=== PATIENT | female | born 1945 | race Two or more races ===

== ENCOUNTER 2020-12-20 08:22 | Emergency (ER) | payer MEDICARE, MEDICAID, SELFPAY ==
--- NOTE | ~2020-12-20 | US_ITS ---
EXAMINATION: US VENOUS ULTRASOUND WITH DOPPLER LOWER EXTREMITY, BILATERAL CLINICAL INFORMATION: Bilateral leg edema. History of cancer. COMPARISON: None TECHNIQUE: Ultrasound of the deep veins is performed from the hip to the calf with compression sonography and color and pulse Doppler assessment. Spectral analysis with color-flow imaging is performed. FINDINGS: RIGHT: There is normal venous compression and respiratory variation and augmented flow. The visualized common femoral vein, superficial femoral vein, profunda femoral vein, popliteal vein, and the trifurcation region shows no evidence of deep venous thrombosis. There is no significant popliteal fossa cyst. LEFT: There is normal venous compression and respiratory variation and augmented flow. The visualized common femoral vein, superficial femoral vein, profunda femoral vein, popliteal vein, and the trifurcation region shows no evidence of deep venous thrombosis. There is no significant popliteal fossa cyst. There is a small Quinonez's cyst measuring 3.9 x 0.9 cm. If the patient's symptoms persist, followup ultrasound in 5 days 7 days might be of value to exclude proximal propagation from a non-visualized calf vein. US/US venous duplex LE BI IMPRESSION: No DVT demonstrated in the bilateral lower extremity. There are small left Quinonez's cyst measuring 3.9 x 0.9 cm.
--- NOTE | ~2020-12-20 | XR_ITS ---
EXAMINATION: XR CHEST CLINICAL INFORMATION: Abdominal pain and swelling lower legs COMPARISON: None TECHNIQUE: 2 views of the chest were obtained. FINDINGS: The lungs are expanded and clear of acute pneumonic process. There is a 7 mm calcified nodule left upper lobe likely granuloma. Heart size and pulmonary vascularity is normal. No gross bony abnormality seen. XR/XR chest 2V IMPRESSION: No acute cardiopulmonary process seen.
--- NOTE | ~2020-12-20 | CT_ITS ---
EXAMINATION: CT ABDOMEN AND PELVIS WITH CONTRAST CLINICAL INFORMATION: Lower back pain and abdominal pain. History of breast cancer. COMPARISON: None TECHNIQUE: Multidetector volumetric images were obtained from the superior aspect of the liver through the pubic symphysis following administration 85 mL of Omnipaque 350 intravenous contrast. Sagittal and coronal reformatted images were obtained on the technologist's workstation. Oral contrast: No This CT examination was performed using dose optimization techniques as appropriate, variously including the following: *Automated exposure control *Adjustment of mA and/or kV according to patient size (this includes techniques or standardized protocols for targeted exams where dose is matched to indication/reason for exam; i.e. extremities or head) *Use of iterative reconstruction technique DLP: 1030 mGy-cm FINDINGS: LUNG BASES: The heart is mildly enlarged. No pleural or pericardial effusion. LIVER, GALLBLADDER, AND BILIARY TREE: There is an 8 mm cyst seen within segment 2 of the liver. No intrahepatic bile duct dilatation is evident. No suspicious solid masses seen. The gallbladder is unremarkable with no evidence of radiopaque gallstones, gallbladder wall thickening, or obvious pericholecystic inflammatory changes. PANCREAS: Unremarkable. SPLEEN: Unremarkable. ADRENAL GLANDS: Unremarkable. KIDNEYS AND URETERS: There is motion artifact present limiting evaluation of the mid and lower poles of the right kidney and lower pole left kidney. No renal calculi identified. No hydronephrosis. There are bilateral small regions of cortical scarring. There are subcentimeter low-density lesions seen bilaterally likely representing cysts. There is bilateral mild perinephric stranding. Ureters appear unremarkable. BLADDER: Unremarkable. GASTROINTESTINAL TRACT: No free air is identified. No free fluid. No dilated loops of large or small bowel. No evidence of pericolonic inflammatory change. The appendix is visualized and appears unremarkable. ABDOMINAL WALL: There is a midline infraumbilical anterior abdominal wall hernia containing a few loops of small bowel without bowel wall thickening or mesenteric inflammatory change or fluid. Abdominal wall Defect width is approximately 7 cm. LYMPH NODES: No lymphadenopathy appreciated. VASCULAR: Portal vein patent. No abdominal aortic aneurysm. There is prominent calcified plaque seen at the origin of the celiac artery. PELVIC VISCERA: Unremarkable. OSSEOUS STRUCTURES: Changes of enthesopathy present. No suspicious destructive bony lesions identified. Multilevel degenerative disc is present within the lower thoracic and lumbar spine with grade 1 spondylolisthesis at the L5-S1 level with facet arthropathy. CT/CT abdomen pelvis w con IMPRESSION: No suspicious lytic or sclerotic lesions. Degenerative disc disease with grade 1 spondylolisthesis L5-S1 and facet arthropathy. Limitations in evaluation of the kidneys but without hydronephrosis or calculi identified and without hydroureter. Infrarenal anterior abdominal wall hernia containing loops of small bowel within it without evidence of incarceration.
[2020-12-20 08:27] VITALS: BP 173/73; PULSE 75; RESP 18; TEMP 37.1; O2SAT 95; BMI 25.6
[2020-12-20 09:06] VITALS: BP 167/83; PULSE 72; RESP 20; TEMP 37.6; O2SAT 98
--- NOTE | 2020-12-20 09:28 | ECG_ITS ---
Test Reason : WEAKNESS Blood Pressure : / mmHG Vent. Rate : 064 BPM Atrial Rate : 064 BPM P-R Int : 136 ms QRS Dur : 072 ms QT Int : 416 ms P-R-T Axes : 048 -40 014 degrees QTc Int : 429 ms Normal sinus rhythm Left axis deviation Minimal voltage criteria for LVH, may be normal variant Abnormal ECG No previous ECGs available Referred By: Karol William Electronically Signed By:CARLOS MATT
--- NOTE | 2020-12-20 09:58 | ED.ABDPAIN ---
HPI - Abdominal Pain General Chief Complaint: Abdominal Pain Stated Complaint: back pain, abd pain Time Seen by Provider: 12/20/20 08:47 Source: patient and family (Son ) Mode of arrival: ambulatory Limitations: language barrier (Ivorian-speaking) and other (Poor historian both patient and son patient with history of Alzheimer's dementia/CVA) History of Present Illness HPI narrative: 75-year-old female who is Ivorian-speaking recently moved from [place] approximately 1 week ago with her son who is also Ivorian-speaking with a past medical history of Alzheimer's dementia, CVA with left-sided residual weakness currently walks with a walker, currently on only aspirin, hypertension, hyperlipidemia and breast cancer currently on p.o. anastrozole chronically for her breast presenting to the ED with complaints of lower abdominal pain and right-sided lower back pain since she moved here from [place] approximately 1 week ago. Son reports that she has also been constipated although she had a bowel movement in the past few days there were small little balls and hard. Although he reports normal color and bowel movement. Son reports that the mother has had an intermittent cough since she has arrived. Although he reports she tested negative for COVID in [place] and when she arrived here a week ago. Son and patient deny any fevers, dizziness, lightheadedness, changes in vision, nausea/vomiting, neck pain/stiffness, chest pain, shortness of breath, palpitations, dyspnea on exertion, orthopnea, dysuria, hematuria, abnormal vaginal discharge, diarrhea, black or bloody stools or any any new weakness or falls. Or any other symptoms complaints or concerns at this time. MD elicited complaint: abdominal pain Pertinent past history: constipation Onset (ago): week(s) (One week) Pain Consistency: constant Location: suprapubic Severity: mild Quality: aching Radiation: R flank and back Exacerbating factors: nothing Relieving factors: nothing Associated symptoms: denies other symptoms Related Data Previous Rx's Medication Instructions Recorded acetaminophen-codeine 1 tab PO Q8H PRN #10 tab 12/20/20 cyclobenzaprine 10 mg PO Q8H #10 tab 12/20/20 Allergies Allergy/AdvReac Type Severity Reaction Status Date / Time No Known Allergies Allergy Verified 12/20/20 09:28 Review of Systems Review of Systems Constitutional : No trauma, No Weight loss, No Fever, No Chills, ENT/Mouth : No Hearing loss, No Ear Pain, No Nasal Congestion, No Sinus Pain, No Hoarseness, No sore throat, No Rhinorrhea, No Swallowing Difficulty Cardiovascular : No Chest Pain, No SOB, No CALIXTO, No Orthopnea Respiratory : No Cough, No Dyspnea, No wheezing Gastrointestinal : + abdominal pain, + intermittent constipation, No Nausea, No Vomiting, No Diarrhea, No Hematochezia, No Melena Genitourinary : No Dysuria, No Urinary Frequency, No Hematuria, No Urinary or Bowel Incontinence/retention Musculoskeletal : + Back pain, No neck pain, No joint stiffness, No joint swelling Skin : No Skin Lesions, No rash or signs of infection Neuro : No Weakness, No radiation, No Numbness, No Paresthesias, No headache, no loss of bowel or bladder incontinence, no saddle anesthesia Denies history of IV drug usage. Yes all other systems are reviewed and are negative Physical Exam Vital Signs: Vital Signs: Last Vital Signs Temp 989.5 F H 12/20/20 14:00 Pulse 81 12/20/20 14:00 Resp 16 12/20/20 14:00 BP 186/85 H 12/20/20 14:00 Pulse Ox 94 12/20/20 14:00 Body Mass Index 25.6 vital signs have been reviewed as normal and appeared to be correct. Blood pressure hypertensive at 173/73. Heart rate normal. Respiration rate normal. Temperature normal. Oxygen saturation normal. Appearance: Alert. Oriented X3. No acute distress. Head: Normal external exam. Normocephalic. Atraumatic. Eyes: PERRLA. EOMI. Conjunctiva and sclera normal. Eyelids normal. ENT: EAC normal. TM's Normal. Pharynx normal. Uvula midline. Moist mucous membranes. No trismus noted. No drooling noted. No muffled voice noted. Neck: Normal inspection. Neck supple. FROM. No adenopathy. Thyroid Normal. No meningeal signs. No neck mass noted. CVS: Normal heart rate and rhythm. Heart sound normal. No murmurs noted. Pulses normal throughout. Respiratory: No respiratory distress. Painless inspiration. Breath sounds normal. No wheezes/rales/rhonchi noted. Chest nontender. No accessory muscle usage noted or decreased air movement noted. Abdomen: Soft and mild tenderness to the suprapubic/right flank area. Bowel sounds normal in all 4 quadrants. No distention noted. No organomegaly noted. No visible injury noted. Back: No CVA tenderness. Full range of motion noted. No obvious deformities, or edema. Mild para-spinal muscular tenderness from lumbar region to coccyx. Full ROM in back and lower extremities. 5/5 strength hip extension/flexion, abduction, adduction. Mild Lumbar pain with hip flexion against resistance. Straight leg raise test negative on right; Straight leg raise test negative on left; Reflexes normal ankle and knee bilaterally; patient has baseline weakness to left lower extremity no weakness noted to right lower extremity Skin: Skin warm and dry. Normal skin color. Normal skin turgor. No rashes/lesions/lacerations noted. Extremities: +1 b/l lower pitting extremity edema. No calf tenderness noted. Patient with mild residual weakness and limited range of motion to left upper arm and left lower extremity similar compared to baseline per patient and son at bedside otherwise all other Extremities exhibit normal range of motion and nontender. Neuro: Oriented X 3. No motor deficit. No sensory deficit. Reflexes normal. Course Course Course Narrative: 9:30am - 75-year-old female presenting with her son both are Ivorian-speaking recently moved from [place] with complaints of lower abdominal pain radiating to her right flank/right lower back over the past week with associated constipation. - on exam patient is alert at baseline for mentation per son. Has left-sided residual weakness at baseline per son and patient. Patient mildly hypertensive at 173/73 otherwise all other vitals are within normal limits. Patient not in any acute distress. Lungs clear to auscultation. CV RRR. Abdomen is soft and mild tenderness to suprapubic abdomen/right flank and lower back. No obvious CVA tenderness noted. Patient also noted to have bilateral lower extremity +1 pitting edema. No calf tenderness is noted. - Plan: Labs, CXR, of abdomen and pelvis with IV contrast, EKG, bilateral venous duplex ultrasound of lower extremity and UA and re-evaluate. Reevaluation(s) Reevaluation #1: - BUN 20 - total bilirubin 1.4 - BNP 234 - otherwise all other labs within normal limits. UA within normal limits no evidence of UTI. COVID/RSV/flu negative. 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 Also intra renal abdominal wall hernia containing loops of bowel within it without evidence of incarceration. - therefore will DC home with symptomatic treatment and general surgical referral instructions return if any new or worsening symptoms to follow up with a primary care provider. Patient and family at bedside with her son understand and agree with this plan. Time: 14:50 MDM - Abdominal Pain Differential Diagnosis Differential diagnosis: Likely aortic dissection, acute appendicitis, bowel perforation, calculus of kidney, constipation, mesenteric ischemia, renal colic and small bowel obstruction Medical Records Attestation: I reviewed the patient's medical records. Lab Data Attestation: I reviewed the patient's lab results. Result diagrams: 12/20/20 11:37 12/20/20 11:37 Labs: Lab Results 12/20/20 12/20/20 12/20/20 Range/Units 10:19 11:37 11:37 WBC 8.2 (4.8-10.8) X10*3/uL RBC 5.23 (4.20-5.50) X10*6/uL Hgb 13.9 (12.0-16.0) g/dl Hct 43.8 (37-47) % MCV 83.7 (80-98) fL MCH 26.6 L (27.0-33.0) pg MCHC 31.7 (31.0-35.0) g/dl RDW 15.9 (11.0-16.0) % Plt Count 661 H (160-400) X10*3/uL MPV 9.9 (9.4-12.3) fL Immature Gran % (Auto) 0.4 (0.0-0.4) % Neut % (Auto) 77.1 H (45-73) % Lymph % (Auto) 12.7 L (20-40) % [facility] % (Auto) 7.1 (2-11) % Eos % (Auto) 2.1 (0-4) % Baso % (Auto) 0.6 (0-2) % Lymph # (Auto) 1.0 L (1.2-4.9) X10*3/uL [facility] # (Auto) 0.6 (0.1-1.2) X10*3/uL Eos # (Auto) 0.2 (0.0-0.4) X10*3/uL Baso # (Auto) 0.1 (0.0-0.2) X10*3/uL Abs Immat Gran (auto) 0.03 (0.00-0.03) X10*3/uL Absolute Neuts (auto) 6.3 (2.0-8.3) X10*3/uL Absolute Nucleated RBC 0.000 (0.0-0.012) X10*3/uL Nucleated RBC % (auto) 0.0 (0.0-0.2) /100WBC Hold Purple Top PT 13.0 (10.8-13.0) SEC INR 1.1 (0.9-1.1) APTT (24.1-38.0) SEC Sodium (135-145) mmol/L Potassium (3.3-5.1) mmol/L Chloride (96-108) mmol/L Carbon Dioxide (22-29) mmol/L Anion Gap (12-20) BUN (9-16) mg/dL Creatinine (0.5-1.4) mg/dL Estim Creat Clear Calc Estimated GFR Random Glucose (60-115) mg/dL Calcium (8.4-10.2) mg/dL Magnesium (1.6-2.6) mg/dL Total Bilirubin (0.0-1.0) mg/dL AST (5-31) U/L ALT (0-31) U/L Alkaline Phosphatase (39-117) U/L B-Natriuretic Peptide (<100) pg/mL Total Protein (6.5-8.0) g/dL Albumin (3.5-5.0) g/dL Lipase (8-78) U/L Urine Color STRAW Urine Appearance CLEAR Urine pH 7.0 (5.0-8.0) Ur Specific [place] 1.010 (1.005-1.025) Urine Protein NEG (NEG-TRACE) MG/DL Urine Glucose (UA) NEG (NEG) MG/DL Urine Ketones NEG (NEG) MG/DL Urine Blood NEG (NEG) Urine Nitrite NEG (NEG) Ur Leukocyte Esterase NEG (NEG) Coronavirus (PCR) (Negative) Influenza Type A (PCR) (Negative) Influenza Type B (PCR) (Negative) RSV RNA Qual (PCR) (Negative) 12/20/20 12/20/20 12/20/20 Range/Units 11:37 11:37 11:37 WBC (4.8-10.8) X10*3/uL RBC (4.20-5.50) X10*6/uL Hgb (12.0-16.0) g/dl Hct (37-47) % MCV (80-98) fL MCH (27.0-33.0) pg MCHC (31.0-35.0) g/dl RDW (11.0-16.0) % Plt Count (160-400) X10*3/uL MPV (9.4-12.3) fL Immature Gran % (Auto) (0.0-0.4) % Neut % (Auto) (45-73) % Lymph % (Auto) (20-40) % [facility] % (Auto) (2-11) % Eos % (Auto) (0-4) % Baso % (Auto) (0-2) % Lymph # (Auto) (1.2-4.9) X10*3/uL [facility] # (Auto) (0.1-1.2) X10*3/uL Eos # (Auto) (0.0-0.4) X10*3/uL Baso # (Auto) (0.0-0.2) X10*3/uL Abs Immat Gran (auto) (0.00-0.03) X10*3/uL Absolute Neuts (auto) (2.0-8.3) X10*3/uL Absolute Nucleated RBC (0.0-0.012) X10*3/uL Nucleated RBC % (auto) (0.0-0.2) /100WBC Hold Purple Top PT (10.8-13.0) SEC INR (0.9-1.1) APTT (24.1-38.0) SEC Sodium (135-145) mmol/L Potassium (3.3-5.1) mmol/L Chloride (96-108) mmol/L Carbon Dioxide (22-29) mmol/L Anion Gap (12-20) BUN (9-16) mg/dL Creatinine (0.5-1.4) mg/dL Estim Creat Clear Calc Estimated GFR Random Glucose (60-115) mg/dL Calcium (8.4-10.2) mg/dL Magnesium 2.2 (1.6-2.6) mg/dL Total Bilirubin (0.0-1.0) mg/dL AST (5-31) U/L ALT (0-31) U/L Alkaline Phosphatase (39-117) U/L B-Natriuretic Peptide 234 H (<100) pg/mL Total Protein (6.5-8.0) g/dL Albumin (3.5-5.0) g/dL Lipase (8-78) U/L Urine Color Urine Appearance Urine pH (5.0-8.0) Ur Specific [place] (1.005-1.025) Urine Protein (NEG-TRACE) MG/DL Urine Glucose (UA) (NEG) MG/DL Urine Ketones (NEG) MG/DL Urine Blood (NEG) Urine Nitrite (NEG) Ur Leukocyte Esterase (NEG) Coronavirus (PCR) NEGATIVE (Negative) Influenza Type A (PCR) NEGATIVE (Negative) Influenza Type B (PCR) NEGATIVE (Negative) RSV RNA Qual (PCR) NEGATIVE (Negative) 12/20/20 12/20/20 12/20/20 Range/Units 11:37 11:37 11:37 WBC (4.8-10.8) X10*3/uL RBC (4.20-5.50) X10*6/uL Hgb (12.0-16.0) g/dl Hct (37-47) % MCV (80-98) fL MCH (27.0-33.0) pg MCHC (31.0-35.0) g/dl RDW (11.0-16.0) % Plt Count (160-400) X10*3/uL MPV (9.4-12.3) fL Immature Gran % (Auto) (0.0-0.4) % Neut % (Auto) (45-73) % Lymph % (Auto) (20-40) % [facility] % (Auto) (2-11) % Eos % (Auto) (0-4) % Baso % (Auto) (0-2) % Lymph # (Auto) (1.2-4.9) X10*3/uL [facility] # (Auto) (0.1-1.2) X10*3/uL Eos # (Auto) (0.0-0.4) X10*3/uL Baso # (Auto) (0.0-0.2) X10*3/uL Abs Immat Gran (auto) (0.00-0.03) X10*3/uL Absolute Neuts (auto) (2.0-8.3) X10*3/uL Absolute Nucleated RBC (0.0-0.012) X10*3/uL Nucleated RBC % (auto) (0.0-0.2) /100WBC Hold Purple Top SEE NOTE PT (10.8-13.0) SEC INR (0.9-1.1) APTT 33.9 (24.1-38.0) SEC Sodium 142 (135-145) mmol/L Potassium 4.3 (3.3-5.1) mmol/L Chloride 108 (96-108) mmol/L Carbon Dioxide 25 (22-29) mmol/L Anion Gap 13 (12-20) BUN 20 H (9-16) mg/dL Creatinine 1.11 (0.5-1.4) mg/dL Estim Creat Clear Calc 38.3 Estimated GFR 48 Random Glucose 93 (60-115) mg/dL Calcium 9.1 (8.4-10.2) mg/dL Magnesium (1.6-2.6) mg/dL Total Bilirubin 1.4 H (0.0-1.0) mg/dL AST 22 (5-31) U/L ALT 17 (0-31) U/L Alkaline Phosphatase 59 (39-117) U/L B-Natriuretic Peptide (<100) pg/mL Total Protein 6.7 (6.5-8.0) g/dL Albumin 3.8 (3.5-5.0) g/dL Lipase 47 (8-78) U/L Urine Color Urine Appearance Urine pH (5.0-8.0) Ur Specific [place] (1.005-1.025) Urine Protein (NEG-TRACE) MG/DL Urine Glucose (UA) (NEG) MG/DL Urine Ketones (NEG) MG/DL Urine Blood (NEG) Urine Nitrite (NEG) Ur Leukocyte Esterase (NEG) Coronavirus (PCR) (Negative) Influenza Type A (PCR) (Negative) Influenza Type B (PCR) (Negative) RSV RNA Qual (PCR) (Negative) Imaging Data Chest x-ray: Attestation: I personally reviewed and interpreted this imaging study as follows: Radiologist's impression: FINDINGS: The lungs are expanded and clear of acute pneumonic process. There is a 7 mm calcified nodule left upper lobe likely granuloma. Heart size and pulmonary vascularity is normal. No gross bony abnormality seen. XR/XR chest 2V IMPRESSION: No acute cardiopulmonary process seen. Bilateral lower extremity venous duplex ultrasound: Attestation: I personally reviewed and interpreted this imaging study as follows: Radiologist's impression: FINDINGS: RIGHT: There is normal venous compression and respiratory variation and augmented flow. The visualized common femoral vein, superficial femoral vein, profunda femoral vein, popliteal vein, and the trifurcation region shows no evidence of deep venous thrombosis. There is no significant popliteal fossa cyst. LEFT: There is normal venous compression and respiratory variation and augmented flow. The visualized common femoral vein, superficial femoral vein, profunda femoral vein, popliteal vein, and the trifurcation region shows no evidence of deep venous thrombosis. There is no significant popliteal fossa cyst. There is a small Quinonez's cyst measuring 3.9 x 0.9 cm. If the patient's symptoms persist, followup ultrasound in 5 days 7 days might be of value to exclude proximal propagation from a non-visualized calf vein. US/US venous duplex LE BI IMPRESSION: No DVT demonstrated in the bilateral lower extremity. There are small left Quinonez's cyst measuring 3.[address] scan of abdomen pelvis IV contrast: Attestation: I personally reviewed and interpreted this imaging study as follows: Radiologist's impression: FINDINGS: LUNG BASES: The heart is mildly enlarged. No pleural or pericardial effusion. LIVER, GALLBLADDER, AND BILIARY TREE: There is an 8 mm cyst seen within segment 2 of the liver. No intrahepatic bile duct dilatation is evident. No suspicious solid masses seen. The gallbladder is unremarkable with no evidence of radiopaque gallstones, gallbladder wall thickening, or obvious pericholecystic inflammatory changes. PANCREAS: Unremarkable. SPLEEN: Unremarkable. ADRENAL GLANDS: Unremarkable. KIDNEYS AND URETERS: There is motion artifact present limiting evaluation of the mid and lower poles of the right kidney and lower pole left kidney. No renal calculi identified. No hydronephrosis. There are bilateral small regions of cortical scarring. There are subcentimeter low-density lesions seen bilaterally likely representing cysts. There is bilateral mild perinephric stranding. Ureters appear unremarkable. BLADDER: Unremarkable. GASTROINTESTINAL TRACT: No free air is identified. No free fluid. No dilated loops of large or small bowel. No evidence of pericolonic inflammatory change. The appendix is visualized and appears unremarkable. ABDOMINAL WALL: There is a midline infraumbilical anterior abdominal wall hernia containing a few loops of small bowel without bowel wall thickening or mesenteric inflammatory change or fluid. Abdominal wall Defect width is approximately 7 cm. LYMPH NODES: No lymphadenopathy appreciated. VASCULAR: Portal vein patent. No abdominal aortic aneurysm. There is prominent calcified plaque seen at the origin of the celiac artery. PELVIC VISCERA: Unremarkable. OSSEOUS STRUCTURES: Changes of enthesopathy present. No suspicious destructive bony lesions identified. Multilevel degenerative disc is present within the lower thoracic and lumbar spine with grade 1 spondylolisthesis at the L5-S1 level with facet arthropathy. CT/CT abdomen pelvis w con IMPRESSION: No suspicious lytic or sclerotic lesions. Degenerative disc disease with grade 1 spondylolisthesis L5-S1 and facet arthropathy. Limitations in evaluation of the kidneys but without hydronephrosis or calculi identified and without hydroureter. Infrarenal anterior abdominal wall hernia containing loops of small bowel within it without evidence of incarceration. ECG Data Attestation: I personally reviewed and interpreted this ECG as follows: ECG interpretation date: 12/20/20 ECG interpretation time: 09:57 Interpretation: Normal sinus rhythm with a ventricular rate of 64 with left axis deviation with minimal voltage criteria for LVH with nonspecific ST abnormalities no acute ischemic changes noted. No prior EKGs in our system to compare to as patient just arrived from [place]. Critical Care Time Critical Care Time Critical Care Time: Yes Total Critical Care Time: 60 Attestation: I personally attest to this time spent taking care of the patient Discharge Plan Discharge Clinical Impression: Degenerative disc disease, lumbar, Abdominal wall hernia Patient Disposition: Home, Self-Care Instructions: Degenerative Disc Disease (ED), Ventral Hernia (ED) Prescriptions: New cyclobenzaprine 10 mg tablet 10 mg PO Q8H Qty: 10 RF: 0 acetaminophen-codeine 300-30 mg tablet 1 tab PO Q8H PRN (Reason: pain) Qty: 10 RF: 0 Referrals: Duke Gudino MD [Physician] - 2 days (Abdominal hernia) Print Language: Ivorian [facility] Past Medical History Attestation statement: The following information was validated with the patient. Social History Social History Alcohol intake: never Smoking Status: Never smoker Use of substances other than those prescribed or required for medical reasons: No Advance Directives: Yes Advance Directives Information Provided: Yes Advance Directives on File: No
[2020-12-20 10:42] LABS: Glucose Urine UA NEG (NEG); Leukocyte Esterase Urine NEG (NEG); Nitrite Urine NEG (NEG); Urine Blood NEG (NEG); Urine Ketones NEG (NEG); Urine Protein NEG (NEG-TRACE)
[2020-12-20 10:43] LABS: Appearance Urine CLEAR; Color Urine STRAW
[2020-12-20 11:18] VITALS: BP 153/80; PULSE 70; RESP 16; O2SAT 98
--- NOTE | 2020-12-20 11:25 | PC.NURSE ---
PT IS A/O X 2 DID NOT KNOW THE YEAR. PT'S SON IS AT BEDSIDE. PT SON STATES THAT PT FIRST C/O R FLANK PAIN THEN ABD PAIN. PT HAS URINE FREQUENCY X 1WK. PT CAME FROM [place] 1 WK AGO AND HER SON HAS BEEN HER [employer] INSPECTOR.
[2020-12-20 11:44] LABS: MANUAL DIFF FLAG NO
[2020-12-20 11:47] LABS: Basophils Absolute Auto 0.1 X10*3/uL (0.0-0.2); Basophils Percent Auto 0.6 % (0-2); Eosinophils Absolute Auto 0.2 X10*3/uL (0.0-0.4); Eosinophils Percent Auto 2.1 % (0-4); Hematocrit 43.8 % (37-47); Hemoglobin 13.9 g/dl (12.0-16.0); Imm Gran Abs Auto 0.03 X10*3/uL (0.00-0.03); Imm Gran Pct Auto 0.4 % (0.0-0.4); Lymphocytes Percent Auto 12.7 % (20-40); Mean Corpuscular HGB Conc 31.7 g/dl (31.0-35.0); Mean Corpuscular Hemoglobin 26.6 pg (27.0-33.0); Mean Corpuscular Volume 83.7 fL (80-98); Mean Platelet Volume 9.9 fL (9.4-12.3); Monocytes Absolute Auto 0.6 X10*3/uL (0.1-1.2); Monocytes Percent Auto 7.1 % (2-11); Neutrophils Absolute Auto 6.3 X10*3/uL (2.0-8.3); Neutrophils Percent Auto 77.1 % (45-73); Platelet Count 661 X10*3/uL (160-400); Red Blood Count 5.23 X10*6/uL (4.20-5.50); Red Cell Distribution Width 15.9 % (11.0-16.0); White Blood Count 8.2 X10*3/uL (4.8-10.8)
[2020-12-20 11:54] LABS: INTERNATIONAL NORM RATIO 1.1 (0.9-1.1)
[2020-12-20 11:57] LABS: Partial Thromboplastin Time 33.9 SEC (24.1-38.0)
[2020-12-20 12:12] LABS: Alanine Aminotransferase 17 U/L (0-31); Albumin Level 3.8 g/dL (3.5-5.0); Alkaline Phosphatase 59 U/L (39-117); Anion Gap 13 (12-20); Aspartate Amino Transferase 22 U/L (5-31); Bilirubin Total 1.4 mg/dL (0.0-1.0); Blood Urea Nitrogen 20 mg/dL (9-16); Calcium 9.1 mg/dL (8.4-10.2); Carbon Dioxide 25 mmol/L (22-29); Chloride 108 mmol/L (96-108); Creatinine Clr Calc Pharmacy 38.3; Estimated Glomerular Filt Rate 48; Glucose Random 93 mg/dL (60-115); Lipase 47 U/L (8-78); Potassium 4.3 mmol/L (3.3-5.1); Sodium 142 mmol/L (135-145); Total Protein 6.7 g/dL (6.5-8.0)
[2020-12-20 12:13] LABS: Magnesium 2.2 mg/dL (1.6-2.6)
[2020-12-20 12:17] LABS: B Type Natriuretic Peptide 234 pg/mL (<100)
[2020-12-20 12:27] LABS: Influenza A PCR NEGATIVE (Negative); Influenza B PCR NEGATIVE (Negative); Resp Syncy Virus RNA Qual PCR NEGATIVE (Negative); SARS COV2 PCR INHOUSE NEGATIVE (Negative)
[2020-12-20 14:00] VITALS: BP 186/85; PULSE 81; RESP 16; TEMP 36.9; O2SAT 94
[2020-12-20] MEDS: iohexoL 350 MG/ML 100 ML INFUS..BTL IV (14:00)
--- NOTE | 2020-12-20 14:09 | PC.NURSE ---
PER PT'S SON, PT DID NOT TAKE HER B/P MEDS TODAY 186/85-76, PT IS ASYMPTOMATIC. AWARE.
--- NOTE | 2020-12-20 14:14 | PC.NURSE ---
PER MLP (DAVID) PT/SON HAD PT'S MEDS ON THEIR PERSON. MLP (DAVID) GAVE PERMISSION FOR PT TO OWN MEDS WHICH WERE GIVEN TO PT BY HER SON. PT WAS GIVEN METORPROLOL TARTRATE 50MG PO X 1, LISINOPRIL 40MG PO X 1 AND AMLODIPINE 5MG PO X 1. WITH WATER.
== END 2020-12-20 15:03 | disposition home or self-care (01) ==
PROVIDERS: Physician Assistant Medical; Emergency Provider Emergency Medicine
DX: M51.36 Other intervertebral disc degeneration, lumbar region (principal); K43.9 Ventral hernia without obstruction or gangrene; R60.0 Localized edema; R10.30 Lower abdominal pain, unspecified; M54.5 Low back pain; K59.00 Constipation, unspecified; I10 Essential (primary) hypertension; Z20.822 Contact with and (suspected) exposure to COVID-19; E78.5 Hyperlipidemia, unspecified; G30.9 Alzheimer's disease, unspecified; F02.80 Dementia in other diseases classified elsewhere, unspecified severity, without behavioral disturbance, psychotic disturbance, mood disturbance, and anxiety; Z86.73 Personal history of transient ischemic attack (TIA), and cerebral infarction without residual deficits; Z85.3 Personal history of malignant neoplasm of breast; Z79.82 Long term (current) use of aspirin
CPT/HCPCS: 0241U; 36415; 71046; 74177; 80053; 81003; 83690; 83735; 83880; 85025; 85610; 85730; 93005; 93970; 99285; 99291; Q9967

== ENCOUNTER 2020-12-29 08:20 | Emergency (ER) | payer MEDICARE, MEDICAID, SELFPAY ==
[2020-12-29] VITALS (8 sets, daily range): BP systolic 114–172; BP diastolic 51–83; PULSE 63–93; RESP 17–20; TEMP 37.2–37.3; O2SAT 96–99; BMI 29.7
--- NOTE | ~2020-12-29 | XR_ITS ---
EXAMINATION: TWO-VIEW CHEST, RIGHT SHOULDER, RIGHT ELBOW, AND RIGHT HAND AND WRIST. CLINICAL INFORMATION: Pain COMPARISON: Chest x-ray of December 20, 2020 TECHNIQUE: Three-view right hand and wrist, 3 view right elbow, 2 view right shoulder, and PA and lateral chest. FINDINGS: PA and lateral views of the chest do not demonstrate any evidence of acute parenchymal disease, pneumothorax, or pleural effusion. Heart normal size. No evidence of pulmonary edema. Multilevel degenerative disc disease is seen within the thoracic spine. 2 views of the right shoulder demonstrate calcific tendinitis. No acute fracture or dislocation is evident. There appears be osteopenia of visualized bones. Views of the right elbow do not demonstrate any evidence of acute fracture or dislocation. There appears to be medial and lateral epicondylitis. A small effusion is evident. Clinical correlation with recent acute trauma is recommended. Mild spurring is present. An osteochondroma is seen about the proximal radius. Views of the right hand and wrist do not demonstrate any evidence of acute fracture or dislocation. There is some degenerative change involving the distal radius. There is some mild degenerative spurring seen about the first carpal metacarpal joint. There is a region of mildly increased density with some cortical irregularity involving the shaft of the fifth metacarpal and a metastatic lesion cannot be excluded. There is also a region of some density about the distal diaphysis of the second metacarpal which may be related to osteopenia or possible infiltrative process. There appears to be some mild cortical irregularity in this region along the radial aspect. The fingers are held in flexion making evaluation of the fingers difficult. XR/XR shoulder RT min 2V IMPRESSION: Calcific tendinitis of the right shoulder. No acute parenchymal disease within the chest. Small right elbow effusion with mediolateral epicondylitis. Occult fracture not excluded. Osteochondroma distal radius. No evidence of acute fracture or dislocation of the right hand and wrist but question possible infiltrative processes within the second and fifth metacarpals.
--- NOTE | ~2020-12-29 | CT_ITS ---
EXAMINATION: CT ABDOMEN AND PELVIS WITHOUT CONTRAST CLINICAL INFORMATION: Atraumatic right flank/back pain and hip pain. COMPARISON: CT abdomen 12/20/2020 TECHNIQUE: Multidetector volumetric imaging was performed from the superior aspect of the liver through the pubic symphysis. Sagittal and coronal reformatted images were obtained on the technologist's workstation. This CT examination was performed using dose optimization techniques as appropriate, variously including the following: *Automated exposure control *Adjustment of mA and/or kV according to patient size (this includes techniques or standardized protocols for targeted exams where dose is matched to indication/reason for exam; i.e. extremities or head) *Use of iterative reconstruction technique DLP: 1097 mGy-cm FINDINGS: LUNG BASES: The heart size is normal. There is minimal bibasilar atelectasis. LIVER, GALLBLADDER, AND BILIARY TREE: The liver is normal in size, shape, and attenuation. There is a small hypodense area in the left hepatic lobe measuring 7 mm probable cyst. No additional lesions seen. There is no intrahepatic ductal dilatation. The gallbladder is unremarkable with no evidence of radiopaque gallstones, gallbladder wall thickening, or obvious pericholecystic inflammatory changes. PANCREAS: Unremarkable. SPLEEN: The spleen is enlarged measuring 13 cm in anterior posterior length but homogeneous in density. ADRENAL GLANDS: The left adrenal gland is mildly prominent compared to right side. KIDNEYS AND URETERS: The kidneys are normal in size, shape, and attenuation. There are 2 punctate 1 mm calcifications or stones in the lower pole calyx right kidney. No additional radiopaque calculi seen. There is no caliectasis or hydronephrosis. BLADDER: The bladder is distended and appears unremarkable. GASTROINTESTINAL TRACT: There is scattered stool and gas seen throughout the colon without any significant distention. The small bowel loops are normal caliber. The appendix is normal caliber. There is no free air or inflammatory changes. ABDOMINAL WALL: There is diffuse thinning of infraumbilical midline anterior abdominal wall with mild herniation of small bowel segments similar to previous study. LYMPH NODES: Normal. VASCULAR: Unremarkable. PELVIC VISCERA: The uterus is surgically removed or atrophied. No adnexal mass seen. There is no free fluid. OSSEOUS STRUCTURES: There is anterolisthesis L5 over S1 with degenerative vacuum disc phenomena L5-S1 disc level and L1-L2 disc level. There is no fracture, lytic or sclerotic process seen. There is mild bilateral neural foraminal narrowing at L5-S1 disc level from underlying moderate diffuse pseudo disc bulge and facet joint arthropathy. CT/CT abdomen pelvis wo con IMPRESSION: Two punctate 1 mm calcifications seen in lower pole calyx without any caliectasis. These were not well visualized on the previous study. These were not visualized on the previous CT abdomen exam. Mild constipation. Infraumbilical anterior abdominal wall hernia containing loop of small bowel segments. Prominent left adrenal gland, stable. Mild splenomegaly. Probable small cyst left hepatic lobe.
--- NOTE | 2020-12-29 09:10 | ECG_ITS ---
Test Reason : ABDOMINAL PAIN Blood Pressure : / mmHG Vent. Rate : 066 BPM Atrial Rate : 066 BPM P-R Int : 136 ms QRS Dur : 076 ms QT Int : 418 ms P-R-T Axes : 050 -41 014 degrees QTc Int : 438 ms Normal sinus rhythm Left axis deviation Minimal voltage criteria for LVH, may be normal variant Abnormal ECG When compared with ECG of 20-DEC-2020 09:57, No significant change was found Referred By: Karol William Electronically Signed By:Jimmy Martínez
--- NOTE | 2020-12-29 10:50 | ED_ITS ---
HPI - Back Pain/Injury General Chief Complaint: Abdominal Pain Stated Complaint: r flank pain Time Seen by Provider: 12/29/20 08:52 Source: patient and family (Son who is [place]ayan-speaking) Mode of arrival: ambulatory Limitations: language barrier (Patient and son [place]ayan-speaking) and other (Patient is a poor historian she has a history of Alzheimer's dementia/CVA with left residual weakness) History of Present Illness HPI Narrative: 75-year-old female who is [place]-speaking recently moved from [place] approximately 2 weeks ago with her son who permanently resides here who are both [place]ayan speaking patient has a past medical history of Alzheimer's dementia, CVA with left-sided residual weakness currently walks with a walker, currently on only aspirin, hypertension, hyperlipidemia and breast cancer cur rently on p.o. anastrozole chronically for her breast presenting to the ED with complaints of atraumatic right arm/shoulder pain and right back/hip pain for the past few days worse today. Her son reports that there are multiple steps in her household in her bedroom is upstairs and so is the bathroom therefore every day multiple times throughout the day she is leaning on him while he brings her up the stairs and it is becoming very difficult for the son. He reports he is also not able to sleep due to the patient just complaining of pain in multiple aspects of her body but mainly in the right arm/right shoulder/right back/right hip even when he tries to reposition her in the bed. He reports that she has not fallen. She is not on any blood thinners other than the aspirin. Son and patient deny any fevers, dizziness, lightheadedness, changes in vision, nausea/vomiting, neck pain/stiffness, sore throat, cough, chest pain, dyspnea on exertion, orthopnea, shortness of breath, palpitations, abdominal pain, dysuria, hematuria, abnormal vaginal discharge, diarrhea, black or bloody stools, falls, new focal or general weakness or any other symptoms complaints or concerns at this time. Related Data Previous Rx's Medication Instructions Recorded acetaminophen-codeine 1 tab PO Q8H PRN #10 tab 12/20/20 cyclobenzaprine 10 mg PO Q8H #10 tab 12/20/20 acetaminophen [Tylenol Extra 1,000 mg PO QID PRN #14 tab 12/29/20 Strength] cyclobenzaprine 10 mg PO Q8H #10 tab 12/29/20 lorazepam [Ativan] 0.5 mg PO BEDTIME PRN #20 tab 12/29/20 wheelchair #1 ea 12/29/20 Allergies Allergy/AdvReac Type Severity Reaction Status Date / Time No Known Allergies Allergy Verified 12/20/20 09:28 Review of Systems Review of Systems: Constitutional : No trauma, No Weight loss, No Fever, No Chills, ENT/Mouth : No Hearing loss, No Ear Pain, No Nasal Congestion, No Sinus Pain, No Hoarseness, No sore throat, No Rhinorrhea, No Swallowing Difficulty Cardiovascular : No Chest Pain, No SOB, No CALIXTO, No orthopnea Respiratory : No Cough, No Dyspnea Gastrointestinal : No Nausea, No Vomiting, No Diarrhea, No abdominal Pain, No Hematochezia, No Melena Genitourinary : No Dysuria, No Urinary Frequency, No Hematuria, No Urinary or Bowel Incontinence/retention Musculoskeletal : + Back pain, + Right arm joint pain, No neck pain, No joint stiffness, No joint swelling Skin : No Skin Lesions, No rash or signs of infection Neuro : Patient has chronic left-sided residual weakness from CVA no new focal weakness. No radiation, No Numbness, No Paresthesias, No headache, no loss of bowel or bladder incontinence, no saddle anesthesia, No radiation Denies history of IV drug usage. Yes all other systems are reviewed and are negative [facility] Past Medical History Attestation statement: The following information was validated with the patient. Social History Social History Alcohol intake: never Smoking Status: Never smoker Advance Directives: No Advance Directives Information Provided: Yes Physical Exam Vital Signs: Vital Signs: Last Vital Signs Temp 99.2 F 12/29/20 12:00 Pulse 93 12/29/20 15:04 Resp 18 12/29/20 14:14 BP 136/79 12/29/20 15:04 Pulse Ox 96 12/29/20 12:00 Body Mass Index 29.7 vital signs have been reviewed as normal and appeared to be correct. Blood pressure normal. Heart rate normal. Respiration rate normal. Temperature normal. Oxygen saturation normal. Appearance: Alert. Oriented X3. No acute distress. Head: Normal external exam. Normocephalic. Atraumatic. No Pradhan signs noted. No raccoon eyes noted Eyes: PERRLA. EOMI. Conjunctiva and sclera normal. Eyelids normal. ENT: EAC normal. TM's Normal. Pharynx normal. Uvula midline. Moist mucous membranes. No trismus noted. No drooling noted. No muffled voice noted. Neck: Normal inspection. Neck supple. FROM. No adenopathy. Thyroid Normal. No meningeal signs. No neck mass noted. CVS: Normal heart rate and rhythm. Heart sound normal. No murmurs noted. Pulses normal throughout. Respiratory: No respiratory distress. Painless inspiration. Breath sounds normal. No wheezes/rales/rhonchi noted. Chest nontender. No accessory muscle usage noted or decreased air movement noted. Abdomen: Soft and nontender. Bowel sounds normal in all 4 quadrants. No distention noted. No organomegaly noted. No visible injury noted. Back: No CVA tenderness. Full range of motion noted. No obvious deformities, or edema. Mild para-spinal muscular tenderness from lumbar region to coccyx. Full ROM in back and lower extremities. 5/5 strength hip extension/flexion, abduction, adduction. Mild Lumbar pain with hip flexion against resistance. Straight leg raise test negative on right; Straight leg raise test negative on left; Reflexes normal ankle and knee bilaterally; EHL motor strength normal bilaterally. No rashes/lesion/induration/fluctuance or signs infection noted. Skin: Skin warm and dry. Normal skin color. Normal skin turgor. No rashes/lesions/lacerations noted. Extremities: No lower extremity edema. No calf tenderness noted. Patient with moderate tenderness to palpation to right hand/wrist/forearm/elbow/upper arm/elbow although patient has full range of motion no signs of trauma and no pitting edema noted. No laxity noted to all joints. No signs of infection noted. Patient with residual weakness and limited range of motion to left upper arm and left lower extremity similar when compared to baseline per patient and son. Otherwise all other Extremities exhibit normal range of motion and nontender. Neuro: Oriented X 3. No motor deficit. No sensory deficit. Reflexes normal. Patient has a normal steady gait. Course Course Course Narrative: 16pm - labs reviewed and patient with an elevated white blood cell count 43876. - BUN 17. - Random glucose 131. - Total bilirubin 2.1. - patient's troponin was 93.5 then went down to 79.0 therefore negative delta. - BNP 259 - otherwise all other labs are within normal limits. - UA within normal limits no evidence of UTI. - COVID/RSV/flu negative. - EKG was normal sinus rhythm no acute ischemic changes are noted. - therefore I called the son back and the and the son is now at bedside with case management for possible placement to LTC vs discharging - although the patient just recently got health insurance in [place], does not have a primary care as of yet although has an appointment with PCP Jaycee Macdonald on January 13. They also have a social security appointment on Sunday of this week. - the son and are concerned due to there are having to bring the patient up and down 1 flight of stairs multiple times a day due to her bedroom and bathroom are upstairs. - although Family is hesitant for placing the patient in long-term care due to physical therapy decided that she would not benefit from short-term rehab. - although at the end of the meeting patient's son/family decided that they will take her home I gave them a prescription for a wheelchair, Ativan, Flexeril and Tylenol and he will try to take care of her at home until the patient can be seen by her PCP Monika Macdonald and then they can have more services at that time. Therefore will be discharged at this time. MDM - Back Pain/Injury MDM Narrative Medical decision making narrative: 9:10am 75-year-old presenting with her son both for [place]ayan-speaking patient recently moved from [place] to permanently reside with her son who permanently resides here approximately 2 weeks ago at baseline per son presenting to the ED with complaints of atraumatic right shoulder/upper arm/lower arm/hand and wrist pain and right lower back pain/hip/gluteal pain for the past few days worse today. - on exam patient is alert at baseline for mentation per son. Has left-sided residual weakness at baseline per son and patient. Vital signs are stable within normal limits. No additional/New focal neuro deficits are noted. Patient is not in any acute distress. Patient has limited range of motion to right shoulder/arm although no obvious signs of trauma, no pitting edema to right upper extremity and no laxity or signs of infection. Patient with mild tenderness to palpation to right paraspinous lumbar musculature and right hip and gluteal pain. No signs of infection no rashes noted. Abdomen is soft and nontender. No CVA tenderness noted bilaterally. Patient does not have any lower extremity edema or calf tenderness noted. - Plan: Labs, CT scan of abd/pelvis, x-ray of right shoulder/right elbow/right hand and wrist. Provide 975 mg of Tylenol and 5 mg of Flexeril. If all is negative Obtain a case management possible PT consult and re-evaluate. Medical Records Attestation: I reviewed the patient's medical records. Lab Data Attestation: I reviewed the patient's lab results. Result diagrams: 12/29/20 10:55 12/29/20 10:54 Labs: Lab Results 12/29/20 12/29/20 12/29/20 Range/Units 10:52 10:52 10:54 WBC (4.8-10.8) X10*3/uL RBC (4.20-5.50) X10*6/uL Hgb (12.0-16.0) g/dl Hct (37-47) % MCV (80-98) fL MCH (27.0-33.0) pg MCHC (31.0-35.0) g/dl RDW (11.0-16.0) % Plt Count (160-400) X10*3/uL MPV (9.4-12.3) fL Immature Gran % (Auto) (0.0-0.4) % Neut % (Auto) (45-73) % Lymph % (Auto) (20-40) % Bladen % (Auto) (2-11) % Eos % (Auto) (0-4) % Baso % (Auto) (0-2) % Lymph # (Auto) (1.2-4.9) X10*3/uL Bladen # (Auto) (0.1-1.2) X10*3/uL Eos # (Auto) (0.0-0.4) X10*3/uL Baso # (Auto) (0.0-0.2) X10*3/uL Abs Immat Gran (auto) (0.00-0.03) X10*3/uL Absolute Neuts (auto) (2.0-8.3) X10*3/uL Absolute Nucleated RBC (0.0-0.012) X10*3/uL Nucleated RBC % (auto) (0.0-0.2) /100WBC PT (10.8-13.0) SEC INR (0.9-1.1) Sodium (135-145) mmol/L Potassium (3.3-5.1) mmol/L Chloride (96-108) mmol/L Carbon Dioxide (22-29) mmol/L Anion Gap (12-20) BUN (9-16) mg/dL Creatinine (0.5-1.4) mg/dL Estim Creat Clear Calc Estimated GFR Random Glucose (60-115) mg/dL Calcium (8.4-10.2) mg/dL Magnesium 2.0 (1.6-2.6) mg/dL Total Bilirubin (0.0-1.0) mg/dL AST (5-31) U/L ALT (0-31) U/L Alkaline Phosphatase (39-117) U/L Troponin I High Sens (<3.5-17.0) ng/L B-Natriuretic Peptide (<100) pg/mL Total Protein (6.5-8.0) g/dL Albumin (3.5-5.0) g/dL Lipase (8-78) U/L Urine Color YELLOW Urine Appearance CLEAR Urine pH 6.5 (5.0-8.0) Ur Specific Eugene 1.020 (1.005-1.025) Urine Protein NEG (NEG-TRACE) MG/DL Urine Glucose (UA) NEG (NEG) MG/DL Urine Ketones NEG (NEG) MG/DL Urine Blood NEG (NEG) Urine Nitrite NEG (NEG) Ur Leukocyte Esterase NEG (NEG) Coronavirus (PCR) NEGATIVE (Negative) Influenza Type A (PCR) NEGATIVE (Negative) Influenza Type B (PCR) NEGATIVE (Negative) RSV RNA Qual (PCR) NEGATIVE (Negative) 12/29/20 12/29/20 12/29/20 Range/Units 10:54 10:55 10:55 WBC 11.0 H (4.8-10.8) X10*3/uL RBC 5.50 (4.20-5.50) X10*6/uL Hgb 14.5 (12.0-16.0) g/dl Hct 45.9 (37-47) % MCV 83.5 (80-98) fL MCH 26.4 L (27.0-33.0) pg MCHC 31.6 (31.0-35.0) g/dl RDW 15.8 (11.0-16.0) % Plt Count 641 H (160-400) X10*3/uL MPV 9.8 (9.4-12.3) fL Immature Gran % (Auto) 0.4 (0.0-0.4) % Neut % (Auto) 81.8 H (45-73) % Lymph % (Auto) 9.1 L (20-40) % Bladen % (Auto) 7.8 (2-11) % Eos % (Auto) 0.5 (0-4) % Baso % (Auto) 0.4 (0-2) % Lymph # (Auto) 1.0 L (1.2-4.9) X10*3/uL Bladen # (Auto) 0.9 (0.1-1.2) X10*3/uL Eos # (Auto) 0.1 (0.0-0.4) X10*3/uL Baso # (Auto) 0.0 (0.0-0.2) X10*3/uL Abs Immat Gran (auto) 0.04 H (0.00-0.03) X10*3/uL Absolute Neuts (auto) 9.0 H (2.0-8.3) X10*3/uL Absolute Nucleated RBC 0.000 (0.0-0.012) X10*3/uL Nucleated RBC % (auto) 0.0 (0.0-0.2) /100WBC PT 13.6 H (10.8-13.0) SEC INR 1.1 (0.9-1.1) Sodium 141 (135-145) mmol/L Potassium 4.2 (3.3-5.1) mmol/L Chloride 105 (96-108) mmol/L Carbon Dioxide 26 (22-29) mmol/L Anion Gap 14 (12-20) BUN 17 H (9-16) mg/dL Creatinine 1.15 (0.5-1.4) mg/dL Estim Creat Clear Calc 36.6 Estimated GFR 46 Random Glucose 131 H D (60-115) mg/dL Calcium 9.5 (8.4-10.2) mg/dL Magnesium (1.6-2.6) mg/dL Total Bilirubin 2.1 H (0.0-1.0) mg/dL AST 17 (5-31) U/L ALT 18 (0-31) U/L Alkaline Phosphatase 67 (39-117) U/L Troponin I High Sens (<3.5-17.0) ng/L B-Natriuretic Peptide (<100) pg/mL Total Protein 7.1 (6.5-8.0) g/dL Albumin 4.0 (3.5-5.0) g/dL Lipase 36 (8-78) U/L Urine Color Urine Appearance Urine pH (5.0-8.0) Ur Specific Eugene (1.005-1.025) Urine Protein (NEG-TRACE) MG/DL Urine Glucose (UA) (NEG) MG/DL Urine Ketones (NEG) MG/DL Urine Blood (NEG) Urine Nitrite (NEG) Ur Leukocyte Esterase (NEG) Coronavirus (PCR) (Negative) Influenza Type A (PCR) (Negative) Influenza Type B (PCR) (Negative) RSV RNA Qual (PCR) (Negative) 12/29/20 12/29/20 Range/Units 10:55 13:56 WBC (4.8-10.8) X10*3/uL RBC (4.20-5.50) X10*6/uL Hgb (12.0-16.0) g/dl Hct (37-47) % MCV (80-98) fL MCH (27.0-33.0) pg MCHC (31.0-35.0) g/dl RDW (11.0-16.0) % Plt Count (160-400) X10*3/uL MPV (9.4-12.3) fL Immature Gran % (Auto) (0.0-0.4) % Neut % (Auto) (45-73) % Lymph % (Auto) (20-40) % Bladen % (Auto) (2-11) % Eos % (Auto) (0-4) % Baso % (Auto) (0-2) % Lymph # (Auto) (1.2-4.9) X10*3/uL Bladen # (Auto) (0.1-1.2) X10*3/uL Eos # (Auto) (0.0-0.4) X10*3/uL Baso # (Auto) (0.0-0.2) X10*3/uL Abs Immat Gran (auto) (0.00-0.03) X10*3/uL Absolute Neuts (auto) (2.0-8.3) X10*3/uL Absolute Nucleated RBC (0.0-0.012) X10*3/uL Nucleated RBC % (auto) (0.0-0.2) /100WBC PT (10.8-13.0) SEC INR (0.9-1.1) Sodium (135-145) mmol/L Potassium (3.3-5.1) mmol/L Chloride (96-108) mmol/L Carbon Dioxide (22-29) mmol/L Anion Gap (12-20) BUN (9-16) mg/dL Creatinine (0.5-1.4) mg/dL Estim Creat Clear Calc Estimated GFR Random Glucose (60-115) mg/dL Calcium (8.4-10.2) mg/dL Magnesium (1.6-2.6) mg/dL Total Bilirubin (0.0-1.0) mg/dL AST (5-31) U/L ALT (0-31) U/L Alkaline Phosphatase (39-117) U/L Troponin I High Sens 93.5 H 79.0 H (<3.5-17.0) ng/L B-Natriuretic Peptide 259 H (<100) pg/mL Total Protein (6.5-8.0) g/dL Albumin (3.5-5.0) g/dL Lipase (8-78) U/L Urine Color Urine Appearance Urine pH (5.0-8.0) Ur Specific Eugene (1.005-1.025) Urine Protein (NEG-TRACE) MG/DL Urine Glucose (UA) (NEG) MG/DL Urine Ketones (NEG) MG/DL Urine Blood (NEG) Urine Nitrite (NEG) Ur Leukocyte Esterase (NEG) Coronavirus (PCR) (Negative) Influenza Type A (PCR) (Negative) Influenza Type B (PCR) (Negative) RSV RNA Qual (PCR) (Negative) Imaging Data Chest x-ray/right shoulder/right elbow/right hand and wrist: Attestation: I personally reviewed and interpreted this imaging study as follows: Radiologist's impression: XR/XR chest 2V IMPRESSION: Calcific tendinitis of the right shoulder. No acute parenchymal disease within the chest. Small right elbow effusion with mediolateral epicondylitis. Occult fracture not excluded. Osteochondroma distal radius. No evidence of acute fracture or dislocation of the right hand and wrist but question possible infiltrative processes within the second and fifth metacarpals. CT scan of abd/pelvis without contrast: Attestation: I personally reviewed and interpreted this imaging study as follows: Radiologist's impression: FINDINGS: PA and lateral views of the chest do not demonstrate any evidence of acute parenchymal disease, pneumothorax, or pleural effusion. Heart normal size. No evidence of pulmonary edema. Multilevel degenerative disc disease is seen within the thoracic spine. 2 views of the right shoulder demonstrate calcific tendinitis. No acute fracture or dislocation is evident. There appears be osteopenia of visualized bones. Views of the right elbow do not demonstrate any evidence of acute fracture or dislocation. There appears to be medial and lateral epicondylitis. A small effusion is evident. Clinical correlation with recent acute trauma is recommended. Mild spurring is present. An osteochondroma is seen about the proximal radius. Views of the right hand and wrist do not demonstrate any evidence of acute fracture or dislocation. There is some degenerative change involving the distal radius. There is some mild degenerative spurring seen about the first carpal metacarpal joint. There is a region of mildly increased density with some cortical irregularity involving the shaft of the fifth metacarpal and a metastatic lesion cannot be excluded. There is also a region of some density about the distal diaphysis of the second metacarpal which may be related to osteopenia or possible infiltrative process. There appears to be some mild cortical irregularity in this region along the radial aspect. The fingers are held in flexion making evaluation of the fingers difficult. XR/XR elbow RT min 3V IMPRESSION: Calcific tendinitis of the right shoulder. No acute parenchymal disease within the chest. Small right elbow effusion with mediolateral epicondylitis. Occult fracture not excluded. Osteochondroma distal radius. No evidence of acute fracture or dislocation of the right hand and wrist but question possible infiltrative processes within the second and fifth metacarpals. ECG Data Attestation: I personally reviewed and interpreted this ECG as follows: ECG interpretation date: 12/29/20 ECG interpretation time: 09:18 Interpretation: Normal sinus rhythm with ventricular rate of 66 with left axis deviation minimal voltage criteria for LVH may be normal variant otherwise no acute ischemic changes are noted. Similar when compared to prior EKG on 12/20/2020 Critical Care Time Critical Care Time Critical Care Time: Yes Total Critical Care Time: 60 Attestation: I personally attest to this time spent taking care of the patient Discharge Plan Discharge Clinical Impression: Calcifying tendinitis of shoulder, Effusion of right elbow, Osteochondroma of right radius Patient Disposition: Home, Self-Care Instructions: Calcific Tendinitis (ED), Benign Bone Tumor (DC) Prescriptions: New (DME) wheelchair See Rx Instructions .Route .MEDSUPPLY Qty: 1 RF: 0 lorazepam [Ativan] 0.5 mg tablet 0.5 mg PO BEDTIME PRN (Reason: insomnia) Qty: 20 RF: 0 cyclobenzaprine 10 mg tablet 10 mg PO Q8H Qty: 10 RF: 0 acetaminophen [Tylenol Extra Strength] 500 mg tablet 1,000 mg PO QID PRN (Reason: fever or pain) Qty: 14 RF: 0 No Action cyclobenzaprine 10 mg tablet 10 mg PO Q8H Qty: 10 RF: 0 acetaminophen-codeine 300-30 mg tablet 1 tab PO Q8H PRN (Reason: pain) Qty: 10 RF: 0 Referrals: Jaycee Peters MD [Physician] - 1 day (Patient is to be seen as soon as possible) Print Language: Paraguayan
[2020-12-29] MEDS: 0.9 % Sodium Chloride 1,000 ML 999 ML IVCONT (10:59)
[2020-12-29 11:04] LABS: MANUAL DIFF FLAG NO
[2020-12-29 11:06] LABS: Basophils Percent Auto 0.4 % (0-2); Eosinophils Absolute Auto 0.1 X10*3/uL (0.0-0.4); Eosinophils Percent Auto 0.5 % (0-4); Hematocrit 45.9 % (37-47); Hemoglobin 14.5 g/dl (12.0-16.0); Imm Gran Abs Auto 0.04 X10*3/uL (0.00-0.03); Imm Gran Pct Auto 0.4 % (0.0-0.4); Lymphocytes Percent Auto 9.1 % (20-40); Mean Corpuscular HGB Conc 31.6 g/dl (31.0-35.0); Mean Corpuscular Hemoglobin 26.4 pg (27.0-33.0); Mean Corpuscular Volume 83.5 fL (80-98); Mean Platelet Volume 9.8 fL (9.4-12.3); Monocytes Absolute Auto 0.9 X10*3/uL (0.1-1.2); Monocytes Percent Auto 7.8 % (2-11); Neutrophils Percent Auto 81.8 % (45-73); Platelet Count 641 X10*3/uL (160-400); Red Cell Distribution Width 15.8 % (11.0-16.0)
[2020-12-29 11:09] LABS: Glucose Urine UA NEG (NEG); Leukocyte Esterase Urine NEG (NEG); Nitrite Urine NEG (NEG); PH 6.5 (5.0-8.0); Urine Blood NEG (NEG); Urine Ketones NEG (NEG); Urine Protein NEG (NEG-TRACE)
[2020-12-29 11:10] LABS: Appearance Urine CLEAR; Color Urine YELLOW
[2020-12-29 11:12] LABS: INTERNATIONAL NORM RATIO 1.1 (0.9-1.1); Prothrombin Time 13.6 SEC (10.8-13.0)
[2020-12-29 11:33] LABS: Alanine Aminotransferase 18 U/L (0-31); Alkaline Phosphatase 67 U/L (39-117); Anion Gap 14 (12-20); Aspartate Amino Transferase 17 U/L (5-31); Bilirubin Total 2.1 mg/dL (0.0-1.0); Blood Urea Nitrogen 17 mg/dL (9-16); Calcium 9.5 mg/dL (8.4-10.2); Carbon Dioxide 26 mmol/L (22-29); Chloride 105 mmol/L (96-108); Creatinine Clr Calc Pharmacy 36.6; Estimated Glomerular Filt Rate 46; Glucose Random 131 mg/dL (60-115); Lipase 36 U/L (8-78); Potassium 4.2 mmol/L (3.3-5.1); Sodium 141 mmol/L (135-145); Total Protein 7.1 g/dL (6.5-8.0)
[2020-12-29] MEDS: Acetaminophen 325 MG TABLET 975 MG PO (11:35)
[2020-12-29] MEDS: Cyclobenzaprine HCl 5 MG TABLET PO (11:35)
[2020-12-29 11:43] LABS: Troponin-I High Sensitivity 93.5 ng/L (<3.5-17.0)
[2020-12-29 11:44] LABS: Influenza A PCR NEGATIVE (Negative); Influenza B PCR NEGATIVE (Negative); Resp Syncy Virus RNA Qual PCR NEGATIVE (Negative); SARS COV2 PCR INHOUSE NEGATIVE (Negative)
[2020-12-29 11:57] LABS: B Type Natriuretic Peptide 259 pg/mL (<100)
[2020-12-29] MEDS: LORazepam 2 MG/ML VIAL 1 MG IVPUSH (13:41)
--- NOTE | 2020-12-29 17:11 | MHC.CM.ED ---
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 Pt has Alzheimer's dementia and is not participating in conversation. Son brought pt here from [place] 3 weeks ago. No HCP on file and I do not believe pt can understand to make one. Karol MELENDEZ had long conversation with son and tells CM that he is interested in home services. PT met with pt and recommend LTC, as pt was unable to participate in the evaluation. Son does not want patient to go to LTC now. That is the retirement goal, but son needs to bring pt to Social Security appointment on Sunday. Son tells CM that he, his and daughter are able to care for her at home now. CM unable to arrange home services, as pt does not have a PCP. Has first PCP appointment on January 13 with Jaycee Macdonald at [facility]. Son understands that he can always return his mother to the ED if they cannot care for her. Son understands that the PCP can make referrals for home care if they want to keep her home. Pt has no equipment at home and used none in [place]. Pt has Left sided weakness from a stroke and cannot use a walker, but a wheelchair would be helpful. Script provided by Karol MELENDEZ. S transportation referral booked. CM will continue to follow for d/c needs.
--- NOTE | 2020-12-29 19:14 | PC.NURSE ---
Report received. PT is resting in bed. No complaints at this time. Ready for discharge, waiting for her son to pick her up.
--- NOTE | 2020-12-29 20:40 | PC.NURSE ---
PT D/C W/[facility] FOR TX HOME. PT WAS BROUGHT BACK IN BY EMS AND RECHECKED INTO THE ED BY PARAMEDICS, WHOM DID NOT LEAVE THE HOSPITAL GROUNDS AND THEN STATED THEY HAD SERIOUS CONCERNS RE: PT R/T HOME. EMS STATES IT WOULD BE ELDER ABUSE TO BRING PT HOME D/T HER CC BEING WEAKNESS UPON ARRIVAL IN THE ED. CM HAD BEEN IN CONTACT MULTIPLE TIMES W/PT FAMILY WHO STATED THEY DID NOT WANT PT GOING TO LTC, AND FELT THEY COULD SAFELY CARE FOR PT AT HOME. AMIE FROM CM AGAIN CALLED FAMILY AGAIN TO CHECK IF FAMILY WAS COMFORTABLE W/THIS PATIENT RETURNING HOME VIA EMS. CM, CHARGE NURSE BOTH SPOKE W/EMS RE: PT SAFE TO RETURN HOME
--- NOTE | 2020-12-29 21:03 | MHC.CM.ED ---
Son tells CM that they will move mother to second floor, where the bathroom is, so they can better care for her. Ambulance arrived at 2044 to transport pt home. EMT concerned that pt came to ED because family could not care for her, so they do not want to transport her home. EMT stated they would just have to return her when the family cannot care for her. CM called son, Rodri, and apologized for the delay. Son tells CM they are all set for his mother at home and are waiting for her. CM explained to EMT that family is not yet ready to place pt in LTC, she does not have a PCP, so home services cannot be arranged and that there are 3 people available to care for this pt. CM also explained that pt son is home and is expecting her. EMT is agreeable to bringing pt home.
== END 2020-12-29 20:36 | disposition home or self-care (01) ==
PROVIDERS: Physician Assistant Medical; Emergency Provider Emergency Medicine
DX: M75.31 Calcific tendinitis of right shoulder (principal); M25.421 Effusion, right elbow; M77.01 Medial epicondylitis, right elbow; D16.9 Benign neoplasm of bone and articular cartilage, unspecified; M25.511 Pain in right shoulder; I10 Essential (primary) hypertension; E78.5 Hyperlipidemia, unspecified; C50.919 Malignant neoplasm of unspecified site of unspecified female breast; G30.9 Alzheimer's disease, unspecified; F02.80 Dementia in other diseases classified elsewhere, unspecified severity, without behavioral disturbance, psychotic disturbance, mood disturbance, and anxiety; I69.354 Hemiplegia and hemiparesis following cerebral infarction affecting left non-dominant side; Z79.82 Long term (current) use of aspirin; Z20.822 Contact with and (suspected) exposure to COVID-19
CPT/HCPCS: 0241U; 36415; 71046; 73030; 73080; 73110; 73130; 74176; 80053; 81003; 83690; 83735; 83880; 84484; 85025; 85610; 93005; 96361; 96374; 97162; 99284; 99291; J2060

== ENCOUNTER → 2021-01-13 08:40 | Outpatient (BNVA) | payer MEDICARE, MEDICAID, SELFPAY | PROVIDERS: PCP Internal Medicine; Referring Provider Internal Medicine; Visit Provider Surgery | DX: K43.9 Ventral hernia without obstruction or gangrene (principal) | CPT/HCPCS: 99202 ==

== ENCOUNTER 2021-01-14 18:51 | Emergency (ER) | payer MEDICARE, MEDICAID, SELFPAY ==
--- NOTE | ~2021-01-14 | CT_ITS ---
EXAMINATION: CT ABDOMEN AND PELVIS WITHOUT CONTRAST CLINICAL INFORMATION: Abdominal pain COMPARISON: Previous CT of the abdomen and pelvis December 2020 TECHNIQUE: Multidetector volumetric imaging was performed from the superior aspect of the liver through the pubic symphysis. Sagittal and coronal reformatted images were obtained on the technologist's workstation. This CT examination was performed using dose optimization techniques as appropriate, variously including the following: *Automated exposure control *Adjustment of mA and/or kV according to patient size (this includes techniques or standardized protocols for targeted exams where dose is matched to indication/reason for exam; i.e. extremities or head) *Use of iterative reconstruction technique DLP: 1049 mGy-cm FINDINGS: LUNG BASES: The lung bases are clear. The heart is slightly enlarged. LIVER, GALLBLADDER, AND BILIARY TREE: There is a small 7 mm low-attenuation lesion in the left lobe of the liver that is stable and probably represents a small cyst. The liver is otherwise unremarkable. The gallbladder is unremarkable. There is no biliary duct dilatation. The gallbladder is unremarkable with no evidence of radiopaque gallstones, gallbladder wall thickening, or obvious pericholecystic inflammatory changes. PANCREAS: Unremarkable. SPLEEN: Spleen is upper normal in size measuring 13 cm in length. ADRENAL GLANDS: Unremarkable. KIDNEYS AND URETERS: There is a small 1 to 2 mm stone in the lower pole the right kidney. Kidneys are otherwise unremarkable. BLADDER: Unremarkable. GASTROINTESTINAL TRACT: The small and large bowel are unremarkable. The appendix is unremarkable. ABDOMINAL WALL: There is a small umbilical hernia containing fat. There is a larger lower umbilical hernia containing small bowel. There is no evidence of obstruction. LYMPH NODES: Normal. VASCULAR: Unremarkable. PELVIC VISCERA: Unremarkable. OSSEOUS STRUCTURES: There are degenerative changes of the spine. There is mild anterior subluxation of L5 with respect to S1 that appears unchanged. CT/CT abdomen pelvis wo con IMPRESSION: Small right renal stone. Lower abdominal wall umbilical hernia containing fat. No evidence of obstruction.
[2021-01-14 18:59] VITALS: BP 158/83; PULSE 94; RESP 16; TEMP 37.1; O2SAT 99; BMI 24.9
--- NOTE | 2021-01-14 19:38 | ECG_ITS ---
Test Reason : WEAKNESS Blood Pressure : / mmHG Vent. Rate : 087 BPM Atrial Rate : 087 BPM P-R Int : 136 ms QRS Dur : 076 ms QT Int : 366 ms P-R-T Axes : 014 -45 017 degrees QTc Int : 440 ms Normal sinus rhythm Moderate voltage criteria for LVH, may be normal variant Abnormal ECG When compared with ECG of 29-DEC-2020 09:18, No significant change was found Referred By: Clementina West Electronically Signed By:CARLOS MATT
--- NOTE | 2021-01-14 19:41 | ED_ITS ---
HPI - General Adult General Chief complaint: Abdominal Pain Stated complaint: abd pain, ?constipation Time Seen by Provider: 01/14/21 19:14 Source: patient and family (Son) Mode of arrival: EMS Limitations: no limitations History of Present Illness HPI narrative: Patient is brought to the emergency room by her son. Prior to arrival, patient told her son that she had abdominal pain. By the time EMS arrived, the patient stated that she did not have any pain. The son states that his mother recently moved from [place]. Since her arrival, the son states that the mother has been complaining of intermittent abdominal pain, however when they get help from her, the patient states that she no longer has abdominal pain. Patient was seen yesterday in the office by Dr. Gudino from surgery, a CT scan is pending insurance approval. The son is not sure if the patient is actually having abdominal pain or if this is behavioral. The son states that they are having a hard time taking care of the patient at home. At this time, patient denies abdominal pain Related Data Home Medications Medication Instructions Recorded Confirmed anastrozole 1 mg tablet 1 mg PO DAILY 01/03/21 01/14/21 furosemide 20 mg tablet 20 mg PO DAILY 01/03/21 01/14/21 hydroxyzine pamoate 50 mg capsule 50 mg PO ONCE cap 01/03/21 01/14/21 lisinopril 40 mg tablet 40 mg PO DAILY 01/03/21 01/14/21 memantine 28 mg capsule 28 mg PO DAILY 01/03/21 01/14/21 sprinkle,extended release 24hr metoprolol tartrate 50 mg tablet 50 mg PO BID 01/03/21 01/14/21 amlodipine 5 mg PO DAILY 01/14/21 01/14/21 aspirin 81 mg PO DAILY 01/14/21 01/14/21 Previous Rx's Medication Instructions Recorded acetaminophen [Tylenol Extra 1,000 mg PO QID PRN #14 tab 12/29/20 Strength] quetiapine 50 mg tablet 50 mg PO BEDTIME 90 Days #90 tab 01/10/21 Allergies Allergy/AdvReac Type Severity Reaction Status Date / Time No Known Allergies Allergy Verified 01/14/21 19:15 Review of Systems Review of Systems: Constitutional : No Weight loss, No Fever, No Chills, No Night Sweats, No Fatigue, No Malaise ENT/Mouth : No Hearing loss, No Ear Pain, No Nasal Congestion, No Sinus Pain, No Hoarseness, No sore throat, No Rhinorrhea, No Swallowing Difficulty Eyes: No Eye Pain, No Swelling, No Redness, No Foreign Body, No Discharge, No Vision Changes Cardiovascular : No Chest Pain, No SOB, No Dyspnea on Exertion, No Orthopnea, No Edema, No Palpitations Respiratory : No Cough, No Sputum, No Wheezing, No Smoke Exposure, No Dyspnea Gastrointestinal : No Nausea, No Vomiting, No Diarrhea, unclear when patient had her last bowel movement, complaining of lower abdominal pain intermittently, none at this time, No Hematochezia, No Melena Genitourinary : no irregular bleeding, No Dysuria, No Urinary Frequency, No Hematuria, No Urinary Incontinence, No Urgency, No Flank Pain, No Urinary Flow Changes, No Hesitancy Musculoskeletal : Worsening generalized weakness, No Myalgias, No Joint Swelling Skin : No Skin Lesions, No rash Neuro : No Weakness, No Numbness, No Paresthesias, No Loss of Consciousness, No Dizziness, No Headache Psych : No Anxiety/Panic, No Depression, No SI/HI/AH/VH, No Social Issues, Heme/Lymph: No Bruising, No Bleeding,No Lymphadenopathy Endocrine : No Polyuria, No Polydipsia, No Temperature Intolerance [facility] Past Medical History Medical History Right hemiplegia Ventral hernia Family History Family History Father No problems noted. Mother No problems noted. Social History Social History Alcohol intake: never Smoking Status: Never smoker Advance Directives: No Advance Directives Information Provided: Yes Physical Exam Vital Signs: Vital Signs: Last Vital Signs Temp 98.7 F 01/14/21 20:38 Pulse 105 H 01/14/21 22:41 Resp 20 01/14/21 22:41 BP 174/85 H 01/14/21 22:41 Pulse Ox 97 01/14/21 22:41 Body Mass Index 24.9 Appearance: Alert. Oriented X2. No acute distress. Eyes: Pupils equal, round and reactive to light. ENT: Pharynx normal. Neck: Normal inspection. Neck supple. No lymph nodes noted. No crepitus CVS: Normal heart rate and rhythm. Pulses normal. Normal S1 and S2 Respiratory: No respiratory distress. Breath sounds normal. No Wheezing. No rales Abdomen: Soft and nontender. No rigidity. No distention. Skin: Skin warm and dry. Normal skin color. Normal skin turgor. Extremities: No lower extremity edema. No lower extremity edema. No Lacerations. No Rash Neuro: Cranial nerves 2-12 grossly intact No motor deficit. No sensory deficit. Moving all extermities. No slurred speech. Course Course Course Narrative: I discussed the results with the patient, no acute findings. Patient has a ventral hernia containing only fat. At this time patient has no abdominal pain. Patient will be evaluated by Case Management and Physical therapy in the morning, seems that the family is having hard time taking care of her. Sign-out given to Dr. Choudhary Medical Decision Making Lab Data Result diagrams: 01/14/21 19:59 01/14/21 19:59 Labs: Lab Results 01/14/21 01/14/21 01/14/21 Range/Units 19:59 19:59 20:34 WBC 10.3 (4.8-10.8) X10*3/uL RBC 5.35 (4.20-5.50) X10*6/uL Hgb 14.2 (12.0-16.0) g/dl Hct 44.3 (37-47) % MCV 82.8 (80-98) fL MCH 26.5 L (27.0-33.0) pg MCHC 32.1 (31.0-35.0) g/dl RDW 15.2 (11.0-16.0) % Plt Count 651 H (160-400) X10*3/uL MPV 9.9 (9.4-12.3) fL Immature Gran % (Auto) 0.3 (0.0-0.4) % Neut % (Auto) 80.6 H (45-73) % Lymph % (Auto) 9.1 L (20-40) % [place] % (Auto) 8.1 (2-11) % Eos % (Auto) 1.4 (0-4) % Baso % (Auto) 0.5 (0-2) % Lymph # (Auto) 0.9 L (1.2-4.9) X10*3/uL [place] # (Auto) 0.8 (0.1-1.2) X10*3/uL Eos # (Auto) 0.1 (0.0-0.4) X10*3/uL Baso # (Auto) 0.1 (0.0-0.2) X10*3/uL Abs Immat Gran (auto) 0.03 (0.00-0.03) X10*3/uL Absolute Neuts (auto) 8.3 (2.0-8.3) X10*3/uL Absolute Nucleated RBC 0.000 (0.0-0.012) X10*3/uL Nucleated RBC % (auto) 0.0 (0.0-0.2) /100WBC Sodium 144 (135-145) mmol/L Potassium 4.4 (3.3-5.1) mmol/L Chloride 108 (96-108) mmol/L Carbon Dioxide 27 (22-29) mmol/L Anion Gap 13 (12-20) BUN 34 H D (9-16) mg/dL Creatinine 1.45 H (0.5-1.4) mg/dL Estim Creat Clear Calc 31.4 Estimated GFR 35 Random Glucose 153 H (60-115) mg/dL Calcium 9.2 (8.4-10.2) mg/dL Total Bilirubin 0.8 (0.0-1.0) mg/dL Direct Bilirubin 0.3 (0.0-0.5) mg/dL AST 24 D (5-31) U/L ALT 21 (0-31) U/L Alkaline Phosphatase 75 (39-117) U/L Total Protein 6.9 (6.5-8.0) g/dL Albumin 3.8 (3.5-5.0) g/dL Urine Color YELLOW Urine Appearance CLEAR Urine pH 5.5 (5.0-8.0) Ur Specific [place] 1.020 (1.005-1.025) Urine Protein NEG (NEG-TRACE) MG/DL Urine Glucose (UA) NEG (NEG) MG/DL Urine Ketones NEG (NEG) MG/DL Urine Blood NEG (NEG) Urine Nitrite NEG (NEG) Ur Leukocyte Esterase NEG (NEG) Imaging Data CT scan - abdomen: Radiologist's impression: FINDINGS: LUNG BASES: The lung bases are clear. The heart is slightly enlarged. LIVER, GALLBLADDER, AND BILIARY TREE: There is a small 7 mm low-attenuation lesion in the left lobe of the liver that is stable and probably represents a small cyst. The liver is otherwise unremarkable. The gallbladder is unremarkable. There is no biliary duct dilatation. The gallbladder is unremarkable with no evidence of radiopaque gallstones, gallbladder wall thickening, or obvious pericholecystic inflammatory changes. PANCREAS: Unremarkable. SPLEEN: Spleen is upper normal in size measuring 13 cm in length. ADRENAL GLANDS: Unremarkable. KIDNEYS AND URETERS: There is a small 1 to 2 mm stone in the lower pole the right kidney. Kidneys are otherwise unremarkable. BLADDER: Unremarkable. GASTROINTESTINAL TRACT: The small and large bowel are unremarkable. The appendix is unremarkable. ABDOMINAL WALL: There is a small umbilical hernia containing fat. There is a larger lower umbilical hernia containing small bowel. There is no evidence of obstruction. LYMPH NODES: Normal. VASCULAR: Unremarkable. PELVIC VISCERA: Unremarkable. OSSEOUS STRUCTURES: There are degenerative changes of the spine. There is mild anterior subluxation of L5 with respect to S1 that appears unchanged. CT/CT abdomen pelvis wo con IMPRESSION: Small right renal stone. Lower abdominal wall umbilical hernia containing fat. No evidence of obstruction. ECG Data Attestation: I personally reviewed and interpreted this ECG as follows: (Sinus rhythm, heart rate 87, no ST segment depression or elevation, no T-wave inversion. QTC 440) Discharge Plan Discharge Clinical Impression: Abdominal pain, KELSY (acute kidney injury) Prescriptions: No [facility] quetiapine 50 mg tablet 50 mg PO BEDTIME 90 Days Qty: 90 RF: 1 acetaminophen [Tylenol Extra Strength] 500 mg tablet 1,000 mg PO QID PRN (Reason: fever or pain) Qty: 14 RF: 0 amlodipine 5 mg Tablet 5 mg PO DAILY RF: 0 aspirin 81 mg Tablet 81 mg PO DAILY RF: 0 memantine 28 mg capsule,sprinkle,ER 24hr 28 mg PO DAILY RF: 0 furosemide 20 mg tablet 20 mg PO DAILY RF: 0 anastrozole 1 mg tablet 1 mg PO DAILY RF: 0 lisinopril 40 mg tablet 40 mg PO DAILY RF: 0 metoprolol tartrate 50 mg tablet 50 mg PO BID RF: 0 hydroxyzine pamoate 50 mg capsule 50 mg PO ONCE RF: 0
--- NOTE | 2021-01-14 20:05 | PC.NURSE ---
Labs and EKG obtained. Plan for straight cath.
[2021-01-14 20:07] LABS: Basophils Absolute Auto 0.1 X10*3/uL (0.0-0.2); Basophils Percent Auto 0.5 % (0-2); Eosinophils Absolute Auto 0.1 X10*3/uL (0.0-0.4); Eosinophils Percent Auto 1.4 % (0-4); Hematocrit 44.3 % (37-47); Hemoglobin 14.2 g/dl (12.0-16.0); Imm Gran Abs Auto 0.03 X10*3/uL (0.00-0.03); Imm Gran Pct Auto 0.3 % (0.0-0.4); Lymphocytes Absolute Auto 0.9 X10*3/uL (1.2-4.9); Lymphocytes Percent Auto 9.1 % (20-40); MANUAL DIFF FLAG NO; Mean Corpuscular HGB Conc 32.1 g/dl (31.0-35.0); Mean Corpuscular Hemoglobin 26.5 pg (27.0-33.0); Mean Corpuscular Volume 82.8 fL (80-98); Mean Platelet Volume 9.9 fL (9.4-12.3); Monocytes Absolute Auto 0.8 X10*3/uL (0.1-1.2); Monocytes Percent Auto 8.1 % (2-11); Neutrophils Absolute Auto 8.3 X10*3/uL (2.0-8.3); Neutrophils Percent Auto 80.6 % (45-73); Platelet Count 651 X10*3/uL (160-400); Red Blood Count 5.35 X10*6/uL (4.20-5.50); Red Cell Distribution Width 15.2 % (11.0-16.0); White Blood Count 10.3 X10*3/uL (4.8-10.8)
--- NOTE | 2021-01-14 20:36 | PC.NURSE ---
automotive engineering technician at bedside for straight cath and UA.
[2021-01-14 20:38] VITALS: BP 151/72; PULSE 93; RESP 20; TEMP 37.1; O2SAT 100
[2021-01-14 20:38] LABS: Alanine Aminotransferase 21 U/L (0-31); Albumin Level 3.8 g/dL (3.5-5.0); Alkaline Phosphatase 75 U/L (39-117); Anion Gap 13 (12-20); Aspartate Amino Transferase 24 U/L (5-31); Bilirubin Direct 0.3 mg/dL (0.0-0.5); Bilirubin Total 0.8 mg/dL (0.0-1.0); Blood Urea Nitrogen 34 mg/dL (9-16); Calcium 9.2 mg/dL (8.4-10.2); Carbon Dioxide 27 mmol/L (22-29); Chloride 108 mmol/L (96-108); Creatinine Clr Calc Pharmacy 31.4; Estimated Glomerular Filt Rate 35; Glucose Random 153 mg/dL (60-115); Potassium 4.4 mmol/L (3.3-5.1); Sodium 144 mmol/L (135-145); Total Protein 6.9 g/dL (6.5-8.0)
[2021-01-14 20:44] LABS: Glucose Urine UA NEG (NEG); Leukocyte Esterase Urine NEG (NEG); Nitrite Urine NEG (NEG); PH 5.5 (5.0-8.0); Urine Blood NEG (NEG); Urine Ketones NEG (NEG); Urine Protein NEG (NEG-TRACE)
[2021-01-14 20:45] LABS: Appearance Urine CLEAR; Color Urine YELLOW
--- NOTE | 2021-01-14 20:47 | PC.NURSE ---
Off to CT on hospital bed.
--- NOTE | 2021-01-14 20:58 | PC.NURSE ---
Med Rec completed at bedside with son and adjunct professor of voice.
[2021-01-14] MEDS: 0.9 % Sodium Chloride 1,000 ML 999 ML IVCONT (21:28)
--- NOTE | 2021-01-14 22:19 | PC.NURSE ---
MD at bedside discussing results and plan of care.
--- NOTE | 2021-01-14 22:29 | PC.NURSE ---
Can contact information: Rodri Matson [phone].
[2021-01-14 22:41] VITALS: BP 174/85; PULSE 105; RESP 20; O2SAT 97
[2021-01-14] MEDS: Metoprolol Tartrate 50 MG TABLET PO (22:41)
[2021-01-14] MEDS: QUEtiapine Fumarate 50 MG TABLET PO (22:42)
--- NOTE | 2021-01-14 22:49 | PC.NURSE ---
Pt medicated with PO medications. Pt having difficulty swallowing medications, pt repeatedly spitting them out. Pills crushed in pudding, pt swallowing pudding without difficulty. VSS. Pt repositioned in bed. Son at bedside.
--- NOTE | 2021-01-14 23:16 | PC.NURSE ---
CM at bedside discussing rehab/SNF placement with son and shelver.
--- NOTE | 2021-01-14 23:19 | MHC.CM.ED ---
CM met with pt with certified court interpreter. Spoke with son, Rodri Matson ([phone]). Pt lives with son. Pt did not participate in interview. Son answered all questions. Pt with HX L sided weakness s/p CVA. Has walker at home, but cannot use it. Pt has limited use of her left arm and very poor left leg control. PCP is Jaycee Drake at [facility]. Will have PT evaluation in am. Son agreeable to [facility]. Would like to stay local in [place] if possible. Son considering LTC at some point. No referrals placed, as pt has long standing hemiplegia. CM to follow for d/c needs.
[2021-01-15 01:00] VITALS: RESP 20
--- NOTE | 2021-01-15 03:04 | PC.NURSE ---
Pt heard crying in bed,requesting to use the bathroom. Pt is a heavy 2 assist to the commode, having difficulty following instructions. Pt voiding easily, provided with bertha care and a complete bed change, assisted back into bed into POC. Pt resting easily with son at bedside, VSS. Continue to monitor.
[2021-01-15 06:11] VITALS: BP 173/89; PULSE 87; RESP 20
[2021-01-15 06:13] VITALS: RESP 20
--- NOTE | 2021-01-15 08:06 | PC.NURSE ---
PT IN TO SEE PT. SON AT BEDSIDE. CALL [facility] IN PLACE
[2021-01-15 09:32] VITALS: BP 135/84; PULSE 88; RESP 14; O2SAT 95
[2021-01-15] MEDS: Furosemide 20 MG TABLET PO (10:05)
[2021-01-15] MEDS: amLODIPine Besylate 5 MG TABLET PO (10:05)
[2021-01-15] MEDS: lisinopriL 40 MG TABLET PO (10:05)
[2021-01-15] MEDS: Aspirin 81 MG TAB.CHEW PO (10:05)
[2021-01-15] MEDS: Metoprolol Tartrate 50 MG TABLET PO (10:06)
[2021-01-15] MEDS: Anastrozole 1 MG TABLET PO (10:06)
--- NOTE | 2021-01-15 11:04 | PC.NURSE ---
CM AT BEDSIDE, [facility].
[2021-01-15 11:19] VITALS: BP 152/86; PULSE 76; TEMP 37.1; O2SAT 98
[2021-01-15 12:15] LABS: COVID-19 Test Negative (Negative)
--- NOTE | 2021-01-15 13:05 | MHC.CM.ED ---
Patient remains in the ER. Physical therapy eval completed. residential care is recommended. Met with patient, son Rodri, and guest relations coordinator. Rodri would prefer patient stays in [place]. Referrals sent via [facility]. [facility] is able to offer a bed with a HCP and negative Covid. HCP completed with patient and guest relations coordinator. Covd is negative. Patient received 2nd Moderna vaccine on 11/20. Continue to monitor for d/c needs.
--- NOTE | 2021-01-15 13:18 | MHC.CM.ED ---
[facility] is willing to offer a bed. Patient can leave at 2pm. [facility] booked. Med nec with chart. Patient, Marina Milligan RN and Karol MELENDEZ aware. Continue to monitor for d/c needs.
--- NOTE | 2021-01-15 13:46 | PC.NURSE ---
REPORT GIVEN TO YEN PENALOZA
== END 2021-01-15 14:12 | disposition skilled nursing facility (03) ==
PROVIDERS: Emergency Medicine; Emergency Provider Emergency Medicine
DX: R10.9 Unspecified abdominal pain (principal); Z79.899 Other long term (current) drug therapy; Z20.822 Contact with and (suspected) exposure to COVID-19
CPT/HCPCS: 36415; 74176; 80048; 80076; 81003; 85025; 87635; 93005; 97162; 99285

== ENCOUNTER 2021-01-18 23:37 | Inpatient (IN) | payer MEDICARE, MEDICAID, SELFPAY ==
--- NOTE | ~2021-01-18 | CT_ITS ---
EXAMINATION: CTA OF THE HEAD/NECK CLINICAL INFORMATION: Left mouth drooping. Altered mental status. History of old right-sided CVA. COMPARISON: Head CT from 01/18/2021. TECHNIQUE: A routine non contrast head CT was performed previously. This is followed by a 70 mL bolus of Omnipaque 350. Subsequent multidetector helical imaging was performed of the head and neck. Delayed post contrast imaging was also performed through the head. Multiplanar reformats and MIP were also obtained. Internal carotid artery stenoses are assessed in accordance with NASCET criteria unless otherwise indicated. This CT examination was performed using dose optimization techniques as appropriate, variously including the following: *Automated exposure control *Adjustment of mA and/or kV according to patient size (this includes techniques or standardized protocols for targeted exams where dose is matched to indication/reason for exam; i.e. extremities or head) *Use of iterative reconstruction technique DLP: 2332 mGy-cm. FINDINGS: CT HEAD: There is no evidence of acute intracranial hemorrhage or territorial infarction. No abnormal mass effect or midline shift is seen. There is a chronic right frontal lobe infarct. Amaya to white matter differentiation is otherwise well preserved. No extra-axial fluid collections are identified. No suspicious leptomeningeal or parenchymal enhancement on the post-contrast images. No hydrocephalus. Proportional prominence of the ventricles and sulcal spaces is consistent with mild volume loss. Patchy periventricular and deep white matter hypoattenuation is consistent with mild small vessel ischemic changes. The osseous structures and soft tissues are normal. Right maxillary sinus mucous retention cyst. The mastoid air cells and visualized portions of the paranasal sinuses are otherwise well aerated. CTA NECK: The aortic arch is of normal caliber and the origins of the great vessels are patent without evidence of significant stenosis. Common origin of the innominate artery and left common carotid artery. The cervical portion of the vertebral arteries are patent bilaterally. No luminal irregularities in the common carotid arteries and the carotid bifurcations are patent bilaterally. The cervical portion of the internal carotid arteries are of normal caliber. The laryngeal structures and pharyngeal mucosal spaces are unremarkable. The oral cavity appears normal. The parotid and submandibular glands are normal. No pathologically enlarged lymph nodes. The thyroid gland is heterogeneous with multiple nodules. The largest measures 1.2 cm. This is likely not clinically significant and no follow-up imaging recommended.. The lung apices are clear without evidence of pneumothorax. Calcified granuloma at the left apex. Spinal alignment is maintained. Mild cervical spondylosis is noted. CTA HEAD: The intradural portion of the vertebral arteries are of normal caliber. The basilar, superior cerebellar, and posterior communicating arteries are patent. There may be a small distal branch of the right middle cerebral artery which appears nonopacified, though this is in the area of previous right frontal lobe infarct and may be chronic. The posterior, middle, and anterior cerebral arteries are of normal caliber without additional evidence of significant luminal irregularity. No definite intracranial aneurysms. CT/CT angio head neck stroke IMPRESSION: 1. Chronic right frontal lobe infarct. No acute intracranial finding. 2. There is no large vessel occlusion or stenosis. There may be lack of opacification of a small distal branch of the right MCA, though this is in the area of the previous infarct and may not be acute. This critical result was discussed with Clementina West MD by telephone at 01/19/2021 12:39 AM and it was ascertained that the content and urgency of the report was understood at the time of direct communication.
--- NOTE | ~2021-01-18 | CT_ITS ---
EXAMINATION: CT HEAD WITHOUT CONTRAST (STROKE PROTOCOL) CLINICAL INFORMATION: Stroke protocol. mouth drooping. Altered mental status. History of CVA. COMPARISON: None TECHNIQUE: Contiguous axial imaging was performed from the skull base to vertex without intravenous administration of contrast. This CT examination was performed using dose optimization techniques as appropriate, variously including the following: *Automated exposure control *Adjustment of mA and/or kV according to patient size (this includes techniques or standardized protocols for targeted exams where dose is matched to indication/reason for exam; i.e. extremities or head) *Use of iterative reconstruction technique DLP: 655 mGy-cm FINDINGS: There is no intracranial hemorrhage, hematoma, or extra-axial fluid collection. Age-appropriate atrophy with prominence of the ventricles and sulci. Old lacunar infarcts in the right basal ganglia. There is no hydrocephalus, edema, or mass effect. The tristan-white matter differentiation appears symmetric. There is no acute infarct or mass lesion. No acute osseous abnormality. Small retention polyp in the right maxillary sinus. The mastoid air cells and middle ear cavities are normally aerated. CT/CT head for stroke IMPRESSION: No acute intracranial pathology. This critical result was discussed with Dr. West at 2353 hours on 01/18/2021. It was ascertained that the content and urgency of the report was understood at the time of direct communication.
[2021-01-18 23:43] VITALS: BP 128/71; PULSE 54; PULSE 84; RESP 15; TEMP 37; O2SAT 98; BMI 25.9
--- NOTE | 2021-01-18 23:57 | ECG_ITS ---
Test Reason : AMS Blood Pressure : / mmHG Vent. Rate : 086 BPM Atrial Rate : 086 BPM P-R Int : 134 ms QRS Dur : 076 ms QT Int : 386 ms P-R-T Axes : 074 -35 041 degrees QTc Int : 461 ms Normal sinus rhythm Left axis deviation Abnormal ECG When compared with ECG of 14-JAN-2021 20:04, No significant change was found Referred By: Clementina West Electronically Signed By:Jimmy Martínez
--- NOTE | 2021-01-18 23:58 | ED_ITS ---
HPI - General Adult General Chief complaint: Neuro Symptoms/Deficit Stated complaint: stroke alert Time Seen by Provider: 01/18/21 23:42 Source: EMS Mode of arrival: EMS Limitations: altered mental status History of Present Illness HPI narrative: Patient is brought to the emergency room, brought by EMS from the [facility]. She is coming in for stroke-like symptoms. This afternoon patient was seen normal at 445pm. Approximately 1/2 hour prior to arrival, patient was seen with left mouth drooping, altered mental status. Patient had a previous CVA, has chronic right upper and lower extremity weakness and motor deficit. At baseline, patient is usually able to respond some questions, does have minimal engagement with people. Today, patient is not answering any questions, does wake up to painful stimuli. Patient unable to follow any commands Related Data Home Medications Medication Instructions Recorded Confirmed anastrozole 1 mg tablet 1 mg PO DAILY 01/03/21 01/19/21 furosemide 20 mg tablet 20 mg PO DAILY 01/03/21 01/19/21 hydroxyzine pamoate 50 mg capsule 50 mg PO ONCE cap 01/03/21 01/19/21 lisinopril 40 mg tablet 40 mg PO DAILY 01/03/21 01/19/21 memantine 28 mg capsule 28 mg PO DAILY 01/03/21 01/19/21 sprinkle,extended release 24hr metoprolol tartrate 50 mg tablet 50 mg PO BID 01/03/21 01/19/21 amlodipine 5 mg PO DAILY 01/14/21 01/19/21 aspirin 81 mg PO DAILY 01/14/21 01/19/21 Previous Rx's Medication Instructions Recorded acetaminophen [Tylenol Extra 1,000 mg PO QID PRN #14 tab 12/29/20 Strength] quetiapine 50 mg tablet 50 mg PO BEDTIME 90 Days #90 tab 01/10/21 Allergies Allergy/AdvReac Type Severity Reaction Status Date / Time No Known Allergies Allergy Verified 01/14/21 19:15 Review of Systems Review of Systems: Yes Unobtainable due to mental condition PMFSH Past Medical History Medical History Right hemiplegia Ventral hernia Family History Family History Father No problems noted. Mother No problems noted. Social History Social History Alcohol intake: never Smoking Status: Never smoker Use of substances other than those prescribed or required for medical reasons: No Advance Directives: No Physical Exam Vital Signs: Vital Signs: Last Vital Signs Temp 98.6 F 01/18/21 23:43 Pulse 94 01/19/21 01:25 Resp 18 01/19/21 01:25 BP 131/62 01/19/21 01:25 Pulse Ox 98 01/19/21 01:25 Body Mass Index 25.9 Appearance: Alert. Opens her eyes to command Eyes: Pupils equal, round and reactive to light. ENT: Pharynx normal. Neck: Normal inspection. Neck supple. No lymph nodes noted. No crepitus CVS: Normal heart rate and rhythm. Pulses normal. Normal S1 and S2 Respiratory: No respiratory distress. Breath sounds normal. No Wheezing. No rales Abdomen: Soft and nontender. No rigidity. No distention. good BS x4 Skin: Skin warm and dry. Extremities: No lower extremity edema. Neuro: Chronic right-sided motor deficit in upper and lower extremity, new onset left mouth droop, patient unable to follow commands NIH Stroke Scale Level of Consciousness: Not Alert; but arousable by minor stimulation Level of Consciousness Questions: Answers neither question correctly Level of Consciousness Commands: Performs neither task correctly Best Gaze: Normal Visual: No visual loss Facial Palsy: Partial paralysis Motor Arm (Right): Some effort against gravity Motor Arm (Left): No drift Motor Leg (Right): Some effort against gravity Motor Leg (Left): No drift Limb Ataxia: Absent Sensory: Normal Best Language: Mild to moderate aphasia (Chronic) Dysarthia: Mild to moderate dysarthria (Chronic) Extinction and Inattention: No abnormality Score: 13 Course Course Course Narrative: By the time of arrival, patient is outside of the window for treatment for CVA. NIH score is difficult to assess, patient is not following any commands, also, patient is known to have chronic deficits in the right upper and lower extremities I discussed with [facility] the 1st CT, which does not show any acute pathology Patient is now more awake, engaging in basic conversation. Patient states that she is doing okay. I discussed the CT and CTA with Dr. Broussard, patient is being admitted. Patient remained stable and now is more alert Medical Decision Making Lab Data Result diagrams: 01/18/21 23:57 01/18/21 23:57 Labs: Lab Results 01/18/21 01/18/21 01/18/21 Range/Units 23:48 23:48 23:57 WBC 11.4 H (4.8-10.8) X10*3/uL RBC 5.50 (4.20-5.50) X10*6/uL Hgb 14.7 (12.0-16.0) g/dl Hct 45.6 (37-47) % MCV 82.9 (80-98) fL MCH 26.7 L (27.0-33.0) pg MCHC 32.2 (31.0-35.0) g/dl RDW 15.3 (11.0-16.0) % Plt Count 623 H (160-400) X10*3/uL MPV 10.1 (9.4-12.3) fL Immature Gran % (Auto) 0.4 (0.0-0.4) % Neut % (Auto) 79.8 H (45-73) % Lymph % (Auto) 11.3 L (20-40) % [place] % (Auto) 6.5 (2-11) % Eos % (Auto) 1.6 (0-4) % Baso % (Auto) 0.4 (0-2) % Lymph # (Auto) 1.3 (1.2-4.9) X10*3/uL [place] # (Auto) 0.7 (0.1-1.2) X10*3/uL Eos # (Auto) 0.2 (0.0-0.4) X10*3/uL Baso # (Auto) 0.0 (0.0-0.2) X10*3/uL Abs Immat Gran (auto) 0.04 H (0.00-0.03) X10*3/uL Absolute Neuts (auto) 9.1 H (2.0-8.3) X10*3/uL Absolute Nucleated RBC 0.000 (0.0-0.012) X10*3/uL Nucleated RBC % (auto) 0.0 (0.0-0.2) /100WBC Whole Blood PT 14.6 H (11.1-13.5) sec Whole Blood INR 1.2 H (0.9-1.1) Sodium (135-145) mmol/L Potassium (3.3-5.1) mmol/L Chloride (96-108) mmol/L Carbon Dioxide (22-29) mmol/L Anion Gap (12-20) BUN (9-16) mg/dL Creatinine (0.5-1.4) mg/dL Estim Creat Clear Calc Estimated GFR POC Glucose 89 (60-115) mg/dL Random Glucose (60-115) mg/dL Calcium (8.4-10.2) mg/dL Total Bilirubin (0.0-1.0) mg/dL Direct Bilirubin (0.0-0.5) mg/dL AST (5-31) U/L ALT (0-31) U/L Alkaline Phosphatase (39-117) U/L Troponin I High Sens (<3.5-17.0) ng/L Total Protein (6.5-8.0) g/dL Albumin (3.5-5.0) g/dL Urine Color Urine Appearance Urine pH (5.0-8.0) Ur Specific [place] (1.005-1.025) Urine Protein (NEG-TRACE) MG/DL Urine Glucose (UA) (NEG) MG/DL Urine Ketones (NEG) MG/DL Urine Blood (NEG) Urine Nitrite (NEG) Ur Leukocyte Esterase (NEG) 01/18/21 01/18/21 01/19/21 Range/Units 23:57 23:57 00:35 WBC (4.8-10.8) X10*3/uL RBC (4.20-5.50) X10*6/uL Hgb (12.0-16.0) g/dl Hct (37-47) % MCV (80-98) fL MCH (27.0-33.0) pg MCHC (31.0-35.0) g/dl RDW (11.0-16.0) % Plt Count (160-400) X10*3/uL MPV (9.4-12.3) fL Immature Gran % (Auto) (0.0-0.4) % Neut % (Auto) (45-73) % Lymph % (Auto) (20-40) % [place] % (Auto) (2-11) % Eos % (Auto) (0-4) % Baso % (Auto) (0-2) % Lymph # (Auto) (1.2-4.9) X10*3/uL [place] # (Auto) (0.1-1.2) X10*3/uL Eos # (Auto) (0.0-0.4) X10*3/uL Baso # (Auto) (0.0-0.2) X10*3/uL Abs Immat Gran (auto) (0.00-0.03) X10*3/uL Absolute Neuts (auto) (2.0-8.3) X10*3/uL Absolute Nucleated RBC (0.0-0.012) X10*3/uL Nucleated RBC % (auto) (0.0-0.2) /100WBC Whole Blood PT (11.1-13.5) sec Whole Blood INR (0.9-1.1) Sodium 145 (135-145) mmol/L Potassium 4.8 (3.3-5.1) mmol/L Chloride 105 (96-108) mmol/L Carbon Dioxide 28 (22-29) mmol/L Anion Gap 17 (12-20) BUN 45 H (9-16) mg/dL Creatinine 1.85 H (0.5-1.4) mg/dL Estim Creat Clear Calc 24.1 Estimated GFR 27 POC Glucose (60-115) mg/dL Random Glucose 97 D (60-115) mg/dL Calcium 9.4 (8.4-10.2) mg/dL Total Bilirubin 1.3 H (0.0-1.0) mg/dL Direct Bilirubin 0.6 H (0.0-0.5) mg/dL AST 14 D (5-31) U/L ALT 16 (0-31) U/L Alkaline Phosphatase 88 (39-117) U/L Troponin I High Sens 113.5 H (<3.5-17.0) ng/L Total Protein 6.9 (6.5-8.0) g/dL Albumin 3.7 (3.5-5.0) g/dL Urine Color DARK YELLOW Urine Appearance CLEAR Urine pH 5.5 (5.0-8.0) Ur Specific [place] 1.025 (1.005-1.025) Urine Protein NEG (NEG-TRACE) MG/DL Urine Glucose (UA) NEG (NEG) MG/DL Urine Ketones NEG (NEG) MG/DL Urine Blood NEG (NEG) Urine Nitrite NEG (NEG) Ur Leukocyte Esterase NEG (NEG) Imaging Data Dry head CT: Radiologist's impression: There is no intracranial hemorrhage, hematoma, o r extra-axial fluid collection. Age-appropriate atrophy with prominence of the ventricles and sulci. Old lacunar infarcts in the right basal ganglia. There is no hydrocephalus, edema, or mass effect. The amaya-white matter differentiation appears symmetric. There is no acute infarct or mass lesion. No acute osseous abnormality. Small retention polyp in the right maxillary sinus. The mastoid air cells and middle ear cavities are normally aerated. CT/CT head for stroke IMPRESSION: No acute intracranial pathology. This critical result was discussed with Dr. West at 2353 hours on 01/18/2021. It was ascertained that the content and urgency of the report was understood at the time of direct communication. CTA head and neck: Radiologist's impression: CT HEAD: There is no evidence of acute intracranial hemorrhage or territorial infarction. No abnormal mass effect or midline shift is seen. There is a chronic right frontal lobe infarct. Amaya to white matter differentiation is otherwise well preserved. No extra-axial fluid collections are identified. No suspicious leptomeningeal or parenchymal enhancement on the post-contrast images. No hydrocephalus. Proportional prominence of the ventricles and sulcal spaces is consistent with mild volume loss. Patchy periventricular and deep white matter hypoattenuation is consistent with mild small vessel ischemic changes. The osseous structures and soft tissues are normal. Right maxillary sinus mucous retention cyst. The mastoid air cells and visualized portions of the paranasal sinuses are otherwise well aerated. CTA NECK: The aortic arch is of normal caliber and the origins of the great vessels are patent without evidence of significant stenosis. Common origin of the innominate artery and left common carotid artery. The cervical portion of the vertebral arteries are patent bilaterally. No luminal irregularities in the common carotid arteries and the carotid bifurcations are patent bilaterally. The cervical portion of the internal carotid arteries are of normal caliber. The laryngeal structures and pharyngeal mucosal spaces are unremarkable. The oral cavity appears normal. The parotid and submandibular glands are normal. No pathologically enlarged lymph nodes. The thyroid gland is heterogeneous with multiple nodules. The largest measures 1.2 cm. This is likely not clinically significant and no follow-up imaging recommended.. The lung apices are clear without evidence of pneumothorax. Calcified granuloma at the left apex. Spinal alignment is maintained. Mild cervical spondylosis is noted. CTA HEAD: The intradural portion of the vertebral arteries are of normal caliber. The basilar, superior cerebellar, and posterior communicating arteries are patent. There may be a small distal branch of the right middle cerebral artery which appears nonopacified, though this is in the area of previous right frontal lobe infarct and may be chronic. The posterior, middle, and anterior cerebral arteries are of normal caliber without additional evidence of significant luminal irregularity. No definite intracranial aneurysms. CT/CT angio head neck stroke IMPRESSION: 1. Chronic right frontal lobe infarct. No acute intracranial finding. 2. There is no large vessel occlusion or stenosis. There may be lack of opacification of a small distal branch of the right MCA, though this is in the area of the previous infarct and may not be acute. This critical result was discussed with Clementina West MD by telephone at 01/19/2021 12:39 AM and it was ascertained that the content and urgency of the report was understood at the time of direct communication. ECG Data Attestation: I personally reviewed and interpreted this ECG as follows: (Rate 86, sinus rhythm, no ST segment depression or elevation, no T-wave inversions) Discharge Plan Discharge Clinical Impression: CVA (cerebral vascular accident) Patient Disposition: Admitted As Inpatient
[2021-01-19] VITALS (7 sets, daily range): BP systolic 118–163; BP diastolic 62–87; PULSE 94–108; RESP 12–19; TEMP 36.5; O2SAT 93–98
[2021-01-19 00:03] LABS: MANUAL DIFF FLAG NO
[2021-01-19 00:05] LABS: Prothrombin Time Whole Bld POC 14.6 sec (11.1-13.5); ~PT, ~INR - Anti Coag Clinic 1.2 (0.9-1.1)
[2021-01-19 00:05] LABS: Basophils Percent Auto 0.4 % (0-2); Eosinophils Absolute Auto 0.2 X10*3/uL (0.0-0.4); Eosinophils Percent Auto 1.6 % (0-4); Hematocrit 45.6 % (37-47); Hemoglobin 14.7 g/dl (12.0-16.0); Imm Gran Abs Auto 0.04 X10*3/uL (0.00-0.03); Imm Gran Pct Auto 0.4 % (0.0-0.4); Lymphocytes Absolute Auto 1.3 X10*3/uL (1.2-4.9); Lymphocytes Percent Auto 11.3 % (20-40); Mean Corpuscular HGB Conc 32.2 g/dl (31.0-35.0); Mean Corpuscular Hemoglobin 26.7 pg (27.0-33.0); Mean Corpuscular Volume 82.9 fL (80-98); Mean Platelet Volume 10.1 fL (9.4-12.3); Monocytes Absolute Auto 0.7 X10*3/uL (0.1-1.2); Monocytes Percent Auto 6.5 % (2-11); Neutrophils Absolute Auto 9.1 X10*3/uL (2.0-8.3); Neutrophils Percent Auto 79.8 % (45-73); Platelet Count 623 X10*3/uL (160-400); Red Cell Distribution Width 15.3 % (11.0-16.0); White Blood Count 11.4 X10*3/uL (4.8-10.8)
[2021-01-19 00:06] LABS: Glucose, Whole Blood 89 mg/dL (60-115)
[2021-01-19] MEDS: iohexoL 350 MG/ML 100 ML INFUS..BTL 70 ML IV (00:26)
[2021-01-19 00:27] LABS: Alanine Aminotransferase 16 U/L (0-31); Albumin Level 3.7 g/dL (3.5-5.0); Alkaline Phosphatase 88 U/L (39-117); Anion Gap 17 (12-20); Aspartate Amino Transferase 14 U/L (5-31); Bilirubin Direct 0.6 mg/dL (0.0-0.5); Bilirubin Total 1.3 mg/dL (0.0-1.0); Calcium 9.4 mg/dL (8.4-10.2); Carbon Dioxide 28 mmol/L (22-29); Chloride 105 mmol/L (96-108); Creatinine Clr Calc Pharmacy 24.1; Estimated Glomerular Filt Rate 27; Glucose Random 97 mg/dL (60-115); Potassium 4.8 mmol/L (3.3-5.1); Sodium 145 mmol/L (135-145); Total Protein 6.9 g/dL (6.5-8.0)
[2021-01-19 00:31] LABS: Blood Urea Nitrogen 45 mg/dL (9-16)
[2021-01-19 00:40] LABS: Appearance Urine CLEAR; Color Urine DARK YELLOW; Glucose Urine UA NEG (NEG); Leukocyte Esterase Urine NEG (NEG); Nitrite Urine NEG (NEG); PH 5.5 (5.0-8.0); Specific Gravity - Urine 1.025 (1.005-1.025); UACC Culture Trigger NO; Urine Blood NEG (NEG); Urine Ketones NEG (NEG); Urine Protein NEG (NEG-TRACE)
[2021-01-19 00:40] LABS: Troponin-I High Sensitivity 113.5 ng/L (<3.5-17.0)
--- NOTE | 2021-01-19 02:09 | P.HPHOSP_ITS ---
History of Present Illness Date of Service: 01/19/21 Chief Complaint: Left facial droop 75-year-old female with a past medical history of CVA with right-sided deficits; chronic speech difficulty; dementia, hypertension, anxiety, history of breast cancer, lives in a intermediate presented to the hospital with a chief complaint of left facial droop; most of the history obtained from the ER staff and patient's son. Reportedly patient had noted blood facial droop around 4:45pm; ; ER physician mentioned that when she saw the patient during the last admission patient did not have this left-sided facial droop. Currently patient also noted to hospice difficulty, Which is been chronic but appears more prominent. Patient denied any chest pain palpitations lightheadedness or dizziness. Spoke to the patient and patient's son along with a weatherization director. Review of all other systems is negative except mentioned above ER course: For ER team patient noted to have left-sided weakness and left facial droop; lobe infarct; no acute intracranial finding; CTA head and neck showed no large vessel occlusion or stenosis and question distal right MCA opacification likely chronic. Patient labs showed mild KELSY. Urinalysis negative. Admitted for further management. ON LICENSE OF [facility] Medical History Facial droop Left hemiparesis Ventral hernia Family History Father No problems noted. Mother No problems noted. Social History Household Members: None Housing: Halfway Do you presently have visiting nurse or other home services: No Unable to assess alcohol history related to: Unknown Alcohol intake: never Smoking Status: Never smoker service: No Current occupational status: retired [employer] Allergies Allergy/AdvReac Type Severity Reaction Status Date / Time No Known Allergies Allergy Verified 01/14/21 19:15 Active Medications: Current Medications Generic Name Dose Route Start Last Admin Trade Name Freq PRN Reason Stop Dose Admin Acetaminophen 650 mg 01/19/21 01:24 Acetaminophen Supp 650 Mg Supp.Rect CO Q6H PRN Pain, Mild (Pain Scale 1-3) Aspirin 81 mg 01/19/21 09:00 Aspirin Enteric Coated 81 Mg Tablet.Dr PO DAILY JOSH Senna 17.2 mg 01/19/21 01:24 Sennosides 8.6 Mg Tablet PO BEDTIME PRN Constipation Home Medications Medication Instructions Recorded Confirmed Last Taken Type anastrozole 1 mg tablet 1 mg PO DAILY 01/03/21 01/19/21 01/18/21 History furosemide 20 mg tablet 20 mg PO DAILY 01/03/21 01/19/21 01/18/21 History hydroxyzine pamoate 50 mg capsule 50 mg PO ONCE cap 01/03/21 01/19/21 01/18/21 History lisinopril 40 mg tablet 40 mg PO DAILY 01/03/21 01/19/21 01/18/21 History memantine 28 mg capsule 28 mg PO DAILY 01/03/21 01/19/21 01/18/21 History sprinkle,extended release 24hr metoprolol tartrate 50 mg tablet 50 mg PO BID 01/03/21 01/19/21 01/18/21 History amlodipine 5 mg PO DAILY 01/14/21 01/19/21 01/18/21 History aspirin 81 mg PO DAILY 01/14/21 01/19/21 01/18/21 History Physical Exam Vital Signs and Narrative: Vital Signs: Last Vital Signs Temp 98.6 F 01/18/21 23:43 Pulse 94 01/19/21 01:25 Resp 18 01/19/21 01:25 BP 131/62 01/19/21 01:25 Pulse Ox 98 01/19/21 01:25 Body Mass Index 25.9 Resp: Other: Gen: Appears be in no acute distress HEENT: NCAT, Moist mucosa. Pulmonary: Vesicular breath sounds, fair air entry CVS: Normal S1-S2 Abdomen: BS+, Soft, Nontender Extremities: Warm well perfused Neuro: Alert and awake. Tongue is midline; uvula midline; Patient noted to have left-sided facial droop; sensations intact; noted slightly more prominent left-sided weakness on lower extremities compared to right; Results Labs CBC and Chem 7: 01/19/21 05:51 01/19/21 05:51 Labs: Laboratory Results - last 24 hr 01/18/21 01/18/21 01/18/21 23:48 23:48 23:57 MCV 82.9 MCH 26.7 L MCHC 32.2 RDW 15.3 Plt Count 623 H MPV 10.1 Immature Gran % (Auto) 0.4 Neut % (Auto) 79.8 H Lymph % (Auto) 11.3 L Armstrong % (Auto) 6.5 Eos % (Auto) 1.6 Baso % (Auto) 0.4 Lymph # (Auto) 1.3 Armstrong # (Auto) 0.7 Eos # (Auto) 0.2 Baso # (Auto) 0.0 Abs Immat Gran (auto) 0.04 H Absolute Neuts (auto) 9.1 H Absolute Nucleated RBC 0.000 Nucleated RBC % (auto) 0.0 Whole Blood PT 14.6 H Whole Blood INR 1.2 H Anion Gap Estim Creat Clear Calc Estimated GFR POC Glucose 89 Random Glucose Calcium Total Bilirubin Direct Bilirubin AST ALT Alkaline Phosphatase Troponin I High Sens Total Protein Albumin Urine Color Urine Appearance Urine pH Ur Specific [place] Urine Protein Urine Glucose (UA) Urine Ketones Urine Blood Urine Nitrite Ur Leukocyte Esterase 01/18/21 01/18/21 01/19/21 23:57 23:57 00:35 MCV MCH MCHC RDW Plt Count MPV Immature Gran % (Auto) Neut % (Auto) Lymph % (Auto) Armstrong % (Auto) Eos % (Auto) Baso % (Auto) Lymph # (Auto) Armstrong # (Auto) Eos # (Auto) Baso # (Auto) Abs Immat Gran (auto) Absolute Neuts (auto) Absolute Nucleated RBC Nucleated RBC % (auto) Whole Blood PT Whole Blood INR Anion Gap 17 Estim Creat Clear Calc 24.1 Estimated GFR 27 POC Glucose Random Glucose 97 D Calcium 9.4 Total Bilirubin 1.3 H Direct Bilirubin 0.6 H AST 14 D ALT 16 Alkaline Phosphatase 88 Troponin I High Sens 113.5 H Total Protein 6.9 Albumin 3.7 Urine Color DARK YELLOW Urine Appearance CLEAR Urine pH 5.5 Ur Specific [place] 1.025 Urine Protein NEG Urine Glucose (UA) NEG Urine Ketones NEG Urine Blood NEG Urine Nitrite NEG Ur Leukocyte Esterase NEG Imaging Radiologist's Impressions: Impressions Head CT 01/18/21 23:42 IMPRESSION: No acute intracranial pathology. This critical result was discussed with Dr. West at 2353 hours on 01/18/2021. It was ascertained that the content and urgency of the report was understood at the time of direct communication. Head/Neck CTA 01/18/21 23:42 IMPRESSION: 1. Chronic right frontal lobe infarct. No acute intracranial finding. 2. There is no large vessel occlusion or stenosis. There may be lack of opacification of a small distal branch of the right MCA, though this is in the area of the previous infarct and may not be acute. This critical result was discussed with Clementina West MD by telephone at 01/19/2021 12:39 AM and it was ascertained that the content and urgency of the report was understood at the time of direct communication. Assessment and Plan (1) CVA (cerebral vascular accident): Status: Acute 75-year-old female with a past medical history of hypertension, hyperlipidemia, Alzheimer's dementia, history of CVA with right hemiplegia; intermediate resident, history of breast cancer presented to the hospital with a chief complaint of left facial droop. Left facial droop: CT head and neck showed no acute findings.-noted chronic infarct. (inconclusive information; son reports that at facial droop is present before part per ER staff and intermediate which new finding) NPO Speech and swallow eval PT/OT Neurology consult Neuro checks Echocardiogram Telemetry Cycle cardiac enzymes Patient was not on statin at home Mild KELSY: gentle Fluids; avoid nephrtoxins Dementia: Continue home medications once cleared by speech and Swallow DVT prophylaxis: SCD boots Code status: Full code-discussed with the patient's son
[2021-01-19 03:23] LABS: COVID-19 Test Negative (Negative)
[2021-01-19 03:53] LABS: Troponin-I High Sensitivity 102.6 ng/L (<3.5-17.0)
[2021-01-19 06:41] LABS: MANUAL DIFF FLAG NO
[2021-01-19 06:59] LABS: Basophils Percent Auto 0.4 % (0-2); Eosinophils Absolute Auto 0.2 X10*3/uL (0.0-0.4); Hematocrit 42.7 % (37-47); Hemoglobin 13.6 g/dl (12.0-16.0); Imm Gran Abs Auto 0.04 X10*3/uL (0.00-0.03); Imm Gran Pct Auto 0.4 % (0.0-0.4); Lymphocytes Percent Auto 8.9 % (20-40); Mean Corpuscular HGB Conc 31.9 g/dl (31.0-35.0); Mean Corpuscular Hemoglobin 26.5 pg (27.0-33.0); Mean Corpuscular Volume 83.2 fL (80-98); Mean Platelet Volume 10.5 fL (9.4-12.3); Monocytes Absolute Auto 0.8 X10*3/uL (0.1-1.2); Monocytes Percent Auto 7.5 % (2-11); Neutrophils Absolute Auto 8.9 X10*3/uL (2.0-8.3); Neutrophils Percent Auto 80.8 % (45-73); Platelet Count 597 X10*3/uL (160-400); Red Blood Count 5.13 X10*6/uL (4.20-5.50); Red Cell Distribution Width 15.3 % (11.0-16.0)
[2021-01-19 07:14] LABS: Glucose, Whole Blood 101 mg/dL (60-115)
[2021-01-19 07:21] LABS: Anion Gap 14 (12-20); Blood Urea Nitrogen 41 mg/dL (9-16); Calcium 8.9 mg/dL (8.4-10.2); Carbon Dioxide 28 mmol/L (22-29); Chloride 106 mmol/L (96-108); Cholesterol 129 mg/dL; Creatinine Clr Calc Pharmacy 29.2; Estimated Glomerular Filt Rate 33; Glucose Random 88 mg/dL (60-115); HDL Cholesterol 49 mg/dL; LDL Cholesterol Calculated 66 mg/dl; Potassium 4.5 mmol/L (3.3-5.1); Sodium 143 mmol/L (135-145); Triglycerides 74 mg/dL
--- NOTE | 2021-01-19 07:30 | CA_ITS ---
Transthoracic Echocardiogram Patient (Last, First, Middle): Mallika Moran, Gender: Female Date of : 1945 Age: 75 Procedure Date: 01/19/2021 Procedure Type: Transthoracic [place] [facility] [place]: 160.02 cm Weight: 66.23 kg BSA: 1.69 m2 Heart Rate: bpm BP: 118 / 63 mmHg Mixer Diamond Powder: GABRIEL Danielson MD: Mustapha Broussard MD Symptoms: cva Study Quality: Fair Conclusions: - Normal left ventricular cavity size. There is moderately increased left ventricular wall thickness. The left ventricular systolic function is hyperdynamic. - Normal right ventricular cavity size and systolic function. - The left atrium is mildly dilated. - The inferior vena cava is collapsed, consistent with reduced intravascular volume. Findings Left Ventricle Normal left ventricular cavity size. There is moderately increased left ventricular wall thickness. The left ventricular systolic function is hyperdynamic. The visually estimated ejection fraction is >70%. Abnormal diastolic function is noted. Spectral Doppler is indicative of an impaired relaxation filling pattern. Elevated filling pressures. Right Ventricle Normal right ventricular cavity size and systolic function. Atria The left atrium is mildly dilated. Aortic Valve There is a normal trileaflet aortic valve. There is mild calcification of the aortic valve. There is no aortic valve stenosis. Mitral Valve The mitral valve appears normal. There is trace mitral valve regurgitation. There is no mitral valve stenosis. Pulmonic Valve Normal pulmonic valve structure and function. Tricuspid Valve Normal tricuspid valve structure and function. There is trace tricuspid valve regurgitation. Normal right atrial pressure. There is no evidence of pulmonary hypertension. Great Vessels All visible segments of the aorta are normal in size. The visualized portions of the pulmonary artery and branches are normal. Venous The inferior vena cava is collapsed, consistent with reduced intravascular volume. Pericardium/Pleural There is no evidence of pericardial effusion. Prior Study Comparison No prior study available for comparison. Measurements 2D Linear Measurements IVSd: 1.24 0.6-0.9/0.6-1.0 cm LVIDd: 4.05 3.9-5.3/4.2-5.9 cm LVIDd Index: 2.40 2.4-3.2/2.2-3.1 cm/m2 LVIDs: 3.05 2.0-3.6 cm LVPWd: 1.22 0.7-1.1 cm Ao Root: 3.10 2.1-3.5 cm LA Diam: 2.70 2.7-3.8/3.0-4.0 cm LAIDs Index: 1.60 1.5-2.3 cm/m2 LV Mass: 217.84 67-162/88-224 g LV Mass Index: 128.90 43-95/49-115 g/m2 LVOT Diam: 1.90 3.0+(-)1.3 cm 2D Systolic Function EF 4C: 63.90 >55% EF 2C: 45.70 >55% Mitral Valve MV Pk E: 0.80 MV PK A: 1.21 MV Decel Time: 151.00 E/A: 0.70 E'Lateral: 5.90 E'Medial: 4.93 E/E' Med: 16.20 E/E' Lat: 13.50 PHT: 44.00 MVA PHT: 5.00 Decel Otoe: 5.26 Aortic Valve AoV Pk Yvan: 1.82 AoV Mn Yvan: 1.25 AoV VTI: 0.29 AoV Pk Grad: 13.00 Aov Mn Grad: 7.00 SONIA Cont.VTI: 1.68 LVOT LVOT Pk Yvan: 1.11 LVOT Mn Yvan: 0.67 LVOT VTI: 0.17 LVOT Pk Grad: 5.00 LVOT Mn Grad: 2.00 LVOT Diam: 1.90 LVOT Area: 2.84 Diastolic Function MV Pk E: 0.80 MV Pk A: 1.21 E/A: 0.70 E'Medial: 4.93 E/E' Med: 16.20 E' Laterial: 5.90 E/E' Lat: 13.50 Tricuspid Valve TR Pk Yvan: 1.60 TR Pk Grad: 10.00 RA Press: 3.00 RVSP: 13.00 Great Vessels Aorta Ao Root-2D: 3.10 2.0-3.7 cm Ao Asc: 3.00 2.1-3.4 cm Ao Arch: 2.00 Updated in Other Vendor System with Status of Final Jimmy Martínez MD electronically signed on 01/19/2021 11:59:45 AM with status of Final
[2021-01-19] MEDS: 0.9 % Sodium Chloride Flush 3 ML SYRINGE IVFLUSH (07:32)
--- NOTE | 2021-01-19 09:47 | MHC.CM.PN ---
Addendum entered by Katie Hsu 01/19/21 11:48: IMM addressed with patient's son Rodri. Copy left at bedside. Original Note: CM spoke with son/HCP Rodri [phone] with palletizer operator who reports patient is dependent for all care and resides at [facility]. Patient does have a copy of HCP on file. Discussed discharge plan, patient will return to [facility] when medically ready. Patient will need BLS transport. CM will continue to follow patient for discharge needs.
[2021-01-19] MEDS: Metoprolol Tartrate 50 MG TABLET PO (10:49)
[2021-01-19] MEDS: Anastrozole 1 MG TABLET PO (10:50)
[2021-01-19] MEDS: Furosemide 20 MG TABLET PO (10:50)
[2021-01-19] MEDS: lisinopriL 40 MG TABLET PO (10:50)
[2021-01-19] MEDS: amLODIPine Besylate 5 MG TABLET PO (10:50)
--- NOTE | 2021-01-19 11:03 | MHC.SL.SWA ---
Speech Pathologist Impression: Within Functional Limits Risk of Aspiration Due to: Reduced Cognition Dysphasia Diet Status: Upgrade Liquid Consistency and Strategies for Safe Swallow: Liquid Intake Recommendation: Thin Liquid Intake Strategies: Unrestricted Solid Food Consistency: Dietary Recommendations: Chopped/Advanced (NDD3) Additional Modifications to Solid Foods: Oral Medication Intake: Whole with Puree Compensatory Strategies and Precautions to be Taken for Safe Swallow: Sitting Upright (90 deg) Supraglottic Swallow Liquids from Cup Liquids from Straw Alternate Liquids/Solids Oral Check Supervision While Eating and Drinking for Safe Swallow: Total Assistance Foods to Avoid: Swallowing Recommended Treatments: Recommendation for Speech: Inpatient Speech Therapy Comment: [facility] will follow up 1x to ensure tolerance. Frequency/Duration: Date Range for Service Req: Timeline to reassess: Patient Services Assistant Clinican/Clinical Fellow: Yes: Tess Calderon M.A., CF-[facility] Supervisory Statement: I have reviewed and agree with the student/clinical fellow's documentation: Speech Language Pathologist:
[2021-01-19 11:20] LABS: Glucose, Whole Blood 113 mg/dL (60-115)
[2021-01-19] MEDS: Aspirin Enteric Coated 81 MG TABLET.DR PO (11:28)
--- NOTE | 2021-01-19 12:59 | P.CNNE_ITS ---
History of Present Illness Data of Consult Service Date: 01/19/21 Primary Care Provider: Unknown Physician 75 years old woman with previous history of stroke causing left hemiparesis and facial weakness resident of a custodial brought yesterday with worsening of her facial droop. I saw her with the help of an bilingual interpreter while her family was around. Her family stated that there was no difference from her previous state compared to what I saw. There was no evidence of any recent seizure-like activity cold or flu-like illness or trauma. [facility] Past Medical History Medical History (Updated 01/19/21 @ 13:05 by Dangelo Coon MD) Left hemiparesis Ventral hernia Family History Family History Father No problems noted. Mother No problems noted. Social History Social History Household Members: None Housing: Group Home Do you presently have visiting nurse or other home services: No Unable to assess alcohol history related to: Unknown Alcohol intake: never Smoking Status: Never smoker Use of substances other than those prescribed or required for medical reasons: Unknown Currently Displaying Signs/Symptoms of Drug Intoxication Withdrawal: No Advance Directives: No Do you have thoughts of harming others: None Do you have a plan to hurt others: No Plan Recently lost weight without trying: Unsure Nutrition Risks: Difficulty swallowing and On aspiration precautions Patient : No : No Poor oral hygiene: No service: No Current occupational status: retired [employer] Allergies Allergy/AdvReac Type Severity Reaction Status Date / Time No Known Allergies Allergy Verified 01/14/21 19:15 Active Medications: Current Medications Generic Name Dose Route Start Last Admin Trade Name Freq PRN Reason Stop Dose Admin Acetaminophen 650 mg 01/19/21 01:24 Acetaminophen Supp 650 Mg Supp.Rect AZ Q6H PRN Pain, Mild (Pain Scale 1-3) Amlodipine Besylate 5 mg 01/19/21 09:00 01/19/21 10:50 Amlodipine Besylate 5 Mg Tablet PO 5 mg DAILY JOSH Administration Protocol Anastrozole 1 mg 01/19/21 09:00 01/19/21 10:50 Anastrozole 1 Mg Tablet PO 1 mg DAILY JOSH Administration Aspirin 81 mg 01/19/21 11:25 01/19/21 11:28 Aspirin Enteric Coated 81 Mg Tablet. PO 81 mg DAILY [facility] Administration Atorvastatin Calcium 40 mg 01/19/21 21:00 Atorvastatin Calcium 40 Mg Tablet PO BEDTIME [facility] Furosemide 20 mg 01/19/21 08:00 01/19/21 10:50 Furosemide 20 Mg Tablet PO 20 mg DAILY@0800 [facility] Administration Protocol Lisinopril 40 mg 01/19/21 09:00 01/19/21 10:50 Lisinopril 40 Mg Tablet PO 40 mg DAILY [facility] Administration Protocol Metoprolol Tartrate 50 mg 01/19/21 09:00 01/19/21 10:49 Metoprolol Tartrate 50 Mg Tablet PO 50 mg BID [facility] Administration Protocol Non-Formulary Medication 28 mg 01/19/21 09:00 Memantine PO DAILY [facility] Quetiapine Fumarate 50 mg 01/19/21 21:00 Quetiapine Fumarate 50 Mg Tablet PO BEDTIME [facility] Senna 17.2 mg 01/19/21 01:24 Sennosides 8.6 Mg Tablet PO BEDTIME PRN Constipation Sodium Chloride 3 ml 01/19/21 08:00 01/19/21 07:32 0.9 % Sodium Chloride Flush 3 Ml Syringe IVFLUSH 3 ml QSHIFT [facility] Administration Home Medications Medication Instructions Recorded Confirmed Last Taken Type anastrozole 1 mg tablet 1 mg PO DAILY 01/03/21 01/19/21 01/18/21 History furosemide 20 mg tablet 20 mg PO DAILY 01/03/21 01/19/21 01/18/21 History hydroxyzine pamoate 50 mg capsule 50 mg PO ONCE cap 01/03/21 01/19/21 01/18/21 History lisinopril 40 mg tablet 40 mg PO DAILY 01/03/21 01/19/21 01/18/21 History memantine 28 mg capsule 28 mg PO DAILY 01/03/21 01/19/21 01/18/21 History sprinkle,extended release 24hr metoprolol tartrate 50 mg tablet 50 mg PO BID 01/03/21 01/19/21 01/18/21 History amlodipine 5 mg PO DAILY 01/14/21 01/19/21 01/18/21 History aspirin 81 mg PO DAILY 01/14/21 01/19/21 01/18/21 History Physical Exam Vital Signs: Vital Signs: Last Vital Signs Temp 97.7 F 01/19/21 12:00 Pulse 98 01/19/21 12:00 Resp 19 01/19/21 12:00 BP 163/87 H 01/19/21 12:00 Pulse Ox 95 01/19/21 12:00 Body Mass Index 25.9 She was alert and awake talking in Romansh able to follow commands. There was moderate severity left-sided facial weakness involving forehead. There was moderately severe left hemiparesis with flexed wrist and elbow. There was no obvious neglect. There was no obvious right-sided weakness. Exam was somewhat limited. Results Labs CBC & Chem 7: 01/19/21 05:51 01/19/21 05:51 Labs: Short CBC 01/18/21 01/19/21 Range/Units 23:57 05:51 WBC 11.4 H 11.0 H (4.8-10.8) X10*3/uL Hgb 14.7 13.6 (12.0-16.0) g/dl Hct 45.6 42.7 (37-47) % Plt Count 623 H 597 H (160-400) X10*3/uL BMP 01/18/21 01/19/21 23:57 05:51 Sodium 145 143 Potassium 4.8 4.5 Chloride 105 106 Carbon Dioxide 28 28 BUN 45 H 41 H Creatinine 1.85 H 1.52 H Calcium 9.4 8.9 Liver Function 01/18/21 Range/Units 23:57 Total Bilirubin 1.3 H (0.0-1.0) mg/dL Direct Bilirubin 0.6 H (0.0-0.5) mg/dL AST 14 D (5-31) U/L ALT 16 (0-31) U/L Alkaline Phosphatase 88 (39-117) U/L Albumin 3.7 (3.5-5.0) g/dL Urine 01/19/21 Range/Units 00:35 Urine Color DARK YELLOW Urine Appearance CLEAR Urine pH 5.5 (5.0-8.0) Ur Specific [place] 1.025 (1.005-1.025) Urine Protein NEG (NEG-TRACE) MG/DL Urine Glucose (UA) NEG (NEG) MG/DL Her CT without contrast of brain and CTA of brain and neck were were reviewed. No obvious acute pathology was noted. Right basal ganglia chronic ischemic infarction cerebral atrophy chronic microvascular ischemic changes otherwise were noted. CTA did not reveal any significant vascular stenosis. Assessment and Plan (1) Left hemiparesis: Problem details: 75 years old woman with chronic left hemiparesis from cerebral infarction. I am not sure if there is any new or acute pathology. Family suggested that she was not different from previous state. At this time I recommend conservative approach with continuation of anti-platelet agent, blood pressure control and control of other vascular risk factors per Status: Acute
--- NOTE | 2021-01-19 13:04 | PM.DS ---
DS: Providers Provider Date of Service: 01/19/21 Date of admission: 01/19/21 02:37 Primary care physician: Unknown Physician Consults: 01/19/21 01:25 Consult to Neurology Routine Consulting Provider: Dangelo Coon Reason for consultation: Left facial droop DS: Diagnosis Discharge Diagnosis (1) Facial droop: Status: Acute DS: Medications Discharge Medications Home Medications: Home Medications Medication Instructions Recorded Confirmed anastrozole 1 mg tablet 1 mg PO DAILY 01/03/21 01/19/21 furosemide 20 mg tablet 20 mg PO DAILY 01/03/21 01/19/21 hydroxyzine pamoate 50 mg capsule 50 mg PO ONCE cap 01/03/21 01/19/21 lisinopril 40 mg tablet 40 mg PO DAILY 01/03/21 01/19/21 memantine 28 mg capsule 28 mg PO DAILY 01/03/21 01/19/21 sprinkle,extended release 24hr metoprolol tartrate 50 mg tablet 50 mg PO BID 01/03/21 01/19/21 amlodipine 5 mg PO DAILY 01/14/21 01/19/21 aspirin 81 mg PO DAILY 01/14/21 01/19/21 Previous Rx's Medication Instructions Recorded acetaminophen [Tylenol Extra 1,000 mg PO QID PRN #14 tab 12/29/20 Strength] quetiapine 50 mg tablet 50 mg PO BEDTIME 90 Days #90 tab 01/10/21 atorvastatin 40 mg PO BEDTIME #30 tab 01/19/21 DS: Summary Hospital Course Hospital Course: patient was admitted for concern over left facial droop. this droop was reported by family to be unchanged. it also appears to involve the forehead as well, making it more likely peripheral. patients asa was continued and lipitor was added due to old cva. she will be discharged back to rehab. Time Spent with Patient Time attestation: Total time spent providing and/or coordinating discharge services: Discharge coordination time: Greater than 30 minutes Physical Exam Vital Signs: Vital Signs: Last Vital Signs Temp 97.7 F 01/19/21 12:00 Pulse 98 01/19/21 12:00 Resp 19 01/19/21 12:00 BP 163/87 H 01/19/21 12:00 Pulse Ox 95 01/19/21 12:00 Body Mass Index 25.9 General: AO X 2, no acute distress Resp: CTA bilateral CVS: S1,S2,RRR GI: soft, non tender, non distended Neuro: left facial droop involving forehead, left hemiparesis Psych: appropriate affect DS: Data Data Completed and Pending Labs on day of discharge: Laboratory Results - last 24 hr 01/18/21 01/18/21 01/18/21 23:48 23:48 23:57 WBC 11.4 H RBC 5.50 Hgb 14.7 Hct 45.6 MCV 82.9 MCH 26.7 L MCHC 32.2 RDW 15.3 Plt Count 623 H MPV 10.1 Immature Gran % (Auto) 0.4 Neut % (Auto) 79.8 H Lymph % (Auto) 11.3 L [place] % (Auto) 6.5 Eos % (Auto) 1.6 Baso % (Auto) 0.4 Lymph # (Auto) 1.3 [place] # (Auto) 0.7 Eos # (Auto) 0.2 Baso # (Auto) 0.0 Abs Immat Gran (auto) 0.04 H Absolute Neuts (auto) 9.1 H Absolute Nucleated RBC 0.000 Nucleated RBC % (auto) 0.0 Whole Blood PT 14.6 H Whole Blood INR 1.2 H Sodium Potassium Chloride Carbon Dioxide Anion Gap BUN Creatinine Estim Creat Clear Calc Estimated GFR POC Glucose 89 Random Glucose Calcium Total Bilirubin Direct Bilirubin AST ALT Alkaline Phosphatase Troponin I High Sens Total Protein Albumin Triglycerides Cholesterol LDL Cholesterol, Calc HDL Cholesterol Urine Color Urine Appearance Urine pH Ur Specific [place] Urine Protein Urine Glucose (UA) Urine Ketones Urine Blood Urine Nitrite Ur Leukocyte Esterase COVID-19 (PERLA) COVID-19 Clin Com 01/18/21 01/18/21 01/19/21 23:57 23:57 00:35 WBC RBC Hgb Hct MCV MCH MCHC RDW Plt Count MPV Immature Gran % (Auto) Neut % (Auto) Lymph % (Auto) [place] % (Auto) Eos % (Auto) Baso % (Auto) Lymph # (Auto) [place] # (Auto) Eos # (Auto) Baso # (Auto) Abs Immat Gran (auto) Absolute Neuts (auto) Absolute Nucleated RBC Nucleated RBC % (auto) Whole Blood PT Whole Blood INR Sodium 145 Potassium 4.8 Chloride 105 Carbon Dioxide 28 Anion Gap 17 BUN 45 H Creatinine 1.85 H Estim Creat Clear Calc 24.1 Estimated GFR 27 POC Glucose Random Glucose 97 D Calcium 9.4 Total Bilirubin 1.3 H Direct Bilirubin 0.6 H AST 14 D ALT 16 Alkaline Phosphatase 88 Troponin I High Sens 113.5 H Total Protein 6.9 Albumin 3.7 Triglycerides Cholesterol LDL Cholesterol, Calc HDL Cholesterol Urine Color DARK YELLOW Urine Appearance CLEAR Urine pH 5.5 Ur Specific [place] 1.025 Urine Protein NEG Urine Glucose (UA) NEG Urine Ketones NEG Urine Blood NEG Urine Nitrite NEG Ur Leukocyte Esterase NEG COVID-19 (PERLA) COVID-19 Clin Com 01/19/21 01/19/21 01/19/21 02:57 03:00 05:51 WBC 11.0 H RBC 5.13 Hgb 13.6 Hct 42.7 MCV 83.2 MCH 26.5 L MCHC 31.9 RDW 15.3 Plt Count 597 H MPV 10.5 Immature Gran % (Auto) 0.4 Neut % (Auto) 80.8 H Lymph % (Auto) 8.9 L [place] % (Auto) 7.5 Eos % (Auto) 2.0 Baso % (Auto) 0.4 Lymph # (Auto) 1.0 L [place] # (Auto) 0.8 Eos # (Auto) 0.2 Baso # (Auto) 0.0 Abs Immat Gran (auto) 0.04 H Absolute Neuts (auto) 8.9 H Absolute Nucleated RBC 0.000 Nucleated RBC % (auto) 0.0 Whole Blood PT Whole Blood INR Sodium Potassium Chloride Carbon Dioxide Anion Gap BUN Creatinine Estim Creat Clear Calc Estimated GFR POC Glucose Random Glucose Calcium Total Bilirubin Direct Bilirubin AST ALT Alkaline Phosphatase Troponin I High Sens 102.6 H Total Protein Albumin Triglycerides Cholesterol LDL Cholesterol, Calc HDL Cholesterol Urine Color Urine Appearance Urine pH Ur Specific [place] Urine Protein Urine Glucose (UA) Urine Ketones Urine Blood Urine Nitrite Ur Leukocyte Esterase COVID-19 (PERLA) Negative COVID-19 Clin Com See Note 01/19/21 01/19/21 01/19/21 05:51 07:01 11:00 WBC RBC Hgb Hct MCV MCH MCHC RDW Plt Count MPV Immature Gran % (Auto) Neut % (Auto) Lymph % (Auto) [place] % (Auto) Eos % (Auto) Baso % (Auto) Lymph # (Auto) [place] # (Auto) Eos # (Auto) Baso # (Auto) Abs Immat Gran (auto) Absolute Neuts (auto) Absolute Nucleated RBC Nucleated RBC % (auto) Whole Blood PT Whole Blood INR Sodium 143 Potassium 4.5 Chloride 106 Carbon Dioxide 28 Anion Gap 14 BUN 41 H Creatinine 1.52 H Estim Creat Clear Calc 29.2 Estimated GFR 33 POC Glucose 101 113 Random Glucose 88 Calcium 8.9 Total Bilirubin Direct Bilirubin AST ALT Alkaline Phosphatase Troponin I High Sens Total Protein Albumin Triglycerides 74 Cholesterol 129 LDL Cholesterol, Calc 66 HDL Cholesterol 49 Urine Color Urine Appearance Urine pH Ur Specific [place] Urine Protein Urine Glucose (UA) Urine Ketones Urine Blood Urine Nitrite Ur Leukocyte Esterase COVID-19 (PERLA) COVID-19 Clin Com Discharge Plan Discharge Patient Disposition: [facility] Discharge Diagnosis: facial droop Referrals: Day [facility] [Outside] - 1 Week Physician,Unknown [Primary Care Provider] - 1 Week Discharge Medications: New atorvastatin 40 mg Tablet 40 mg PO BEDTIME Qty: 30 RF: 0 Continued quetiapine 50 mg tablet 50 mg PO BEDTIME 90 Days Qty: 90 RF: 1 acetaminophen [Tylenol Extra Strength] 500 mg tablet 1,000 mg PO QID PRN (Reason: fever or pain) Qty: 14 RF: 0 amlodipine 5 mg Tablet 5 mg PO DAILY RF: 0 aspirin 81 mg Tablet 81 mg PO DAILY RF: 0 memantine 28 mg capsule,sprinkle,ER 24hr 28 mg PO DAILY RF: 0 furosemide 20 mg tablet 20 mg PO DAILY RF: 0 anastrozole 1 mg tablet 1 mg PO DAILY RF: 0 lisinopril 40 mg tablet 40 mg PO DAILY RF: 0 metoprolol tartrate 50 mg tablet 50 mg PO BID RF: 0 hydroxyzine pamoate 50 mg capsule 50 mg PO ONCE RF: 0 Discharge Orders: Discharge Order (Routine); Ordered 01/19/21 Ordered By: Efe Hernandez Diet: advance to usual diet Activity on Discharge: As tolerated Stand Alone Forms: Patient Portal Discharge page Care Plan Goals: prevent cva Health Concerns: history of cva Plan of Treatment: continue asa, added lipitor Assessment: see above
--- NOTE | 2021-01-19 13:27 | MHC.CM.PN ---
Patient will be discharged back to [facility] at 3pm via BLS transport. Nurse and son Rodri are aware.
== END 2021-01-19 15:25 | disposition skilled nursing facility (03) | DRG 683 ==
LOC: HO.ED 01-19 01:01 → HO.EDOVER 01-19 02:45 → HO.IMC 01-19 04:31
PROVIDERS: Admitting Provider Hospitalist; Emergency Provider Emergency Medicine; PCP Internal Medicine; Visit Provider Internal Medicine
DX: N17.9 Acute kidney failure, unspecified (principal); I69.954 Hemiplegia and hemiparesis following unspecified cerebrovascular disease affecting left non-dominant side; I69.992 Facial weakness following unspecified cerebrovascular disease; F03.90 Unspecified dementia, unspecified severity, without behavioral disturbance, psychotic disturbance, mood disturbance, and anxiety; Z20.822 Contact with and (suspected) exposure to COVID-19; Z79.82 Long term (current) use of aspirin; Z79.899 Other long term (current) drug therapy
CPT/HCPCS: 36415; 70450; 70496; 70498; 80048; 80061; 80076; 81003; 82947; 84484; 85025; 85610; 87635; 92610; 93005; 93306; 97162; 97166; 99285; Q9967

== ENCOUNTER 2021-01-22 15:01 | Emergency (ER) | payer MEDICARE, MEDICAID, SELFPAY ==
--- NOTE | ~2021-01-22 | CT_ITS ---
EXAMINATION: CT HEAD WITHOUT CONTRAST CT CERVICAL SPINE WITHOUT CONTRAST CLINICAL INFORMATION: Fall, head injury. COMPARISON: 01/19/2021 CT head. TECHNIQUE: Contiguous axial imaging of the head was performed without the administration of IV contrast. Axial multidetector volumetric images were also performed through the cervical spine without contrast. Multiplanar reconstructed images in coronal and sagittal orientations were submitted. This CT examination was performed using dose optimization techniques as appropriate, variously including the following: *Automated exposure control. *Adjustment of mA and/or kV according to patient size (this includes techniques or standardized protocols for targeted exams where dose is matched to indication/reason for exam; i.e. extremities or head). *Use of iterative reconstruction technique. DLP: 1331 mGy-cm FINDINGS: HEAD: Rotated and tilted positioning of the head. Atypical positioning with associated asymmetry, limiting evaluation. There is also motion artifact limiting evaluation. There is no evidence of acute intracranial hemorrhage or edematous territorial infarction. No gross abnormal mass-effect or midline shift. No extra-axial fluid collections. [id number] matter differentiation is well preserved. Old lacunar infarct in the right basal ganglia, stable. Cerebral volume loss. Mild deep white matter small vessel ischemic changes. No acute calvarial fracture. The sinuses and mastoid air cells are clear. CERVICAL SPINE: Motion artifact degrading images, markedly limiting evaluation. Straightening of the cervical curvature. Craniocervical, atlantoaxial articulation is maintained. Posterior alignment is grossly maintained. Vertebral body heights are grossly maintained. Significant motion artifact limits evaluation for fractures. Cervical spondylosis, with more prominent changes at C6-C7. There is a 8 mm calcified focus in the left upper lobe. Motion artifact limits evaluation of the thyroid gland. CT/CT cervical spine wo con IMPRESSION: CT HEAD: 1. Rotated angulated positioning and motion artifact markedly limits evaluation. 2. No acute intracranial hemorrhage or edematous territorial infarction is seen. 3. Chronic changes as detailed above. 4. Consider repeat CT scan for further evaluation. CT SPINE: 1. Marked motion artifact degrading images, limiting evaluation. Evaluation fracture is very limited. Recommend repeat CT scan. 2. Left upper lobe 8 mm calcified nodular focus. 3. Cervical spondylosis.
[2021-01-22 15:18] VITALS: BP 139/61; PULSE 95; RESP 18; TEMP 36.6; O2SAT 96; BMI 29.2
[2021-01-22 15:54] VITALS: BP 161/77; PULSE 98; RESP 16; O2SAT 98
--- NOTE | 2021-01-22 16:46 | ED_ITS ---
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 Patient was witnessed falling striking the back of her head, no LOC, patient is poor historian, but patient was GCS of 15, able to regard examiner, and follow simple commands, no sign of head injuries, mild cervical spine tenderness. Related Data Home Medications Medication Instructions Recorded Confirmed anastrozole 1 mg tablet 1 mg PO DAILY 01/03/21 01/19/21 furosemide 20 mg tablet 20 mg PO DAILY 01/03/21 01/19/21 hydroxyzine pamoate 50 mg capsule 50 mg PO ONCE cap 01/03/21 01/19/21 lisinopril 40 mg tablet 40 mg PO DAILY 01/03/21 01/19/21 memantine 28 mg capsule 28 mg PO DAILY 01/03/21 01/19/21 sprinkle,extended release 24hr metoprolol tartrate 50 mg tablet 50 mg PO BID 01/03/21 01/19/21 amlodipine 5 mg PO DAILY 01/14/21 01/19/21 aspirin 81 mg PO DAILY 01/14/21 01/19/21 Previous Rx's Medication Instructions Recorded acetaminophen [Tylenol Extra 1,000 mg PO QID PRN #14 tab 12/29/20 Strength] quetiapine 50 mg tablet 50 mg PO BEDTIME 90 Days #90 tab 01/10/21 atorvastatin 40 mg PO BEDTIME #30 tab 01/19/21 Allergies Allergy/AdvReac Type Severity Reaction Status Date / Time No Known Allergies Allergy Verified 01/14/21 19:15 Review of Systems Review of Systems: All other systems are reviewed and are negative Constitutional: Reports as per HPI and Reports no additional constitutional complaints Eyes: Reports as per HPI and Reports no additional eye complaints Reports system reviewed and no additional complaints, except as documented Cardiovascular: Reports as per HPI and Reports no additional cardiovascular complaints Respiratory: Reports as per HPI and Reports no additional respiratory complaints Gastrointestinal: Reports as per HPI and Reports no additional gastrointestinal complaints Genitourinary: Reports no additional female genitourinary complaints Musculoskeletal: Reports no additional musculoskeletal complaints Skin/Breast: Reports system reviewed and no additional complaints, except as docu Psychiatric: Reports no additional psychiatric complaints Endocrine: Reports no additional endocrine complaints Hematologic/Lymphatic: Reports no additional hematologic/lymphatic complaints Allergic/Immunologic: Reports no additional allergic/immunologic complaints Reports system reviewed and no additional complaints, except as documented and Reports Abnormal speech present [facility] Past Medical History Medical History Facial droop Left hemiparesis Ventral hernia Family History Family History Father No problems noted. Mother No problems noted. Social History Social History Household Members: None Housing: Senior Living Do you presently have visiting nurse or other home services: No Unable to assess alcohol history related to: Unknown Alcohol intake: never Smoking Status: Never smoker Use of substances other than those prescribed or required for medical reasons: No Advance Directives: No Advance Directives Information Provided: No service: No Current occupational status: retired Physical Exam Vital Signs: Vital Signs: Last Vital Signs Temp 98.1 F 01/22/21 20:12 Pulse 97 01/22/21 20:12 Resp 18 01/22/21 20:12 BP 154/79 H 01/22/21 20:12 Pulse Ox 98 01/22/21 20:12 Body Mass Index 29.2 Vital signs have been reviewed as appeared to be correct. Blood pressure normal. Heart rate normal. Respiration rate normal. Temperature normal. Oxygen saturation normal. Appearance: Alert, No acute distress. Head: Normal external exam. Normocephalic. Atraumatic. No Pradhan signs noted. No raccoon eyes noted Eyes: PERRLA. EOMI. Conjunctiva and sclera normal. Eyelids normal. ENT: TM's Normal. Pharynx normal. Uvula midline. Moist mucous membranes. No trismus noted. No drooling noted. No muffled voice noted. Neck: Normal inspection. Mild diffuse tenderness in the back of the neck, no step-off, no deformity. CVS: Normal heart rate and rhythm. Heart sound normal. No murmurs noted. Pulses normal throughout. Respiratory: No respiratory distress. Painless inspiration. Breath sounds normal. No wheezes/rales/rhonchi noted. Chest nontender. No accessory muscle usage noted or decreased air movement noted. Abdomen: Soft and nontender. Bowel sounds normal in all 4 quadrants. No distention noted. No organomegaly noted. No visible injury noted. Back: No CVA tenderness. Full range of motion noted. Skin: Skin warm and dry. Normal skin color. Normal skin turgor. No rashes/lesions/lacerations noted. Extremities: No lower extremity edema. Extremities exhibit normal range of motion. Extremities nontender. Neuro: No motor deficit. No sensory deficit. Reflexes normal. Course Course Course Narrative: Assessment and plan. 75-year-old female with history of dementia and poor historian came in after witnessed a mechanical fall. Patient GCS of 15 neuro exam is not indicating for intracranial pathology, patient had a CT of the head unremarkable. Cervical spine CT is in adequate however clinically patient can be cleared. MDM - Fall Imaging Data Head CT: Radiologist's impression: No acute bleed. Cervical spine CT: Radiologist's impression: In adequate study. Discharge Plan Discharge Clinical Impression: Fall, Head injury Patient Disposition: Home, Self-Care Instructions: Fall Prevention (ED) Prescriptions: No Action quetiapine 50 mg tablet 50 mg PO BEDTIME 90 Days Qty: 90 RF: 1 atorvastatin 40 mg Tablet 40 mg PO BEDTIME Qty: 30 RF: 0 acetaminophen [Tylenol Extra Strength] 500 mg tablet 1,000 mg PO QID PRN (Reason: fever or pain) Qty: 14 RF: 0 amlodipine 5 mg Tablet 5 mg PO DAILY RF: 0 aspirin 81 mg Tablet 81 mg PO DAILY RF: 0 memantine 28 mg capsule,sprinkle,ER 24hr 28 mg PO DAILY RF: 0 furosemide 20 mg tablet 20 mg PO DAILY RF: 0 anastrozole 1 mg tablet 1 mg PO DAILY RF: 0 lisinopril 40 mg tablet 40 mg PO DAILY RF: 0 metoprolol tartrate 50 mg tablet 50 mg PO BID RF: 0 hydroxyzine pamoate 50 mg capsule 50 mg PO ONCE RF: 0 Referrals: Jaycee Peters MD [Primary Care Provider] - 2 days Interventions: ED Discharge Assessment Last Done: 01/22/21 22:56 Discharge Date/Time: 01/22/21 22:57
[2021-01-22 20:12] VITALS: BP 154/79; PULSE 97; RESP 18; TEMP 36.7; O2SAT 98
== END 2021-01-22 22:57 | disposition home or self-care (01) ==
PROVIDERS: Emergency Provider Emergency Medicine; PCP Internal Medicine
DX: S09.90XA Unspecified injury of head, initial encounter (principal); W01.198A Fall on same level from slipping, tripping and stumbling with subsequent striking against other object, initial encounter; M54.5 Low back pain; I10 Essential (primary) hypertension; F03.90 Unspecified dementia, unspecified severity, without behavioral disturbance, psychotic disturbance, mood disturbance, and anxiety; F41.9 Anxiety disorder, unspecified; E78.5 Hyperlipidemia, unspecified; Z85.3 Personal history of malignant neoplasm of breast; Y93.89 Activity, other specified; Y92.129 Unspecified place in nursing home as the place of occurrence of the external cause; Y99.9 Unspecified external cause status; Z79.02 Long term (current) use of antithrombotics/antiplatelets; Z79.82 Long term (current) use of aspirin
CPT/HCPCS: 70450; 72125; 99284

== ENCOUNTER 2021-01-27 11:35 | Outpatient (REF) | payer MEDICARE, MEDICAID, SELFPAY ==
--- NOTE | ~2021-01-27 | CT_ITS ---
EXAMINATION: CT ABDOMEN AND PELVIS WITHOUT CONTRAST CLINICAL INFORMATION: Ventral hernia COMPARISON: Previous CT of the abdomen and pelvis 01/14/2021 TECHNIQUE: Multidetector volumetric imaging was performed from the superior aspect of the liver through the pubic symphysis. Sagittal and coronal reformatted images were obtained on the technologist's workstation. This CT examination was performed using dose optimization techniques as appropriate, variously including the following: *Automated exposure control *Adjustment of mA and/or kV according to patient size (this includes techniques or standardized protocols for targeted exams where dose is matched to indication/reason for exam; i.e. extremities or head) *Use of iterative reconstruction technique DLP: 542 mGy-cm FINDINGS: LUNG BASES: The visualized lung bases are unremarkable. LIVER, GALLBLADDER, AND BILIARY TREE: The liver is normal in size, shape, and attenuation. No focal hepatic lesion or biliary ductal dilatation is present. The gallbladder is unremarkable with no evidence of radiopaque gallstones, gallbladder wall thickening, or obvious pericholecystic inflammatory changes. PANCREAS: Unremarkable. SPLEEN: Unremarkable. ADRENAL GLANDS: Unremarkable. KIDNEYS AND URETERS: There is question of a tiny 1 mm right lower pole renal stone. The kidneys are otherwise unremarkable. There is no hydronephrosis. BLADDER: Unremarkable. GASTROINTESTINAL TRACT: The small and large bowel are unremarkable. The appendix is unremarkable. ABDOMINAL WALL: There is a small umbilical hernia containing fat. There is an infraumbilical hernia with wide neck containing small bowel. This measures 8 x 8 x 3 cm in sagittal transverse and AP dimension and has a wide 8 cm neck. LYMPH NODES: Normal. VASCULAR: Unremarkable. PELVIC VISCERA: Uterus appears to have been removed. No pelvic mass is seen. OSSEOUS STRUCTURES: There are degenerative changes of the spine. There is mild 5 mm anterior subluxation of L4 with respect L5 probably secondary to facet arthritis. CT/CT abdomen pelvis wo con IMPRESSION: Small umbilical hernia containing fat and large infraumbilical hernia containing small bowel with a wide neck. No evidence of obstruction.
== END 2021-01-27 11:36 | disposition home or self-care (01) ==
LOC: HO.CT 11:35
PROVIDERS: PCP Internal Medicine; Visit Provider Surgery
DX: K43.9 Ventral hernia without obstruction or gangrene (principal)
CPT/HCPCS: 74176

== ENCOUNTER → 2021-02-16 12:32 | Outpatient (BNVA) | payer MEDICARE, MEDICAID, SELFPAY | PROVIDERS: PCP Internal Medicine; Visit Provider Surgery | DX: K43.9 Ventral hernia without obstruction or gangrene (principal) | CPT/HCPCS: 99212 ==

== ENCOUNTER 2021-03-09 10:30 | Inpatient (IN) | payer MEDICARE, MEDICAID, SELFPAY ==
[2021-03-09] VITALS (22 sets, daily range): BP systolic 72–123; BP diastolic 24–110; PULSE 90–127; RESP 17–28; TEMP 36.6–37.6; O2SAT 95–100; BMI 27.1; BMI 25.1
--- NOTE | 2021-03-09 | ECG_ITS ---
Test Reason : svt resolved Blood Pressure : / mmHG Vent. Rate : 089 BPM Atrial Rate : 089 BPM P-R Int : 128 ms QRS Dur : 078 ms QT Int : 384 ms P-R-T Axes : 055 -32 -09 degrees QTc Int : 467 ms Normal sinus rhythm Left axis deviation Abnormal ECG When compared with ECG of 09-MAR-2021 11:25, Nonspecific T wave abnormality now evident in Anterior leads Referred By: Manolo Burch Electronically Signed By:FAHAD CALHOUN MD
--- NOTE | ~2021-03-09 | CT_ITS ---
EXAMINATION: CT CHEST, ABDOMEN AND PELVIS WITHOUT CONTRAST CLINICAL INFORMATION: Rule out metastatic cancer. Chest pain. COMPARISON: Chest x-ray 03/09/2021. CT abdomen and pelvis without contrast 01/27/2021 TECHNIQUE: 5 mm thin axial and reformatted 3 mm thin sagittal and coronal images of chest, abdomen and pelvis were obtained without contrast. DLP: 711 mGy-cm FINDINGS: CHEST: The lungs are somewhat expanded without acute pneumonic process. There is a 6 mm calcified nodule left lung apex image 111/5, several small 2 mm nodules in left upper lobe, axial image 85 through 90/5. More 2 mm nodules are seen in the right upper lobe on axial image 110/5, 119/5. There is a 2 mm nodule visualized in right middle lobe, axial image 261/5. Mild atelectatic changes are seen in both basal segments likely secondary to pleural effusion or thickening. There are mild atelectatic changes in the lingula. The heart size is normal. There is a right jugular central catheter with tip in the SVC. No abnormal mediastinal lymph nodes seen. The great vessels are normal caliber. Central trachea and the bronchi was widely patent. The thyroid lobes appears symmetrical and normal. There is minimal left posterior pleural thickening along the superior segment left lower lobe. Also visualized is dependent pleural effusion/thickening in both lung bases. No abnormal lymph nodes seen in the axilla. There is a spiculated-appearing lesion in the right breast measuring 1.2 x 6 1.8 cm. There is mild right breast skin thickening. Imaging through the upper abdomen reveals visualized liver, spleen, pancreas and bilateral adrenal glands are unremarkable. Bone windows reveal no lytic or sclerotic process. There is mild spondylosis. There are mild degenerative disc changes in mid and lower dorsal spine. ABDOMEN AND PELVIS: The liver is normal size, shape and density. No intrahepatic ductal subluxation seen. There is a 5 mm hypodensity in the left hepatic lobe, stable. There is dependent hyperdense sludge seen within the gallbladder. Radiopaque gallstones cannot be excluded. No wall thickening seen. Visualized spleen, pancreas and bilateral adrenal glands are unremarkable. Both kidneys are normal size, shape and position. There is a 1 mm punctate radiopaque calculi lower pole right kidney. No additional radiopaque calculi seen. There is no hydronephrosis. There is bilateral perinephric stranding. The abdominal aorta is normal caliber without dilation. No abnormal retroperitoneal pelvic lymph nodes seen. There is scattered stool and gas seen throughout the colon without distention. The small bowel loops are normal caliber. Appendix appears normal. There is mild haziness in the right paracolic gutter. Appendix is not visualized with certainty. No free air or free fluid seen. There is anterior abdominal wall midline hernia with anterior wall thickening. Imaging through the pelvis reveals undistended bladder with a So catheter in place. No inguinal hernia. No free fluid. Bone windows reveal no lytic process. There is bilateral L4-L5 and L5-S1 facet joint arthropathy. There is grade 1 anterolisthesis L5 over S1 with vacuum disc phenomena L5-S1 and L1-L2 disc levels. CT/CT abdomen pelvis wo con IMPRESSION: Multiple bilateral pulmonary nodules measuring noncalcified 2 mm nodules and 6 mm calcified nodules. No abnormal mediastinal lymph nodes. Right breast spiculated lesion with mild anterior skin thickening. Correlate with clinical exam. Bibasilar minimal pleural effusion/thickening. Nonobstructive radiopaque calculi lower pole right kidney. There is bilateral hydronephrosis. Hyperdense gallbladder sludge. Cannot exclude small stones.
--- NOTE | ~2021-03-09 | XR_ITS ---
EXAMINATION: XR CHEST CLINICAL INFORMATION: Chest pain COMPARISON: Previous chest x-ray most recent December 2020 TECHNIQUE: Frontal view of the chest was obtained. FINDINGS: The cardiac silhouette is upper normal in size but stable. The thoracic aorta is tortuous but stable. Hilar and mediastinal contours are otherwise unremarkable. The lung volumes are low. There is an 8 mm dense left upper lobe nodule that is stable that probably represents a calcified granuloma. The lungs are otherwise clear. There is no pleural effusion or pneumothorax. There are degenerative changes of the spine. XR/XR chest 1V IMPRESSION: No evidence for acute disease in the chest.
--- NOTE | ~2021-03-09 | NM_ITS ---
EXAMINATION: NM LUNG IMAGE PERFUSION CLINICAL INFORMATION: Chest pain. Rule out PE. COMPARISON: None TECHNIQUE: Following intravenous administration of 4 mCi of 99m technetium MAA, imaging of both lungs were obtained in multiple projections. FINDINGS: There is normal perfusion seen to the entire right lung. Only minimal perfusion seen in left upper lung no perfusion seen in the left midlung or lower lobe suggestive of high probability for PE. NM/NM pul perfusion IMPRESSION: High probability for PE with absent perfusion in the entire left lower lobe, lingula and part of the left upper lobe.
--- NOTE | ~2021-03-09 | XR_ITS ---
EXAMINATION: PORTABLE CHEST 1 VIEW CLINICAL INFORMATION: R IJ place . COMPARISON: 03/09/2021 earlier today. TECHNIQUE: Portable frontal view of the chest was obtained. FINDINGS: Lungs are mildly hypoexpanded. There has been interval placement of a right IJ central venous catheter whose tip overlies the expected cavoatrial junction. No superimposed focal infiltrate, effusion, edema, or pneumothorax. Calcified granuloma again noted in the left lung apex. Cardiac silhouette within normal limits for size with a calcified aorta. Degenerative changes in the spine XR/XR chest 1V IMPRESSION: New right IJ central venous catheter tip overlying the expected cavoatrial junction. No pneumothorax.
--- NOTE | ~2021-03-09 | US_ITS ---
EXAMINATION: US VENOUS ULTRASOUND WITH DOPPLER LOWER EXTREMITY, BILATERAL CLINICAL INFORMATION: Acute PE. Rule out DVT. COMPARISON: Previous bilateral lower extremity venous ultrasound 12/20/2020 TECHNIQUE: Ultrasound of the deep veins is performed from the hip to the calf with compression sonography and color and pulse Doppler assessment. Spectral analysis with color-flow imaging is performed. FINDINGS: RIGHT: There is thrombus seen in the right common femoral, superficial femoral and popliteal and posterior tibial veins. The right peroneal vein is not well visualized. LEFT: There is thrombus seen in the left popliteal, posterior tibial and peroneal veins. The left common femoral and superficial femoral veins are patent. US/US venous duplex LE BI IMPRESSION: Bilateral DVT.
--- NOTE | 2021-03-09 10:40 | ECG_ITS ---
Test Reason : WEAKNESS Blood Pressure : / mmHG Vent. Rate : 090 BPM Atrial Rate : 090 BPM P-R Int : 120 ms QRS Dur : 076 ms QT Int : 396 ms P-R-T Axes : 035 -33 -02 degrees QTc Int : 484 ms Normal sinus rhythm Left axis deviation Abnormal ECG When compared with ECG of 19-JAN-2021 00:23, T wave inversion now evident in Inferior leads Referred By: Jasbir Adams Electronically Signed By:FAHAD CALHOUN MD
--- NOTE | 2021-03-09 10:47 | ED_ITS ---
HPI - Altered Mental Status General Chief Complaint: Failure to Thrive Stated Complaint: LETHARGY,WEAKNESS,BP 99/66 Time Seen by Provider: 03/09/21 10:36 Source: family and EMS History of Present Illness HPI narrative: this is a 75 years old of female presented to the emergency room because of lethargy since yesterday. Upon EMS arrival she was found hypotensive she was started with IV fluid the in the field. Patient as history of dementia she is unable to give any history. I spoke with the son with son thattell me that she has not been eating and drinking. There is no fever, no vomiting no diarrhea complaint: altered mental status and decreased responsiveness Onset (ago): day(s) (1) Timing confirmed by: family member Severity: moderate Consistency of symptoms: constant Context: unknown Related Data Home Medications Medication Instructions Recorded Confirmed anastrozole 1 mg tablet 1 mg PO DAILY 01/03/21 02/28/21 lisinopril 40 mg tablet 40 mg PO DAILY 01/03/21 02/28/21 memantine 28 mg capsule 28 mg PO DAILY 01/03/21 02/28/21 sprinkle,extended release 24hr metoprolol tartrate 50 mg tablet 50 mg PO BID 01/03/21 02/28/21 amlodipine 5 mg PO DAILY 01/14/21 02/28/21 aspirin 81 mg PO DAILY 01/14/21 02/28/21 Previous Rx's Medication Instructions Recorded acetaminophen [Tylenol Extra 1,000 mg PO QID PRN #14 tab 12/29/20 Strength] atorvastatin 40 mg PO BEDTIME #30 tab 01/19/21 Allergies Allergy/AdvReac Type Severity Reaction Status Date / Time No Known Allergies Allergy Verified 02/28/21 13:08 Review of Systems Review of Systems: Yes all other systems are reviewed and are negative Cardiovascular: Cardiovascular: Reports no additional cardiovascular complaints, Denies chest pain and Denies chest pain with activity Respiratory: Respiratory: Reports no additional respiratory complaints Neurologic: Reports as per [facility] Past Medical History Attestation statement: The following information was validated with the patient. Medical History Facial droop Left hemiparesis Thyroid nodule Ventral hernia Family History Family History Father No problems noted. Mother No problems noted. Social History Social History Household Members: None Housing: Apartment Housing Other:: living with others Do you presently have visiting nurse or other home services: No Unable to assess alcohol history related to: Unknown Alcohol intake: never Patient Tobacco Use Status: Former Tobacco user Tobacco use type: Cigarette e-Cigarette/Vaping Use: Never Used Second Hand Smoke Exposure: No Use of substances other than those prescribed or required for medical reasons: No Advance Directives: Yes Advance Directives Information Provided: Yes Advance Directives on File: No service: No Current occupational status: retired Physical Exam Vital Signs: Vital Signs: Last Vital Signs Temp 97.9 F 03/09/21 13:59 Pulse 106 H 03/09/21 16:02 Resp 22 H 03/09/21 13:59 BP 100/71 03/09/21 16:02 Pulse Ox 97 03/09/21 13:59 Body Mass Index 25.1 Const: Other: patient is awake and alert in not acute distress General: comfortable HENMT: Head: Yes normal to inspection Eyes: General: appearance normal, both eyes and all related structures Neck: Neck: Yes normal visual inspection, Yes full ROM and Yes no lymphadenopathy Chest: Chest palpation & inspection: normal inspection of the chest Resp: Auscultation: clear to auscultation bilaterally Cardio: Jugular venous distension: no JVD Rate: regular rate GI: Inspection: Yes normal to inspection Palpation (GI): Soft to palpation, nontender and no guarding Skin: General skin exam: no rashes or lesions noted, elasticity normal and turgor normal Neuro: General: other ( she is lethargic she follows simple command she is no verbal as baseline) Cranial nerves: Yes CN's II-XII intact bilaterally Course Reevaluation(s) Reevaluation #1: patient continued to be hypotensive despite 3 L of normal saline at this time we will page of the ICU attending. I do think that the etiology of the hypotension is is due to volume depletion Time: 16:41 Reevaluation #2: patient was seen by the medical reception specialist she was accepted to the intensive care unit. Again I do not think a she has sepsis syndrome a because that she is afebrile he has a normal white count she has a normal lactic acid and family report poor p.o. intake for few days unable to take any fluids. MDM - Altered Mental Status Lab Data Result diagrams: 03/09/21 12:47 03/09/21 12:47 Labs: Lab Results 03/09/21 03/09/21 03/09/21 Range/Units 12:06 12:47 12:47 WBC 13.7 H (4.8-10.8) X10*3/uL RBC 4.66 (4.20-5.50) X10*6/uL Hgb 12.4 (12.0-16.0) g/dl Hct 39.7 (37-47) % MCV 85.2 (80-98) fL MCH 26.6 L (27.0-33.0) pg MCHC 31.2 (31.0-35.0) g/dl RDW 16.1 H (11.0-16.0) % Plt Count TNP MPV 11.4 (9.4-12.3) fL Immature Gran % (Auto) 0.6 H (0.0-0.4) % Neut % (Auto) 83.0 H (45-73) % Lymph % (Auto) 9.5 L (20-40) % [place] % (Auto) 6.6 (2-11) % Eos % (Auto) 0.2 (0-4) % Baso % (Auto) 0.1 (0-2) % Lymph # (Auto) 1.3 (1.2-4.9) X10*3/uL [place] # (Auto) 0.9 (0.1-1.2) X10*3/uL Eos # (Auto) 0.0 (0.0-0.4) X10*3/uL Baso # (Auto) 0.0 (0.0-0.2) X10*3/uL Abs Immat Gran (auto) 0.08 H (0.00-0.03) X10*3/uL Absolute Neuts (auto) 11.4 H (2.0-8.3) X10*3/uL Absolute Nucleated RBC 0.000 (0.0-0.012) X10*3/uL Nucleated RBC % (auto) 0.0 (0.0-0.2) /100WBC Smear Tech's Comments VERIFIED PT 14.3 H (10.8-13.0) SEC INR 1.2 H (0.9-1.1) D-Dimer NG/ML Sodium (135-145) mmol/L Potassium (3.3-5.1) mmol/L Chloride (96-108) mmol/L Carbon Dioxide (22-29) mmol/L Anion Gap (12-20) BUN (9-16) mg/dL Creatinine (0.5-1.4) mg/dL Estim Creat Clear Calc Estimated GFR Random Glucose (60-115) mg/dL Lactic Acid (0.5-2.0) mmol/L Calcium (8.4-10.2) mg/dL Total Bilirubin (0.0-1.0) mg/dL AST (5-31) U/L ALT (0-31) U/L Alkaline Phosphatase (39-117) U/L Troponin I High Sens (<3.5-17.0) ng/L B-Natriuretic Peptide (<100) pg/mL Total Protein (6.5-8.0) g/dL Albumin (3.5-5.0) g/dL Urine Color YELLOW Urine Appearance CLOUDY Urine pH 6.0 (5.0-8.0) Ur Specific [place] >= 1.030 H (1.005-1.025) Urine Protein 1+ H (NEG-TRACE) MG/DL Urine Glucose (UA) NEG (NEG) MG/DL Urine Ketones 5 (NEG) MG/DL Urine Blood TRACE (NEG) Urine Nitrite NEG (NEG) Ur Leukocyte Esterase 3+ H (NEG) Urine RBC 1-4 (0) /HPF Urine WBC TNTC H (0-4) /HPF Urine WBC Clumps NOTED Ur Squamous Epith Cells NONE /LPF Urine Bacteria 4+ /LPF 03/09/21 03/09/21 03/09/21 Range/Units 12:47 12:47 12:47 WBC (4.8-10.8) X10*3/uL RBC (4.20-5.50) X10*6/uL Hgb (12.0-16.0) g/dl Hct (37-47) % MCV (80-98) fL MCH (27.0-33.0) pg MCHC (31.0-35.0) g/dl RDW (11.0-16.0) % Plt Count MPV (9.4-12.3) fL Immature Gran % (Auto) (0.0-0.4) % Neut % (Auto) (45-73) % Lymph % (Auto) (20-40) % [place] % (Auto) (2-11) % Eos % (Auto) (0-4) % Baso % (Auto) (0-2) % Lymph # (Auto) (1.2-4.9) X10*3/uL [place] # (Auto) (0.1-1.2) X10*3/uL Eos # (Auto) (0.0-0.4) X10*3/uL Baso # (Auto) (0.0-0.2) X10*3/uL Abs Immat Gran (auto) (0.00-0.03) X10*3/uL Absolute Neuts (auto) (2.0-8.3) X10*3/uL Absolute Nucleated RBC (0.0-0.012) X10*3/uL Nucleated RBC % (auto) (0.0-0.2) /100WBC Smear Tech's Comments PT (10.8-13.0) SEC INR (0.9-1.1) D-Dimer NG/ML Sodium 141 (135-145) mmol/L Potassium 5.4 H (3.3-5.1) mmol/L Chloride 110 H (96-108) mmol/L Carbon Dioxide 19 L (22-29) mmol/L Anion Gap 17 (12-20) BUN 87 H* D (9-16) mg/dL Creatinine 5.22 H* (0.5-1.4) mg/dL Estim Creat Clear Calc 7.7 Estimated GFR 8 Random Glucose 107 (60-115) mg/dL Lactic Acid 1.9 (0.5-2.0) mmol/L Calcium 8.1 L D (8.4-10.2) mg/dL Total Bilirubin 0.9 (0.0-1.0) mg/dL AST 37 H D (5-31) U/L ALT 25 (0-31) U/L Alkaline Phosphatase 78 (39-117) U/L Troponin I High Sens 1526.0 H* (<3.5-17.0) ng/L B-Natriuretic Peptide (<100) pg/mL Total Protein 6.3 L (6.5-8.0) g/dL Albumin 3.2 L (3.5-5.0) g/dL Urine Color Urine Appearance Urine pH (5.0-8.0) Ur Specific [place] (1.005-1.025) Urine Protein (NEG-TRACE) MG/DL Urine Glucose (UA) (NEG) MG/DL Urine Ketones (NEG) MG/DL Urine Blood (NEG) Urine Nitrite (NEG) Ur Leukocyte Esterase (NEG) Urine RBC (0) /HPF Urine WBC (0-4) /HPF Urine WBC Clumps Ur Squamous Epith Cells /LPF Urine Bacteria /LPF 03/09/21 03/09/21 Range/Units 15:25 15:25 WBC (4.8-10.8) X10*3/uL RBC (4.20-5.50) X10*6/uL Hgb (12.0-16.0) g/dl Hct (37-47) % MCV (80-98) fL MCH (27.0-33.0) pg MCHC (31.0-35.0) g/dl RDW (11.0-16.0) % Plt Count MPV (9.4-12.3) fL Immature Gran % (Auto) (0.0-0.4) % Neut % (Auto) (45-73) % Lymph % (Auto) (20-40) % [place] % (Auto) (2-11) % Eos % (Auto) (0-4) % Baso % (Auto) (0-2) % Lymph # (Auto) (1.2-4.9) X10*3/uL [place] # (Auto) (0.1-1.2) X10*3/uL Eos # (Auto) (0.0-0.4) X10*3/uL Baso # (Auto) (0.0-0.2) X10*3/uL Abs Immat Gran (auto) (0.00-0.03) X10*3/uL Absolute Neuts (auto) (2.0-8.3) X10*3/uL Absolute Nucleated RBC (0.0-0.012) X10*3/uL Nucleated RBC % (auto) (0.0-0.2) /100WBC Smear Tech's Comments PT (10.8-13.0) SEC INR (0.9-1.1) D-Dimer 7890 NG/ML Sodium (135-145) mmol/L Potassium (3.3-5.1) mmol/L Chloride (96-108) mmol/L Carbon Dioxide (22-29) mmol/L Anion Gap (12-20) BUN (9-16) mg/dL Creatinine (0.5-1.4) mg/dL Estim Creat Clear Calc Estimated GFR Random Glucose (60-115) mg/dL Lactic Acid (0.5-2.0) mmol/L Calcium (8.4-10.2) mg/dL Total Bilirubin (0.0-1.0) mg/dL AST (5-31) U/L ALT (0-31) U/L Alkaline Phosphatase (39-117) U/L Troponin I High Sens 1094.8 H* (<3.5-17.0) ng/L B-Natriuretic Peptide 1219 H (<100) pg/mL Total Protein (6.5-8.0) g/dL Albumin (3.5-5.0) g/dL Urine Color Urine Appearance Urine pH (5.0-8.0) Ur Specific [place] (1.005-1.025) Urine Protein (NEG-TRACE) MG/DL Urine Glucose (UA) (NEG) MG/DL Urine Ketones (NEG) MG/DL Urine Blood (NEG) Urine Nitrite (NEG) Ur Leukocyte Esterase (NEG) Urine RBC (0) /HPF Urine WBC (0-4) /HPF Urine WBC Clumps Ur Squamous Epith Cells /LPF Urine Bacteria /LPF ECG Data ECG #1: Attestation: I personally reviewed and interpreted this ECG as follows: Pacemaker model: normal sinus rhythm rate 90 no ischemic changes Critical Care Time Critical Care Time Critical Care Time: Yes Total Critical Care Time: 60 Attestation: 45 minutes was spent caring for the patient was speaking with the family speaking with the medical reception specialist Discharge Plan Discharge Clinical Impression: Hypotension, Acute renal failure Patient Disposition: Admitted As Inpatient Interventions: Admission Worksheet (ED) Last Done: 03/09/21 16:11
[2021-03-09] MEDS: 0.9 % Sodium Chloride 1,000 ML 999 ML IVCONT ×5 (10:53→14:02)
[2021-03-09 12:16] LABS: Glucose Urine UA NEG (NEG); Leukocyte Esterase Urine 3+ (NEG); Nitrite Urine NEG (NEG); Specific Gravity - Urine >= 1.030 (1.005-1.025); UACC Culture Trigger YES; Urine Blood TRACE (NEG); Urine Ketones 5 MG/DL (NEG); Urine Protein 1+ MG/DL (NEG-TRACE)
[2021-03-09 12:17] LABS: Appearance Urine CLOUDY; Color Urine YELLOW
[2021-03-09 12:24] LABS: WBC Clumps Urine NOTED
[2021-03-09 12:25] LABS: Bacteria Urine 4+ /LPF; UACC CULT YES; WBC Urine TNTC /HPF (0-4)
--- NOTE | 2021-03-09 12:53 | PC.NURSE ---
pt placed in [facility], vs 76/39-104, md aware. asymptomatic..md aware.
[2021-03-09 13:08] LABS: Basophils Percent Auto 0.1 % (0-2); Eosinophils Percent Auto 0.2 % (0-4); Hematocrit 39.7 % (37-47); Hemoglobin 12.4 g/dl (12.0-16.0); Imm Gran Abs Auto 0.08 X10*3/uL (0.00-0.03); Imm Gran Pct Auto 0.6 % (0.0-0.4); Lymphocytes Absolute Auto 1.3 X10*3/uL (1.2-4.9); Lymphocytes Percent Auto 9.5 % (20-40); MANUAL DIFF FLAG SCAN; Mean Corpuscular HGB Conc 31.2 g/dl (31.0-35.0); Mean Corpuscular Hemoglobin 26.6 pg (27.0-33.0); Mean Corpuscular Volume 85.2 fL (80-98); Mean Platelet Volume 11.4 fL (9.4-12.3); Monocytes Absolute Auto 0.9 X10*3/uL (0.1-1.2); Monocytes Percent Auto 6.6 % (2-11); Neutrophils Absolute Auto 11.4 X10*3/uL (2.0-8.3); PLT CLUMP 1; Red Blood Count 4.66 X10*6/uL (4.20-5.50); Red Cell Distribution Width 16.1 % (11.0-16.0); SCAN SMEAR FLAG 1
[2021-03-09 13:12] LABS: INTERNATIONAL NORM RATIO 1.2 (0.9-1.1); Prothrombin Time 14.3 SEC (10.8-13.0)
[2021-03-09 13:13] LABS: White Blood Count 13.7 X10*3/uL (4.8-10.8)
--- NOTE | 2021-03-09 13:14 | PC.NURSE ---
2nd iv inserted #18 to r ac via ultrasound by drd. breaux. pt has #20 to l lower forearm placed by ems prior to arrival to ed.
--- NOTE | 2021-03-09 13:15 | PC.NURSE ---
3rd liter of ns initated.
--- NOTE | 2021-03-09 13:17 | PC.NURSE ---
ns 3rd liter placed on pressure bag, pt's vs 80/50 98, pt appears to be asymptomatic at this time, no change in mentation, md aware. pt remains in (bed) [place] position.
[2021-03-09 13:34] LABS: Lactic Acid 1.9 mmol/L (0.5-2.0)
[2021-03-09 13:36] LABS: SLIDE REVIEW VERIFIED
[2021-03-09 13:45] LABS: Alanine Aminotransferase 25 U/L (0-31); Albumin Level 3.2 g/dL (3.5-5.0); Alkaline Phosphatase 78 U/L (39-117); Anion Gap 17 (12-20); Aspartate Amino Transferase 37 U/L (5-31); Bilirubin Total 0.9 mg/dL (0.0-1.0); Blood Urea Nitrogen 87 mg/dL (9-16); Calcium 8.1 mg/dL (8.4-10.2); Carbon Dioxide 19 mmol/L (22-29); Chloride 110 mmol/L (96-108); Creatinine Clr Calc Pharmacy 7.7; Estimated Glomerular Filt Rate 8; Glucose Random 107 mg/dL (60-115); Potassium 5.4 mmol/L (3.3-5.1); Sodium 141 mmol/L (135-145); Total Protein 6.3 g/dL (6.5-8.0)
--- NOTE | 2021-03-09 14:35 | PC.NURSE ---
[facility] (ICU) AT BEDSIDE, PT/SON AWARE OF PLAN OF CARE FOR ADMISSION TO HOSP.
[2021-03-09] MEDS: Hydrocortisone Sod Succ/PF 100 MG VIAL IVPUSH (14:42)
--- NOTE | 2021-03-09 15:21 | P.HPCC_ITS ---
History of Present Illness Date of Service: 03/09/21 Mrs. Aashish Freeman is being admitted to the ICU this afternoon bec of hypotension w right heart failure. History is from the patient's son who is at the bedside in the ED with the sina pyle. My understanding is that the patient lives with him and he is her primary caregiver. The patient is a 75 yo F with PMHx of stroke about ten years ago that left her with left hemiparesis and difficult speech (unclear whether this is aphasia, dysarthria, or both). He also tells me that she has an abdominal wall hernia. They have seen Dr. Gudino for this and he has counseled them that at this time the risk is too high, unless the hernia becomes symptomatic. The patient's labs indicate that she also has CKD. The patient was brought in by ambulance to the ED this morning because of le thargy since yesterday, and she has not been eating or drinking. Upon EMS arrival at the scene, she was found hypotensive. The patient's son denied fever, vomiting, or diarrhea. On admission to the ED, the patient was awake and alert and in no acute distress. She appeared comfortable. She seem to follow simple commands. Temperature was 99.7 degrees. Heart rate was 97, blood pressure was 82/47, respiratory rate was 18-24, and the sat was 98-100% on room air. The general physical exam was reportedly unremarkable. Labs in the ED were notable for a white count of 13.7 (baseline 11), hemoglobin 12.4, normal coags, BUN and creatinine of 87/5.2 (baseline 41/1.5). Bicarb is 19, and potassium is 5.4. LFTs were unremarkable, and the albumin was 3.2. Lactate was 1.9. Troponin was 1526. EKG was unremarkable. Chest x-ray was unremarkable. The patient was given 4 L of normal saline without significant change in her blood pressure. I was called, and want to see the patient in the ED. I interviewed the son, and examined the patient. The patient was fully awake and aware. She does not talk much. Current mental status appears to be her baseline, from what the son tells me. She looks thoroughly non-toxic, and other than her neurologic deficits, looks basically well. Blood pressure was 86/53. She has prominent JVD lying flat. Abdomen is benign. She has some contracture of her left UE, and possibly LE. No edema or obvious extremity swelling. ECHOCARDIOGRAM for hemodynamic monitoring. Done at the bedside by me: Image quality: Good. Findings: 1. Moderate LVH. 2. LV cavity size is small and almost pancaked shaped. EF at least 60%. No RWMA. 3. RV is dilated, with RV:LV cavity ratio at least 2.0. Septum is flattened and maybe even bowed into the LV in some views. 4. RA is very large. 5. AV not well visualized. 6. Mitral valve normal morphology, with trace MR by color chary. 7. 1-2+ TR by color chary, with CWD jet measuring at least 3.0m/sec. Gradient of 39mm. 8. IVC dilated with minimal inspiratory collapse. Measured 2.7cm. Estimated CVP 15mm. RVSP estimate at least 51mm. IMPRESSION: 1. S/P previous right CVA with significant residual deficit. Not clear if she has aphasia, severe dysarthria, or possibly dementia. 2. Gross right heart failure. Can?t say for sure whether this is acute or chronic, but the fact is that she has no edema or pleural effusions. So it would seem more likely acute. The question is why. PE would be the most obvious cause, but there is no history, or new risk factor (AFAIK), and most particularly, it would seem to be almost impossible if not very improbable to have massive PE (i.e. PE with circulatory compromise) without at least some degree of hypoxemia +/- respiratory distress. She has neither. 3. Hypotension. Most likely 2? acute right heart failure. Given the pancaked shape of her LV and gross underfilling, I?m surprised that her lactate is not elevated. Her echo indicates that she is more than full. Further fluids are contraindicated. 4. Elevated troponin. Would be c/w PE. Could theoretically be 2? right sided ACS, but with absolutely no changes on EKG, that?s unlikely. 4. ID: Her WBC is mildly elevated and she is hypotensive, but other than that, no strong evidence of sepsis, in that her mental status and resp pattern are normal (Quick-SOFA score 1), and she looks thoroughly nontoxic. I see no indication for any abx or further fluids. Given the most likely dx of PE, we will send her for perfusion scan. I?ve also ordered BNP and repeat trop, (if BNP was normal, that would suggest chronic RHF; if trop is higher, that would suggest ACS or worsening circulatory compromise from PE), and DDimer and duplex scan of her legs. ADDENDUM at 8PM: Perfusion scan showed ?normal perfusion seen to the entire right lung. Only minimal perfusion seen in left upper lung no perfusion seen in the left midlung or lower lobe, suggestive of high probability for PE.? DDimer came back at 7890. BNP was 1219. Repeat troponin was down to 1094, and repeat BUN/creatinine was down to 75/4.2. Duplex scan of her legs showed bilateral DVT. IMPRESSION: Hypotension and acute right heart failure are secondary to massive PE. She has bilateral DVT in her legs. She is stable in the ICU with blood pressure about 100/70 on Levophed 0.05 mcg. In my opinion, the patient would have been best served by catheter directed thrombolysis with EKOS, bec give her age and frailty, I think she?s at high risk for a bleed from systemic thrombolysis. However EKOS is available locally only at [facility]. I called invasive Radiology and the ICU there, and they had no beds available in their ICU. I then called over to [facility]. They do offer catheter directed thrombolysis but only during the day. The invasive radiologist there suggested systemic thrombolysis tonight, and if her condition deteriorates, they would take her tomorrow morning for catheter directed thrombolysis. Given that she has massive PE with hypotension req pressors, she is at high mortality risk. That ?trumps? her other risk factors at this time. Discussed this with pharmacy and with the patient?s son. We will give her half dose tPA followed by heparin. (No indication for a filter.) Critical care time: 2.5+ hrs. [facility] Past Medical History Medical History Facial droop Left hemiparesis Thyroid nodule Ventral hernia Family History Family History Father No problems noted. Mother No problems noted. Social History Social History Household Members: Family Household Members Other:: son Housing: House Housing Other:: living with others Do you presently have visiting nurse or other home services: No Unable to assess alcohol history related to: Unknown Alcohol intake: never Patient Tobacco Use Status: Former Tobacco user Tobacco use type: Cigarette Smoked in Last 30 Days: No e-Cigarette/Vaping Use: Former Use Patient Interested in Nicotine Replacement: No Patient Given Instructions on How to Stop Smoking: No Second Hand Smoke Exposure: No Use of substances other than those prescribed or required for medical reasons: No Currently Displaying Signs/Symptoms of Drug Intoxication Withdrawal: No Any prior treatment program specific to substance use: No Have you been hit, kicked, punched, or otherwise hurt by someone within the past year? If so, by whom?: No Do you feel safe in your current relationship?: No Current Relationship Is there a partner from a previous relationship who is making you feel unsafe now?: No Are you made to feel afraid or neglected: No Worship Healthcare Practices: [employer] Advance Directives: Yes Advance Directives Information Provided: Yes Advance Directives on File: No Advance Directives Date on File: 03/09/21 Do you have thoughts of harming others: None Do you have a plan to hurt others: No Plan Recently lost weight without trying: Unsure How much weight loss: Unsure Eating poorly because of decreased appetite: Yes Nutrition screen score: 5 Nutrition Risks: Poor intake 0-25% >4 days Patient : No : No Poor oral hygiene: No service: No Current occupational status: retired [employer] Allergies Allergy/AdvReac Type Severity Reaction Status Date / Time No Known Allergies Allergy Verified 02/28/21 13:08 Home Medications Medication Instructions Recorded Confirmed Last Taken Type anastrozole 1 mg tablet 1 mg PO DAILY 01/03/21 03/09/21 01/18/21 History lisinopril 40 mg tablet 40 mg PO DAILY 01/03/21 03/09/21 01/18/21 History memantine 28 mg capsule 28 mg PO DAILY 01/03/21 03/09/21 01/18/21 History sprinkle,extended release 24hr metoprolol tartrate 50 mg tablet 50 mg PO BID 01/03/21 03/09/21 01/18/21 History amlodipine 5 mg PO DAILY 01/14/21 03/09/21 01/18/21 History Physical Exam Vital Signs: Vital Signs: Last Vital Signs Temp 97.9 F 03/09/21 13:59 Pulse 109 H 03/09/21 13:59 Resp 22 H 03/09/21 13:59 BP 85/56 L 03/09/21 13:59 Pulse Ox 97 03/09/21 13:59 Body Mass Index 25.1 Results Labs CBC and Chem 7: 03/09/21 19:58 03/09/21 15:25 Labs: Laboratory Results - last 24 hr 03/09/21 03/09/21 03/09/21 12:06 12:47 12:47 MCV 85.2 MCH 26.6 L MCHC 31.2 RDW 16.1 H Plt Count TNP MPV 11.4 Immature Gran % (Auto) 0.6 H Neut % (Auto) 83.0 H Lymph % (Auto) 9.5 L [place] % (Auto) 6.6 Eos % (Auto) 0.2 Baso % (Auto) 0.1 Lymph # (Auto) 1.3 [place] # (Auto) 0.9 Eos # (Auto) 0.0 Baso # (Auto) 0.0 Abs Immat Gran (auto) 0.08 H Absolute Neuts (auto) 11.4 H Absolute Nucleated RBC 0.000 Nucleated RBC % (auto) 0.0 Smear Tech's Comments VERIFIED PT 14.3 H INR 1.2 H Anion Gap Estim Creat Clear Calc Estimated GFR Random Glucose Lactic Acid Calcium Total Bilirubin AST ALT Alkaline Phosphatase Troponin I High Sens Total Protein Albumin Urine Color YELLOW Urine Appearance CLOUDY Urine pH 6.0 Ur Specific [place] >= 1.030 H Urine Protein 1+ H Urine Glucose (UA) NEG Urine Ketones 5 Urine Blood TRACE Urine Nitrite NEG Ur Leukocyte Esterase 3+ H Urine RBC 1-4 Urine WBC TNTC H Urine WBC Clumps NOTED Ur Squamous Epith Cells NONE Urine Bacteria 4+ 03/09/21 03/09/21 03/09/21 12:47 12:47 12:47 MCV MCH MCHC RDW Plt Count MPV Immature Gran % (Auto) Neut % (Auto) Lymph % (Auto) [place] % (Auto) Eos % (Auto) Baso % (Auto) Lymph # (Auto) [place] # (Auto) Eos # (Auto) Baso # (Auto) Abs Immat Gran (auto) Absolute Neuts (auto) Absolute Nucleated RBC Nucleated RBC % (auto) Smear Tech's Comments PT INR Anion Gap 17 Estim Creat Clear Calc 7.7 Estimated GFR 8 Random Glucose 107 Lactic Acid 1.9 Calcium 8.1 L D Total Bilirubin 0.9 AST 37 H D ALT 25 Alkaline Phosphatase 78 Troponin I High Sens 1526.0 H* Total Protein 6.3 L Albumin 3.2 L Urine Color Urine Appearance Urine pH Ur Specific [place] Urine Protein Urine Glucose (UA) Urine Ketones Urine Blood Urine Nitrite Ur Leukocyte Esterase Urine RBC Urine WBC Urine WBC Clumps Ur Squamous Epith Cells Urine Bacteria Imaging Radiologist's Impressions: Impressions Chest X-Ray 03/09/21 10:40 IMPRESSION: No evidence for acute disease in the chest. Critical Care Time Critical Care Time (minutes): 150
[2021-03-09] MEDS: Lidocaine HCl 1 % MPF 5 ML VIAL INFILTRATI (15:39)
--- NOTE | 2021-03-09 15:54 | PC.NURSE ---
per beauty culturist, increase to 0.1mcg/kg/hr, then transport to [facility] med
--- NOTE | 2021-03-09 16:22 | PC.NURSE ---
Son took home all belongins.
[2021-03-09 16:29] LABS: B Type Natriuretic Peptide 1219 pg/mL (<100); Troponin-I High Sensitivity 1094.8 ng/L (<3.5-17.0)
[2021-03-09 16:34] LABS: D Dimer 7890 NG/ML
[2021-03-09 16:46] LABS: Alanine Aminotransferase 21 U/L (0-31); Albumin Level 2.6 g/dL (3.5-5.0); Alkaline Phosphatase 70 U/L (39-117); Anion Gap 15 (12-20); Aspartate Amino Transferase 34 U/L (5-31); Blood Urea Nitrogen 75 mg/dL (9-16); Calcium 7.2 mg/dL (8.4-10.2); Carbon Dioxide 16 mmol/L (22-29); Chloride 118 mmol/L (96-108); Creatinine Clr Calc Pharmacy 9.4; Estimated Glomerular Filt Rate 10; Glucose Random 119 mg/dL (60-115); Magnesium 1.8 mg/dL (1.6-2.6); Phosphorus 3.3 mg/dL (2.7-4.5); Potassium 5.3 mmol/L (3.3-5.1); Sodium 144 mmol/L (135-145)
--- NOTE | 2021-03-09 17:13 | PHA.MEDREC ---
med rec complete, spoke with pts son. no recent claim history on most meds but family explained they brought a supply from [place] [facility] Consult ? Medication Reconciliation Pharmacy has completed the medication reconciliation.
[2021-03-09] MEDS: Heparin Sodium,Porcine 5,000 UNIT/ML VIAL 4800 UNIT IVPUSH (18:20)
[2021-03-09 18:50] LABS: COVID-19 Test Negative (Negative)
--- NOTE | 2021-03-09 20:05 | W.PM.CCHP ---
Procedures Date of Service Date of Service: 03/09/21
[2021-03-09 20:10] LABS: Hematocrit 36.7 % (37-47); Hemoglobin 11.6 g/dl (12.0-16.0); Mean Corpuscular HGB Conc 31.6 g/dl (31.0-35.0); Mean Corpuscular Hemoglobin 26.7 pg (27.0-33.0); Mean Corpuscular Volume 84.6 fL (80-98); Platelet Count 290 X10*3/uL (160-400); Red Blood Count 4.34 X10*6/uL (4.20-5.50); Red Cell Distribution Width 16.1 % (11.0-16.0); White Blood Count 15.9 X10*3/uL (4.8-10.8)
[2021-03-09 20:15] LABS: INTERNATIONAL NORM RATIO 1.3 (0.9-1.1); Prothrombin Time 15.3 SEC (10.8-13.0)
[2021-03-09 20:29] LABS: PTT Heparin Drip 126.7 SEC (53-77.9)
[2021-03-09] MEDS: Adenosine 6 MG/2 ML VIAL IVPUSH (20:39)
[2021-03-09] MEDS: Adenosine 6 MG/2 ML VIAL 12 MG IVPUSH (21:09)
--- NOTE | 2021-03-09 22:06 | P.PNCC_ITS ---
Subjective Subjective Date of Service: 03/09/21 Critical Care Time (minutes): 30 Comment: Clinical Precedent to this date: Patient admitted due to pulmonary embolism, bilateral DVT and right heart strain; Negro, RHF due to PE Subjective: Today just prior to placing the patient is central line for tPA administration subsequent heparin, the patient was noted to be in SVT with a heart rate as high as 130-140 beats per minute. I wonder if the patient has underlying atrial fibrillation or flutter versus a tachycardia related directly to her PE. Patient is not able to give history given her underlying history of dementia. Focused Review of systems: Unable to perform. Objective VS: 98/58, 130, 24, 99% on room air. General: Alert To person only. Following basic commands. Skin: Intact, no lesions or rash HEENT: Normocephalic, atraumatic, extraocular movements intact, neck is supple, no lymphadenopathy. Buccal mucosa Dry. Throat midline. Cardiac: Tachycardic 130 beats per minute, no murmurs, rubs or gallops. Pulmonary: Poor inspiratory effort, otherwise clear. Abdomen: Protuberant, positive bowel sounds in all 4 quadrants. Soft, nontender, no rebound or guarding. Musculoskeletal: Left upper extremity is contracted and weak apparently from a residual prior stroke. Neurologic: As above, no new focal deficits. Vascular: 2+ pulses upper and lower extremities distally. SIGNIFICANT LABORATORY DATA: reviewed REVIEW OF IMAGES: reviewed EKG REVIEW: Rhythm strip consistent with SVT in the 130s to 140s. Will obtain formal EKG. ASSESSMENT AND PLAN: 1. SVT with HR 130-140 ;ikely underlying flutter as this was breifly noted on monitor ======== Resolved now SR 2. PE and Bilateral DVT ( has underlying hx of L BRCA post partial mastectomy 3. NEGRO due to hypoperfussion 4. Borderline Hyperkalemia 5. Hypoalbuminemia The patient received 2 doses of adenosine 6 mg and 12 mg respectively. After the 2nd dose, the patient's heart rate did stabilize and the SVT broke quickly in 2 atrial flutter with controlled rate in the 90s and subsequently to sinus rhythm as documented by formal EKG which shows normal sinus rhythm ventricular rate 89 beats per minute. No ST elevations, no depressions. There is flattening of T-waves in lead V3. Patient appears to have right heart strain as indicated by elevated troponin and BNP, the possibility of PE is high and the SVTs likely related to the right hip strain. Patient will receive tPA followed by heparin drip 6 hours after administration of tPA. Currently remains hemodynamically stable. Central line placed in the right IJ was performed successfully and without any complications.Labs show improvement of the patient's renal function despite of the fact that we did not rehydrate her, this is likely due to improve perfusion. I will repeat labs tonight. Critical care time used for critical evaluation of this patient, diagnosis, treatment and coordination of care, review her records and documentation TOTAL CRITICAL CARE TIME 60 MIN Patient's care was discussed in detail with Dr. Ramirez. He is aware of all the above as well as the plan of care for this patient. Physical Exam Vital Signs: Vital Signs: Last Vital Signs Temp 99.3 F 03/09/21 20:44 Pulse 121 H 03/09/21 20:44 Resp 24 H 03/09/21 20:44 BP 119/26 L 03/09/21 20:44 Pulse Ox 98 03/09/21 20:30 Body Mass Index 25.1 Objective Data Labs CBC & Chem 7: 03/09/21 19:58 03/09/21 15:25 Labs: Laboratory Results - last 24 hr 03/09/21 03/09/21 03/09/21 12:06 12:47 12:47 WBC 13.7 H RBC 4.66 Hgb 12.4 Hct 39.7 MCV 85.2 MCH 26.6 L MCHC 31.2 RDW 16.1 H Plt Count TNP MPV 11.4 Immature Gran % (Auto) 0.6 H Neut % (Auto) 83.0 H Lymph % (Auto) 9.5 L [place] % (Auto) 6.6 Eos % (Auto) 0.2 Baso % (Auto) 0.1 Lymph # (Auto) 1.3 [place] # (Auto) 0.9 Eos # (Auto) 0.0 Baso # (Auto) 0.0 Abs Immat Gran (auto) 0.08 H Absolute Neuts (auto) 11.4 H Absolute Nucleated RBC 0.000 Nucleated RBC % (auto) 0.0 Smear Tech's Comments VERIFIED PT 14.3 H INR 1.2 H PTT (Heparin Protocol) D-Dimer Sodium Potassium Chloride Carbon Dioxide Anion Gap BUN Creatinine Estim Creat Clear Calc Estimated GFR Random Glucose Lactic Acid Calcium Phosphorus Magnesium Total Bilirubin AST ALT Alkaline Phosphatase Troponin I High Sens B-Natriuretic Peptide Total Protein Albumin Urine Color YELLOW Urine Appearance CLOUDY Urine pH 6.0 Ur Specific [place] >= 1.030 H Urine Protein 1+ H Urine Glucose (UA) NEG Urine Ketones 5 Urine Blood TRACE Urine Nitrite NEG Ur Leukocyte Esterase 3+ H Urine RBC 1-4 Urine WBC TNTC H Urine WBC Clumps NOTED Ur Squamous Epith Cells NONE Urine Bacteria 4+ COVID-19 (PERLA) COVID-19 Clin Com 03/09/21 03/09/21 03/09/21 12:47 12:47 12:47 WBC RBC Hgb Hct MCV MCH MCHC RDW Plt Count MPV Immature Gran % (Auto) Neut % (Auto) Lymph % (Auto) [place] % (Auto) Eos % (Auto) Baso % (Auto) Lymph # (Auto) [place] # (Auto) Eos # (Auto) Baso # (Auto) Abs Immat Gran (auto) Absolute Neuts (auto) Absolute Nucleated RBC Nucleated RBC % (auto) Smear Tech's Comments PT INR PTT (Heparin Protocol) D-Dimer Sodium 141 Potassium 5.4 H Chloride 110 H Carbon Dioxide 19 L Anion Gap 17 BUN 87 H* D Creatinine 5.22 H* Estim Creat Clear Calc 7.7 Estimated GFR 8 Random Glucose 107 Lactic Acid 1.9 Calcium 8.1 L D Phosphorus Magnesium Total Bilirubin 0.9 AST 37 H D ALT 25 Alkaline Phosphatase 78 Troponin I High Sens 1526.0 H* B-Natriuretic Peptide Total Protein 6.3 L Albumin 3.2 L Urine Color Urine Appearance Urine pH Ur Specific [place] Urine Protein Urine Glucose (UA) Urine Ketones Urine Blood Urine Nitrite Ur Leukocyte Esterase Urine RBC Urine WBC Urine WBC Clumps Ur Squamous Epith Cells Urine Bacteria COVID-19 (PER[facility]) COVID-19 Clin Com 03/09/21 03/09/21 03/09/21 15:25 15:25 15:25 WBC RBC Hgb Hct MCV MCH MCHC RDW Plt Count MPV Immature Gran % (Auto) Neut % (Auto) Lymph % (Auto) [place] % (Auto) Eos % (Auto) Baso % (Auto) Lymph # (Auto) [place] # (Auto) Eos # (Auto) Baso # (Auto) Abs Immat Gran (auto) Absolute Neuts (auto) Absolute Nucleated RBC Nucleated RBC % (auto) Smear Tech's Comments PT INR PTT (Heparin Protocol) D-Dimer 7890 Sodium 144 Potassium 5.3 H Chloride 118 H Carbon Dioxide 16 L Anion Gap 15 BUN 75 H Creatinine 4.28 H* Estim Creat Clear Calc 9.4 Estimated GFR 10 Random Glucose 119 H Lactic Acid Calcium 7.2 L D Phosphorus 3.3 Magnesium 1.8 Total Bilirubin 1.0 AST 34 H ALT 21 Alkaline Phosphatase 70 Troponin I High Sens 1094.8 H* B-Natriuretic Peptide 1219 H Total Protein 5.0 L D Albumin 2.6 L Urine Color Urine Appearance Urine pH Ur Specific [place] Urine Protein Urine Glucose (UA) Urine Ketones Urine Blood Urine Nitrite Ur Leukocyte Esterase Urine RBC Urine WBC Urine WBC Clumps Ur Squamous Epith Cells Urine Bacteria COVID-19 (PERLA) COVID-[employer] 03/09/21 03/09/21 03/09/21 18:17 19:58 19:58 WBC 15.9 H RBC 4.34 Hgb 11.6 L Hct 36.7 L MCV 84.6 MCH 26.7 L MCHC 31.6 RDW 16.1 H Plt Count 290 D MPV 11.0 Immature Gran % (Auto) Neut % (Auto) Lymph % (Auto) [place] % (Auto) Eos % (Auto) Baso % (Auto) Lymph # (Auto) [place] # (Auto) Eos # (Auto) Baso # (Auto) Abs Immat Gran (auto) Absolute Neuts (auto) Absolute Nucleated RBC 0.000 Nucleated RBC % (auto) 0.0 Smear Tech's Comments PT 15.3 H INR 1.3 H PTT (Heparin Protocol) 126.7 H* D-Dimer Sodium Potassium Chloride Carbon Dioxide Anion Gap BUN Creatinine Estim Creat Clear Calc Estimated GFR Random Glucose Lactic Acid Calcium Phosphorus Magnesium Total Bilirubin AST ALT Alkaline Phosphatase Troponin I High Sens B-Natriuretic Peptide Total Protein Albumin Urine Color Urine Appearance Urine pH Ur Specific [place] Urine Protein Urine Glucose (UA) Urine Ketones Urine Blood Urine Nitrite Ur Leukocyte Esterase Urine RBC Urine WBC Urine WBC Clumps Ur Squamous Epith Cells Urine Bacteria COVID-19 (PERLA) Negative COVID-19 [employer] Com See Note Quality Stroke Does the patient have a stroke diagnosis?: No VTE Prior VTE?: No VTE Risk Level:: Medical - moderate - high VTE Device Contraindication: N/A - Device Ordered VTE Drug Contraindication: N/A - Med Ordered
[2021-03-09] MEDS: Albumin Human 25 % 100 ML IV ×2 (22:33→23:55)
[2021-03-10] VITALS (21 sets, daily range): BP systolic 101–148; BP diastolic 51–82; PULSE 80–91; RESP 11–25; TEMP 36–37.2; O2SAT 95–100; BMI 25.4
[2021-03-10 03:20] LABS: PTT Heparin Drip 32.2 SEC (53-77.9)
[2021-03-10] MEDS: Heparin Sodium,Porcine/1/2NS 25,000 UNIT/250 ML IV.SOLN 8.44 UNIT IVCONT (04:01)
[2021-03-10] MEDS: Heparin Sodium,Porcine 5,000 UNIT/ML VIAL 4800 UNIT IVPUSH (04:05)
--- NOTE | 2021-03-10 04:13 | PC.NURSE ---
mostly somnolent. awakens to tactile stimulation and becomes agitated slapping at stimulus. speech is muffled and in trinid[place] dialect. she has quite confused when interviewed with the assistance of [employer] consultant earlier in the night. she will sip on water and eat custard with assistance. she has a residual left sided hemiplegia. at 2200 her tpa dose finished. 6 hours later pt is loaded with 4800 units of heparin iv and heparin infusion strated at 14ux/kg/hr. next ptt hd at 1000. resp effort is regular unlabored. lungs cta/diminished. a central line rij tlc has been placed. low dose levophed has been necessary to maintain b/p guidelines. ecg displays sr. earlier in the night pt experiencing sustained runs of svt which were response to adenosine 6 mg x1 and adenosine 12 mg iv x 1. at this moment, her heart rate is in the 80-90 bpm. abdomen round/soft/nontender. harper catheter patent and draining hazy yellow urine. u/o 40-60 ml/hr.
[2021-03-10 05:45] LABS: MANUAL DIFF FLAG NO
[2021-03-10 05:51] LABS: Basophils Percent Auto 0.2 % (0-2); Hematocrit 30.6 % (37-47); Hemoglobin 9.7 g/dl (12.0-16.0); Imm Gran Abs Auto 0.08 X10*3/uL (0.00-0.03); Imm Gran Pct Auto 0.8 % (0.0-0.4); Lymphocytes Absolute Auto 0.7 X10*3/uL (1.2-4.9); Lymphocytes Percent Auto 6.6 % (20-40); Mean Corpuscular HGB Conc 31.7 g/dl (31.0-35.0); Mean Corpuscular Hemoglobin 26.4 pg (27.0-33.0); Mean Corpuscular Volume 83.4 fL (80-98); Mean Platelet Volume 10.7 fL (9.4-12.3); Monocytes Absolute Auto 0.7 X10*3/uL (0.1-1.2); Monocytes Percent Auto 6.5 % (2-11); Neutrophils Absolute Auto 8.8 X10*3/uL (2.0-8.3); Neutrophils Percent Auto 85.9 % (45-73); Platelet Count 195 X10*3/uL (160-400); Red Blood Count 3.67 X10*6/uL (4.20-5.50); Red Cell Distribution Width 15.9 % (11.0-16.0); White Blood Count 10.3 X10*3/uL (4.8-10.8)
[2021-03-10 06:11] LABS: Lactic Acid 0.6 mmol/L (0.5-2.0)
[2021-03-10 06:18] LABS: Alanine Aminotransferase 17 U/L (0-31); Albumin Level 3.5 g/dL (3.5-5.0); Alkaline Phosphatase 59 U/L (39-117); Anion Gap 14 (12-20); Aspartate Amino Transferase 26 U/L (5-31); B Type Natriuretic Peptide 2253 pg/mL (<100); Bilirubin Total 1.2 mg/dL (0.0-1.0); Blood Urea Nitrogen 70 mg/dL (9-16); Calcium 8.3 mg/dL (8.4-10.2); Carbon Dioxide 17 mmol/L (22-29); Chloride 116 mmol/L (96-108); Estimated Glomerular Filt Rate 13; Glucose Random 171 mg/dL (60-115); Phosphorus 4.3 mg/dL (2.7-4.5); Potassium 5.1 mmol/L (3.3-5.1); Sodium 142 mmol/L (135-145); Total Protein 5.8 g/dL (6.5-8.0)
[2021-03-10 06:19] LABS: Troponin-I High Sensitivity 1739.4 ng/L (<3.5-17.0)
[2021-03-10 06:21] LABS: INTERNATIONAL NORM RATIO 1.5 (0.9-1.1); Prothrombin Time 17.7 SEC (10.8-13.0)
[2021-03-10] MEDS: cefTRIAXone sodium 1 GM in 0.9 % Sodium Chloride 50 ML IV (07:19)
--- NOTE | 2021-03-10 07:30 | CA_ITS ---
Transthoracic Echocardiogram Patient (Last, First, Middle): Mallika Moran, Gender: Female Date of : 1945 Age: 75 Procedure Date: 03/10/2021 Procedure Type: Transthoracic Echocardiogram Location: ICU Height: 154.94 cm Weight: 60.78 kg BSA: 1.59 m2 Heart Rate: bpm BP: 124 / 74 mmHg Charge Accounts Audit Clerk: Jagjit MD: Terry Ramirez MD Counter Clerk [employer]: Carson Salinas MD Symptoms: right heart failure Study Quality: Fair ECG Rhythm: Sinus Conclusions: - 1. Normal LV systolic function with impaired relaxation filling pressure next 2. Mild biatrial enlargement 3. Early calcific aortic stenosis 4. Mildly dilated right ventricle with low normal RV systolic function 5. Normal RV systolic pressure 6. No gross pericardial effusion Findings Left Ventricle Normal left ventricular size, thickness, and systolic function. The visually estimated ejection fraction is between 55-60%. Spectral Doppler is indicative of an impaired relaxation filling pattern. E/E prime ratio is between 8 and 15 consistent with indeterminate filling pressures. Wall Motion Rest Echo Findings The basal inferior segment is akinetic. All other scored wall segments showed normal motion. Right Ventricle Mildly increased right ventricular cavity size. There is low normal right ventricular systolic function. Atria The left atrium is mildly dilated. There is no evidence of interatrial shunt. The right atrium is mildly dilated. Aortic Valve There is mild calcification of the aortic valve. There is mild aortic valve stenosis. The mean gradient is 6 mmHg. The aortic valve area is 1.97 cm2. There is no aortic valve regurgitation. Mitral Valve There is mild anterior and posterior mitral leaflet thickening. There is mild mitral annular calcification. There is trace mitral valve regurgitation. There is no mitral valve stenosis. Pulmonic Valve The pulmonic valve was not well visualized. Tricuspid Valve Likely normal tricuspid valve structure and function. There is mild tricuspid valve regurgitation. The right ventricular systolic pressure is normal. Mildly elevated right atrial pressure. There is no evidence of pulmonary hypertension. Great Vessels All visible segments of the aorta are normal in size. The pulmonary artery was not well visualized. Venous The inferior vena cava is mildly dilated and collapses less than 50% with inspiration. Pericardium/Pleural There is no evidence of pericardial effusion. Prior Study Comparison Changes noted compared to prior study dated: 01/28/2021. right-sided chambers are mildly enlarged compared to reported before. IVC also his enlarged with mildly elevated right atrial pressures Measurements 2D Linear Measurements RVIDd: 3.10 RVIDd Index: 1.95 IVSd: 0.90 0.6-0.9/0.6-1.0 cm LVIDd: 4.42 3.9-5.3/4.2-5.9 cm LVIDd Index: 2.78 2.4-3.2/2.2-3.1 cm/m2 LVIDs: 2.85 2.0-3.6 cm LVPWd: 1.33 0.7-1.1 cm Ao Root: 3.10 2.1-3.5 cm LA Diam: 4.20 2.7-3.8/3.0-4.0 cm LAIDs Index: 2.64 1.5-2.3 cm/m2 LV Mass: 215.76 67-162/88-224 g LV Mass Index: 135.70 43-95/49-115 g/m2 LVOT Diam: 2.00 3.0+(-)1.3 cm 2D Systolic Function EF 4C: 43.90 >55% EF 2C: 64.70 >55% EF BiP: 55.20 >55% Mitral Valve MV Pk E: 0.67 MV PK A: 0.93 MV Decel Time: 196.00 E/A: 0.70 E'Lateral: 5.77 E'Medial: 4.57 E/E' Med: 14.60 E/E' Lat: 11.60 Aortic Valve AoV Pk Yvan: 1.62 AoV Mn Yvan: 1.15 AoV VTI: 0.28 AoV Pk Grad: 10.00 Aov Mn Grad: 6.00 SONIA Cont.VTI: 1.97 LVOT LVOT Pk Yvan: 0.90 LVOT Mn Yvan: 0.64 LVOT VTI: 0.18 LVOT Pk Grad: 3.00 LVOT Mn Grad: 2.00 LVOT Diam: 2.00 LVOT Area: 3.14 Diastolic Function MV Pk E: 0.67 MV Pk A: 0.93 E/A: 0.70 E'Medial: 4.57 E/E' Med: 14.60 E' Laterial: 5.77 E/E' Lat: 11.60 Tricuspid Valve TR Pk Yvan: 2.63 TR Pk Grad: 28.00 RA Press: 8.00 RVSP: 36.00 Great Vessels Aorta Ao Root-2D: 3.10 2.0-3.7 cm Ao Asc: 2.80 2.1-3.4 cm Updated in Other Vendor System with Status of Final Carson Salinas MD electronically signed on 03/10/2021 1:34:25 PM with status of Final
--- NOTE | 2021-03-10 09:36 | PM.CNCAR ---
History of Present Illness History of Present Illness Date of Service: 03/10/21 Consult reason: other ( acute cor pulmonale, shock, acute massive pulmonary embolism) Chief complaint: Right heart failure and hypotension Narrative: I was requested to see Mallika in cardiology consultation due to significant RV failure noted on echocardiogram which appear to be acute. Patient presented yesterday brought by her son who is the main historian. Patient is not a good historian due to a prior stroke and speech abnormality as well as possible dementia. Patient has taken care of at home by her son. There is no recent history of travel. However patient is sedentary. There is no clear history of significant leg pain or leg swelling. There is no history of chest pain, shortness of breath or syncope. No clear history of lightheadedness. No history of palpitations. Patient son who is a student also a limited historian. Patient has had lethargy and that is what brought her to the emergency room and was noted to be hypotensive. She has had poor oral intake for the last few days. No fever, chills, cough. Yesterday of by evaluation she was hypertensive was started on vasopressor with Levophed. she was noted to have acute renal failure. Bedside echo was performed by which showed significantly enlarged RV with hypocontractility with flattened LV septum and dilated IVC suggesting that her fluid status and right-sided filling pressures were elevated. However she did not have any symptoms on presentation with heart failure no finding suggestive of heart failure. Her admission troponin was elevated as well as BNP was elevated. She subsequently underwent V/Q scan which showed high probability of large burden of PE in the left lung and subsequently was given half dose tPA by Dr. Ramirez. she was also given gentle hydration. Overnight there is significant improvement in overall hemodynamic status with complete withdrawal of vasopressors with normalized blood pressure and normal heart rate. During the entire hospitalization she had no hypoxia, Which is surprising. This morning her BNP is further increased and her troponins also increased. Her renal function however are on improvement trend. At current time she denies any chest pain or shortness of breath. Complains of some lower abdominal discomfort. There is no overt bleeding reported. Review of Systems Review of Systems: Yes Unobtainable due to mental status PMFSH Past Medical History Medical History Facial droop Left hemiparesis Thyroid nodule Ventral hernia Family History Family History Father No problems noted. Mother No problems noted. Social History Social History Household Members: Family Household Members Other:: son Housing: House Housing Other:: living with others Do you presently have visiting nurse or other home services: No Unable to assess alcohol history related to: Unknown Alcohol intake: never Patient Tobacco Use Status: Former Tobacco user Tobacco use type: Cigarette Smoked in Last 30 Days: No e-Cigarette/Vaping Use: Former Use Patient Interested in Nicotine Replacement: No Patient Given Instructions on How to Stop Smoking: No Second Hand Smoke Exposure: No Use of substances other than those prescribed or required for medical reasons: No Currently Displaying Signs/Symptoms of Drug Intoxication Withdrawal: No Any prior treatment program specific to substance use: No Have you been hit, kicked, punched, or otherwise hurt by someone within the past year? If so, by whom?: No Do you feel safe in your current relationship?: No Current Relationship Is there a partner from a previous relationship who is making you feel unsafe now?: No Are you made to feel afraid or neglected: No [facility] Practices: [employer] Advance Directives: Yes Advance Directives Information Provided: Yes Advance Directives on File: No Advance Directives Date on File: 03/09/21 Do you have thoughts of harming others: None Do you have a plan to hurt others: No Plan Recently lost weight without trying: Unsure How much weight loss: Unsure Eating poorly because of decreased appetite: Yes Nutrition screen score: 5 Nutrition Risks: Poor intake 0-25% >4 days Patient : No : No Poor oral hygiene: No service: No Current occupational status: retired Meds Allergies Allergy/AdvReac Type Severity Reaction Status Date / Time No Known Allergies Allergy Verified 02/28/21 13:08 Active Medications: Current Medications Generic Name Dose Route Start Last Admin Trade Name Freq PRN Reason Stop Dose Admin Atorvastatin Calcium 40 mg 03/10/21 21:00 Atorvastatin Calcium 40 Mg Tablet PO BEDTIME JOSH Heparin Sodium (Porcine) 2,400 unit 03/10/21 05:00 Heparin Sodium,Porcine 5,000 Unit/Ml Vial 40 unit/kg (2400 unit) IVPUSH BOLUS PRN 40 unit/kg - Heparin Protocol Heparin Sodium (Porcine) 4,800 unit 03/10/21 05:00 Heparin Sodium,Porcine 5,000 Unit/Ml Vial 80 unit/kg (4800 unit) IVPUSH BOLUS PRN 80 unit/kg - Heparin Protocol Hydromorphone HCl 0.5 mg 03/10/21 09:31 Hydromorphone Hcl 0.5 Mg/0.5 Ml Syringe IVPUSH Q2H PRN Pain, Mild (Pain Scale 1-3) Norepinephrine Bitartrate 8 mg in 250 mls @ 0 mls/hr 03/09/21 15:30 03/10/21 08:33 Levophed IVCONT 0 mcg/kg/min .Q0M JOSH 0 mls/hr Titration Protocol Per Protocol Heparin Sodium/Sodium Chloride 25,000 unit in 250 mls @ 0 mls/hr 03/10/21 04:00 03/10/21 04:01 IVCONT 14 units/kg/hr .Q0M JOSH 8.44 mls/hr Administration Protocol Per Protocol Home Medications Medication Instructions Recorded Confirmed Last Taken Type anastrozole 1 mg tablet 1 mg PO DAILY 01/03/21 03/09/21 01/18/21 History lisinopril 40 mg tablet 40 mg PO DAILY 01/03/21 03/09/21 01/18/21 History memantine 28 mg capsule 28 mg PO DAILY 01/03/21 03/09/21 01/18/21 History sprinkle,extended release 24hr metoprolol tartrate 50 mg tablet 50 mg PO BID 01/03/21 03/09/21 01/18/21 History amlodipine 5 mg PO DAILY 01/14/21 03/09/21 01/18/21 History Physical Exam Vital Signs: Vital Signs: Last Vital Signs Temp 98.6 F 03/10/21 09:00 Pulse 85 03/10/21 09:00 Resp 19 03/10/21 09:00 BP 119/68 03/10/21 09:00 Pulse Ox 100 03/10/21 09:00 Body Mass Index 25.4 Const: General: cooperative, comfortable, no acute distress, alert and awake Nutritional Appearance: average body habitus HENMT: Head: Yes normocephalic and Yes atraumatic Neck: Neck: Yes trachea midline, Yes supple and Yes no JVD Resp: Effort & Inspection: normal respiratory effort Auscultation: clear to auscultation bilaterally Cardio: Jugular venous distension: no JVD Palpation: normal PMI Rate: regular rate Rhythm: regular rhythm Heart sounds: S1 normal heart sound present and S2 normal heart sound present GI: Auscultation: normal bowel sounds Skin: General skin exam: no rashes or lesions noted Neuro: General: other ( Left hemiparesis and speech difficulty) Extrem: General: No clubbing, No cyanosis and Yes edema Results Labs and Meds Result diagrams: 03/10/21 05:35 03/10/21 05:35 Lab results: Laboratory Results - last 24 hr 03/09/21 03/09/21 03/09/21 12:06 12:47 12:47 WBC 13.7 H RBC 4.66 Hgb 12.4 Hct 39.7 MCV 85.2 MCH 26.6 L MCHC 31.2 RDW 16.1 H Plt Count TNP MPV 11.4 Immature Gran % (Auto) 0.6 H Neut % (Auto) 83.0 H Lymph % (Auto) 9.5 L [place] % (Auto) 6.6 Eos % (Auto) 0.2 Baso % (Auto) 0.1 Lymph # (Auto) 1.3 [place] # (Auto) 0.9 Eos # (Auto) 0.0 Baso # (Auto) 0.0 Abs Immat Gran (auto) 0.08 H Absolute Neuts (auto) 11.4 H Absolute Nucleated RBC 0.000 Nucleated RBC % (auto) 0.0 Smear Tech's Comments VERIFIED PT 14.3 H INR 1.2 H PTT (Heparin Protocol) D-Dimer Sodium Potassium Chloride Carbon Dioxide Anion Gap BUN Creatinine Estim Creat Clear Calc Estimated GFR Random Glucose Lactic Acid Calcium Phosphorus Magnesium Total Bilirubin AST ALT Alkaline Phosphatase Troponin I High Sens B-Natriuretic Peptide Total Protein Albumin Urine Color YELLOW Urine Appearance CLOUDY Urine pH 6.0 Ur Specific [place] >= 1.030 H Urine Protein 1+ H Urine Glucose (UA) NEG Urine Ketones 5 Urine Blood TRACE Urine Nitrite NEG Ur Leukocyte Esterase 3+ H Urine RBC 1-4 Urine WBC TNTC H Urine WBC Clumps NOTED Ur Squamous Epith Cells NONE Urine Bacteria 4+ COVID-19 (PERLA) COVID-19 Clin Com 03/09/21 03/09/21 03/09/21 12:47 12:47 12:47 WBC RBC Hgb Hct MCV MCH MCHC RDW Plt Count MPV Immature Gran % (Auto) Neut % (Auto) Lymph % (Auto) [place] % (Auto) Eos % (Auto) Baso % (Auto) Lymph # (Auto) [place] # (Auto) Eos # (Auto) Baso # (Auto) Abs Immat Gran (auto) Absolute Neuts (auto) Absolute Nucleated RBC Nucleated RBC % (auto) Smear Tech's Comments PT INR PTT (Heparin Protocol) D-Dimer Sodium 141 Potassium 5.4 H Chloride 110 H Carbon Dioxide 19 L Anion Gap 17 BUN 87 H* D Creatinine 5.22 H* Estim Creat Clear Calc 7.7 Estimated GFR 8 Random Glucose 107 Lactic Acid 1.9 Calcium 8.1 L D Phosphorus Magnesium Total Bilirubin 0.9 AST 37 H D ALT 25 Alkaline Phosphatase 78 Troponin I High Sens 1526.0 H* B-Natriuretic Peptide Total Protein 6.3 L Albumin 3.2 L Urine Color Urine Appearance Urine pH Ur Specific [place] Urine Protein Urine Glucose (UA) Urine Ketones Urine Blood Urine Nitrite Ur Leukocyte Esterase Urine RBC Urine WBC Urine WBC Clumps Ur Squamous Epith Cells Urine Bacteria COVID-19 (PERLA) COVID-19 Clin Com 03/09/21 03/09/21 03/09/21 15:25 15:25 15:25 WBC RBC Hgb Hct MCV MCH MCHC RDW Plt Count MPV Immature Gran % (Auto) Neut % (Auto) Lymph % (Auto) [place] % (Auto) Eos % (Auto) Baso % (Auto) Lymph # (Auto) [place] # (Auto) Eos # (Auto) Baso # (Auto) Abs Immat Gran (auto) Absolute Neuts (auto) Absolute Nucleated RBC Nucleated RBC % (auto) Smear Tech's Comments PT INR PTT (Heparin Protocol) D-Dimer 7890 Sodium 144 Potassium 5.3 H Chloride 118 H Carbon Dioxide 16 L Anion Gap 15 BUN 75 H Creatinine 4.28 H* Estim Creat Clear Calc 9.4 Estimated GFR 10 Random Glucose 119 H Lactic Acid Calcium 7.2 L D Phosphorus 3.3 Magnesium 1.8 Total Bilirubin 1.0 AST 34 H ALT 21 Alkaline Phosphatase 70 Troponin I High Sens 1094.8 H* B-Natriuretic Peptide 1219 H Total Protein 5.0 L D Albumin 2.6 L Urine Color Urine Appearance Urine pH Ur Specific [place] Urine Protein Urine Glucose (UA) Urine Ketones Urine Blood Urine Nitrite Ur Leukocyte Esterase Urine RBC Urine WBC Urine WBC Clumps Ur Squamous Epith Cells Urine Bacteria COVID-19 (PERLA) COVID-19 Clin Com 03/09/21 03/09/21 03/09/21 18:17 19:58 19:58 WBC 15.9 H RBC 4.34 Hgb 11.6 L Hct 36.7 L MCV 84.6 MCH 26.7 L MCHC 31.6 RDW 16.1 H Plt Count 290 D MPV 11.0 Immature Gran % (Auto) Neut % (Auto) Lymph % (Auto) [place] % (Auto) Eos % (Auto) Baso % (Auto) Lymph # (Auto) [place] # (Auto) Eos # (Auto) Baso # (Auto) Abs Immat Gran (auto) Absolute Neuts (auto) Absolute Nucleated RBC 0.000 Nucleated RBC % (auto) 0.0 Smear Tech's Comments PT 15.3 H INR 1.3 H PTT (Heparin Protocol) 126.7 H* D-Dimer Sodium Potassium Chloride Carbon Dioxide Anion Gap BUN Creatinine Estim Creat Clear Calc Estimated GFR Random Glucose Lactic Acid Calcium Phosphorus Magnesium Total Bilirubin AST ALT Alkaline Phosphatase Troponin I High Sens B-Natriuretic Peptide Total Protein Albumin Urine Color Urine Appearance Urine pH Ur Specific [place] Urine Protein Urine Glucose (UA) Urine Ketones Urine Blood Urine Nitrite Ur Leukocyte Esterase Urine RBC Urine WBC Urine WBC Clumps Ur Squamous Epith Cells Urine Bacteria COVID-19 (PERLA) Negative COVID-19 Clin Com See Note 03/10/21 03/10/21 03/10/21 03:00 05:35 05:35 WBC 10.3 RBC 3.67 L Hgb 9.7 L Hct 30.6 L MCV 83.4 MCH 26.4 L MCHC 31.7 RDW 15.9 Plt Count 195 D MPV 10.7 Immature Gran % (Auto) 0.8 H Neut % (Auto) 85.9 H Lymph % (Auto) 6.6 L [place] % (Auto) 6.5 Eos % (Auto) 0.0 Baso % (Auto) 0.2 Lymph # (Auto) 0.7 L [place] # (Auto) 0.7 Eos # (Auto) 0.0 Baso # (Auto) 0.0 Abs Immat Gran (auto) 0.08 H Absolute Neuts (auto) 8.8 H Absolute Nucleated RBC 0.000 Nucleated RBC % (auto) 0.0 Smear Tech's Comments PT INR PTT (Heparin Protocol) 32.2 L D D-Dimer Sodium 142 Potassium 5.1 Chloride 116 H Carbon Dioxide 17 L Anion Gap 14 BUN 70 H Creatinine 3.37 H Estim Creat Clear Calc 12.0 Estimated GFR 13 Random Glucose 171 H D Lactic Acid Calcium 8.3 L D Phosphorus 4.3 Magnesium Total Bilirubin 1.2 H AST 26 ALT 17 Alkaline Phosphatase 59 Troponin I High Sens B-Natriuretic Peptide Total Protein 5.8 L Albumin 3.5 D Urine Color Urine Appearance Urine pH Ur Specific [place] Urine Protein Urine Glucose (UA) Urine Ketones Urine Blood Urine Nitrite Ur Leukocyte Esterase Urine RBC Urine WBC Urine WBC Clumps Ur Squamous Epith Cells Urine Bacteria COVID-19 (PERLA) COVID-19 nContact Surgical Com 03/10/21 03/10/21 03/10/21 05:35 05:35 05:35 WBC RBC Hgb Hct MCV MCH MCHC RDW Plt Count MPV Immature Gran % (Auto) Neut % (Auto) Lymph % (Auto) [place] % (Auto) Eos % (Auto) Baso % (Auto) Lymph # (Auto) [place] # (Auto) Eos # (Auto) Baso # (Auto) Abs Immat Gran (auto) Absolute Neuts (auto) Absolute Nucleated RBC Nucleated RBC % (auto) Smear Tech's Comments PT 17.7 H INR 1.5 H PTT (Heparin Protocol) D-Dimer Sodium Potassium Chloride Carbon Dioxide Anion Gap BUN Creatinine Estim Creat Clear Calc Estimated GFR Random Glucose Lactic Acid 0.6 Calcium Phosphorus Magnesium Total Bilirubin AST ALT Alkaline Phosphatase Troponin I High Sens 1739.4 H* D B-Natriuretic Peptide 2253 H Total Protein Albumin Urine Color Urine Appearance Urine pH Ur Specific [place] Urine Protein Urine Glucose (UA) Urine Ketones Urine Blood Urine Nitrite Ur Leukocyte Esterase Urine RBC Urine WBC Urine WBC Clumps Ur Squamous Epith Cells Urine Bacteria COVID-19 (PERLA) COVID-19 Clin Com ECHO preliminary showed Normal LV systolic function RV is slightly enlarged with mild systolic dysfunction with normal mobility of the free wall. IVC size is improved compared to reported yesterday at 2.4 cm with go labs suggestive RA pressures which are mildly elevated. Imaging Radiologist's impression: Impressions Chest X-Ray 03/09/21 10:40 IMPRESSION: No evidence for acute disease in the chest. Pulmonary Perfusion Imaging 03/09/21 14:49 IMPRESSION: High probability for PE with absent perfusion in the entire left lower lobe, lingula and part of the left upper lobe. Venous Duplex 03/09/21 18:19 IMPRESSION: Bilateral DVT. Chest X-Ray 03/09/21 20:24 IMPRESSION: New right IJ central venous catheter tip overlying the expected cavoatrial junction. No pneumothorax. Assessment and Plan (1) Shock circulatory: Status: Acute Acute shock related to massive pulmonary embolism with RV failure which appears to be acute. Status post thrombolytic therapy. Her hemodynamic status has significantly improved since that. On today's echo officially, the RV function seems to have improved compared to reported yesterday with improved right heart filling pressures as well. Her creatinine is improved. She is currently off vasopressors. Blood pressure is maintaining. All good signs. Discussed with the son about significant improvement in overall clinical status. He was very happy about the same. Her troponins as well as BNP of further increase, most likely lagging clinical improvement due to decreased renal clearance. Continue to trend them. I would not necessarily treat them as she has no signs of right heart failure. (2) Acute massive pulmonary embolism: Status: Acute Acute massive pulmonary embolism with shock as above. Status post tPA. She has prior history of CVA with left hemiparesis. 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 She also has prior history of breast cancer and further workup with Hematology/oncology consultation. consider IV anticoagulation and switching to oral anticoagulant therapy as her renal function improves, most likely lifelong. Continue supportive care. Will sign of the case at this point time. Thank you for allowing us to partake in her care Procedures Date of Service Date of Service: 03/10/21
[2021-03-10] MEDS: HYDROmorphone HCl 0.5 MG/0.5 ML SYRINGE IVPUSH (09:46)
[2021-03-10 11:00] LABS: PTT Heparin Drip 153.1 SEC (53-77.9)
[2021-03-10 12:26] LABS: PTT Heparin Drip 87.8 SEC (53-77.9)
--- NOTE | 2021-03-10 15:12 | P.PNCC_ITS ---
Subjective Subjective Date of Service: 03/10/21 Interval History: Mrs. Aashish Freeman was admitted to the ICU yesterday after presenting to the ED with massive PE. The patient is a 75 yo F with PMHx of: - HTN. On amlodipine and Lisinopril. 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 On aspirin. - Abdominal wall hernia that they?ve seen Dr. Gudino for and he has counseled them that at this time the risk of a repair is too high, unless the hernia becomes more symptomatic. - CKD, according to her labs. - dx of Alzheimer?s dementia and is on memantine. - h/o breast cancer diagnosed in ? 2018, ? s/p lumpectomy, currently on anastrozole - Thyroid nodule My understanding is that the patient lives with her son and he is her primary caregiver. The patient was brought in by ambulance to the ED yesterday morning because of lethargy x 1 day, and she was not been eating or drinking. Upon EMS arrival at the scene, she was found hypotensive. The patient's son denied fever, vomiting, or diarrhea. On admission to the ED, the patient was awake and alert and in no acute distress. She appeared comfortable. She seem to follow simple commands. Temperature was 99.7 degrees. Heart rate was 97, blood pressure was 82/47, respiratory rate was 18-24, and the sat was 98-100% on room air. The general physical exam was reportedly unremarkable. Labs in the ED were notable for a white count of 13.7 (baseline 11), hemoglobin 12.4, normal coags, BUN and creatinine of 87/5.2 (baseline about 41/1.5), bicarb 19, potassium is 5.4, LFTs were unremarkable, albumin was 3.2, lactate was 1.9 and troponin was 1526. EKG was unremarkable. Chest x-ray was unremarkable. The patient was given 4 L of normal saline without significant change in her blood pressure. I was called to see the patient. Her mental status appeared to be at her baseline. She was non-toxic. Blood pressure was 86/53. She had prominent JVD. Abdomen was benign. No edema or obvious extremity swelling. ECHOCARDIOGRAM done by me showed moderate LVH, small pancaked LV cavity with good LVEF, RV was markedly dilated with RV:LV cavity ratio at least 2.0. Septum was flattened and maybe even bowed into the LV in some views, RA is very large, 1-2+ TR by color chary, with CWD jet measuring at least 3.0m/sec, Gradient of 39mm, and IVC was dilated measuring 2.7cm, with minimal inspiratory collapse, estimated CVP 15mm, RVSP estimate at least 51mm. She was started on Levophed and sent for perfusion scan and then admitted to ICU. The perfusion scan showed ?normal perfusion seen to the entire right lung, and only minimal perfusion seen in left upper lung, with no perfusion seen in the left midlung or lower lobe, all suggestive of high probability for PE.? DDimer came back at 7890. BNP was 1219. Repeat troponin was down to 1094, and repeat BUN/creatinine was down to 75/4.2. She was given a loading dose of Heparin while we tried to transfer her for catheter-directed thrombolysis. Duplex scan of her legs showed bilateral DVT. Tx to [facility] and [facility] were both declined, so we gave her half dose tPA (50mg) and then she was started on a heparin drip. Her BP started coming up almost immediately after the tPA was started and she started making urine. Levophed came off early this morning. She?s been breathing easy with room air Sats approaching 100% the entire time. This morning she?s fully alert. Earlier she was c/o lower abdominal pain. We gave her ? mg dilaudid and she was comfortable. Breathing easy with Sat 100% on room air. HR 82, BP 122/56 off Levophed. Afebrile. Looks like her JVD has resolved. Chest is clear. No M or G. Abdomen is very soft and she?s got a softball sized lower midline ventral hernia. No tenderness or guarding. She denies any pain on palpation. She has no edema. LABORATORY DATA: As below. Notably, white count is down to 10. Hemoglobin is down 9.7, from 11.6 last night. Last PTT was 87. BUN and creatinine are down to 70/3.3, potassium is 5.1, bicarb is 17. Troponin this morning is 1739, up from 1094 yesterday afternoon; BNP is 2253, up from 1219 yesterday afternoon. ECHOCARDIOGRAM repeated this morning by the tack, with me interpreting at the bedside: LV cavity size looks about 50% bigger this morning compared with yesterday. LV function is normal. RV is smaller, with RV:LV cavity ration in the 1.0 range. Septal shape is probably normal. TR color chary jet is smaller than yesterday, the CWD measurement is down to 2.6 (gradient 28mm), the IVC is smaller and has some insp collapse. Est CVP 8mm, est RVSP down to 36mm. IMPRESSION: 1. S/P previous right CVA with significant residual deficit. Also h/o dementia. 2. Gross right heart failure yesterday, 2? massive left sided PE. And duplex scan showed bilat DVT. Responded well to tPA and heparinization. Right sided pressure and volumes are better today, left heart is more filled, hypotension resolved, and renal indices and urine output are improved. Discussed with Dr. Salinas at length. 3. Acute on chronic kidney injury. 2? PE. Improving. 4. h/o cancer, now with PE. The PE needs a coag w/u and search for metastatic lesions. She had a head CT last month which didn?t show anything notable. I sent her for a noncontrast chest and abdomen today. The radiologist read it as showing ?Multiple bilateral pulmonary nodules measuring noncalcified 2 mm nodules and 6 mm calcified nodules. No abnormal mediastinal lymph nodes. Right breast spiculated lesion?? Oncology consult. Discussed with Dr. Krishna. 5. Hb dropped 2 points overnite. Uncertain etiology. No bleeding evident but hasn?t put out any stool. We?ll check stool for hemoccult. Recheck H&H and BMP tonite. 6. ID: Her WBC was elevated and her U/A was positive. The urine culture is still pending. I gave her one dose of ceftriaxone this morning. I will repeat her U/A now. If the urine cx is still negative tomorrow, would not continue with abx. Stable for transfer to [facility]. Will sign out to hospitalists. Time: 80+ min. ([id number]) Critical Care Time (minutes): 0 Physical Exam Vital Signs: Vital Signs: Last Vital Signs Temp 98.4 F 03/10/21 14:00 Pulse 85 03/10/21 15:00 Resp 19 07/01/21 15:00 BP 103/57 L 03/10/21 15:00 Pulse Ox 98 03/10/21 15:00 Body Mass Index 25.4 Objective Data Labs CBC & Chem 7: 03/10/21 05:35 03/10/21 05:35 Labs: Laboratory Results - last 24 hr 03/09/21 03/09/21 03/09/21 15:25 15:25 15:25 WBC RBC Hgb Hct MCV MCH MCHC RDW Plt Count MPV Immature Gran % (Auto) Neut % (Auto) Lymph % (Auto) Wilkin % (Auto) Eos % (Auto) Baso % (Auto) Lymph # (Auto) Wilkin # (Auto) Eos # (Auto) Baso # (Auto) Abs Immat Gran (auto) Absolute Neuts (auto) Absolute Nucleated RBC Nucleated RBC % (auto) PT INR PTT (Heparin Protocol) D-Dimer 7890 Sodium 144 Potassium 5.3 H Chloride 118 H Carbon Dioxide 16 L Anion Gap 15 BUN 75 H Creatinine 4.28 H* Estim Creat Clear Calc 9.4 Estimated GFR 10 Random Glucose 119 H Lactic Acid Calcium 7.2 L D Phosphorus 3.3 Magnesium 1.8 Total Bilirubin 1.0 AST 34 H ALT 21 Alkaline Phosphatase 70 Troponin I High Sens 1094.8 H* B-Natriuretic Peptide 1219 H Total Protein 5.0 L D Albumin 2.6 L COVID-19 (PERLA) COVID-19 Clin Com 03/09/21 03/09/21 03/09/21 18:17 19:58 19:58 WBC 15.9 H RBC 4.34 Hgb 11.6 L Hct 36.7 L MCV 84.6 MCH 26.7 L MCHC 31.6 RDW 16.1 H Plt Count 290 D MPV 11.0 Immature Gran % (Auto) Neut % (Auto) Lymph % (Auto) Wilkin % (Auto) Eos % (Auto) Baso % (Auto) Lymph # (Auto) Wilkin # (Auto) Eos # (Auto) Baso # (Auto) Abs Immat Gran (auto) Absolute Neuts (auto) Absolute Nucleated RBC 0.000 Nucleated RBC % (auto) 0.0 PT 15.3 H INR 1.3 H PTT (Heparin Protocol) 126.7 H* D-Dimer Sodium Potassium Chloride Carbon Dioxide Anion Gap BUN Creatinine Estim Creat Clear Calc Estimated GFR Random Glucose Lactic Acid Calcium Phosphorus Magnesium Total Bilirubin AST ALT Alkaline Phosphatase Troponin I High Sens B-Natriuretic Peptide Total Protein Albumin COVID-19 (PERLA) Negative COVID-19 Clin Com See Note 03/10/21 03/10/21 03/10/21 03:00 05:35 05:35 WBC 10.3 RBC 3.67 L Hgb 9.7 L Hct 30.6 L MCV 83.4 MCH 26.4 L MCHC 31.7 RDW 15.9 Plt Count 195 D MPV 10.7 Immature Gran % (Auto) 0.8 H Neut % (Auto) 85.9 H Lymph % (Auto) 6.6 L Wilkin % (Auto) 6.5 Eos % (Auto) 0.0 Baso % (Auto) 0.2 Lymph # (Auto) 0.7 L Wilkin # (Auto) 0.7 Eos # (Auto) 0.0 Baso # (Auto) 0.0 Abs Immat Gran (auto) 0.08 H Absolute Neuts (auto) 8.8 H Absolute Nucleated RBC 0.000 Nucleated RBC % (auto) 0.0 PT INR PTT (Heparin Protocol) 32.2 L D D-Dimer Sodium 142 Potassium 5.1 Chloride 116 H Carbon Dioxide 17 L Anion Gap 14 BUN 70 H Creatinine 3.37 H Estim Creat Clear Calc 12.0 Estimated GFR 13 Random Glucose 171 H D Lactic Acid Calcium 8.3 L D Phosphorus 4.3 Magnesium Total Bilirubin 1.2 H AST 26 ALT 17 Alkaline Phosphatase 59 Troponin I High Sens B-Natriuretic Peptide Total Protein 5.8 L Albumin 3.5 D COVID-19 (PERLA) COVID-19 Clin Com 03/10/21 03/10/21 03/10/21 05:35 05:35 05:35 WBC RBC Hgb Hct MCV MCH MCHC RDW Plt Count MPV Immature Gran % (Auto) Neut % (Auto) Lymph % (Auto) Wilkin % (Auto) Eos % (Auto) Baso % (Auto) Lymph # (Auto) Wilkin # (Auto) Eos # (Auto) Baso # (Auto) Abs Immat Gran (auto) Absolute Neuts (auto) Absolute Nucleated RBC Nucleated RBC % (auto) PT 17.7 H INR 1.5 H PTT (Heparin Protocol) D-Dimer Sodium Potassium Chloride Carbon Dioxide Anion Gap BUN Creatinine Estim Creat Clear Calc Estimated GFR Random Glucose Lactic Acid 0.6 Calcium Phosphorus Magnesium Total Bilirubin AST ALT Alkaline Phosphatase Troponin I High Sens 1739.4 H* D B-Natriuretic Peptide 2253 H Total Protein Albumin COVID-19 (PERLA) COVID-19 [facility] Com 03/10/21 03/10/21 10:05 11:56 WBC RBC Hgb Hct MCV MCH MCHC RDW Plt Count MPV Immature Gran % (Auto) Neut % (Auto) Lymph % (Auto) Wilkin % (Auto) Eos % (Auto) Baso % (Auto) Lymph # (Auto) Wilkin # (Auto) Eos # (Auto) Baso # (Auto) Abs Immat Gran (auto) Absolute Neuts (auto) Absolute Nucleated RBC Nucleated RBC % (auto) PT INR PTT (Heparin Protocol) 153.1 H* D 87.8 H D D-Dimer Sodium Potassium Chloride Carbon Dioxide Anion Gap BUN Creatinine Estim Creat Clear Calc Estimated GFR Random Glucose Lactic Acid Calcium Phosphorus Magnesium Total Bilirubin AST ALT Alkaline Phosphatase Troponin I High Sens B-Natriuretic Peptide Total Protein Albumin COVID-19 (PERLA) COVID-19 Clin Com Microbiology Microbiology Results: Microbiology 03/09/21 12:47 Blood - Venous Blood Culture - Preliminary No growth after 24 hours. 03/09/21 12:47 Blood - Venous Blood Culture - Preliminary No growth after 24 hours. 03/09/21 Unknown Urine clean catch - Urine tristan top Urine Culture - Preliminary Culture in progress. Quality Stroke Does the patient have a stroke diagnosis?: No VTE Prior VTE?: No VTE Risk Level:: Medical - moderate - high VTE Device Contraindication: N/A - Device Ordered VTE Drug Contraindication: N/A - Med Ordered
--- NOTE | 2021-03-10 16:04 | MHC.CM.PN ---
Attempted to meet with pt to discuss d/c planning needs: pt w/dementia at baseline, Greek speaking only, and audibly in discomfort: Call placed to son/HCP Rodri to review. Per Rodri, pt is totally dependent on family for all care needs. She has a walker and w/c and uses BLS transport to get to appointments, etc. She does not currently have services in the home. Rodri is receptive to NA for skilled RN visits. Referral placed. [facility] to transport pt home when medically ready
[2021-03-10 16:31] LABS: Glucose Urine UA NEG (NEG); Leukocyte Esterase Urine 2+ (NEG); Nitrite Urine NEG (NEG); UACC Culture Trigger YES; Urine Blood 1+ (NEG); Urine Ketones NEG (NEG); Urine Protein TRACE MG/DL (NEG-TRACE)
[2021-03-10 16:36] LABS: Appearance Urine CLEAR; Color Urine YELLOW
[2021-03-10 16:46] LABS: Bacteria Urine TRACE /LPF; Squamous Epithelial Cell Urine TRACE /LPF; WBC Clumps Urine NOTED
[2021-03-10 18:45] LABS: Hematocrit 30.3 % (37-47); Hemoglobin 9.6 g/dl (12.0-16.0)
[2021-03-10 18:53] LABS: PTT Heparin Drip 50.9 SEC (53-77.9)
[2021-03-10 19:15] LABS: Anion Gap 14 (12-20); Blood Urea Nitrogen 61 mg/dL (9-16); Calcium 8.4 mg/dL (8.4-10.2); Carbon Dioxide 18 mmol/L (22-29); Chloride 120 mmol/L (96-108); Creatinine Clr Calc Pharmacy 16.1; Estimated Glomerular Filt Rate 19; Glucose Random 76 mg/dL (60-115); Potassium 4.6 mmol/L (3.3-5.1); Sodium 147 mmol/L (135-145)
[2021-03-10] MEDS: Atorvastatin Calcium 40 MG TABLET PO (20:49)
[2021-03-10] MEDS: Heparin Sodium,Porcine 5,000 UNIT/ML VIAL 2400 UNIT IVPUSH (20:52)
[2021-03-11] VITALS (7 sets, daily range): BP systolic 140–161; BP diastolic 66–90; PULSE 84–117; RESP 12–20; TEMP 35.6–37.7; O2SAT 95–99; BMI 25.6
[2021-03-11 03:23] LABS: PTT Heparin Drip 65.5 SEC (53-77.9)
--- NOTE | 2021-03-11 03:41 | PC.NURSE ---
Most recent heparin draw came back at 65.5 meaning no change at this time. Drip still running at 12u/Kg and redraw will be for 9:40am.
[2021-03-11] MEDS: Heparin Sodium,Porcine/1/2NS 25,000 UNIT/250 ML IV.SOLN 7.24 UNIT IVCONT (04:28)
--- NOTE | 2021-03-11 08:40 | P.CNHO_ITS ---
Subjective - Subjective Chief complaint: Consult for: 1. Recurrent breast cancer.2. PE. Patient: new to practice Consult date: 03/11/21 Requesting Physician: James. Primary Care Provider: Jaycee Drake MD Medical Summary: DIAGNOSIS: 1. PE. 2. HISTORY OF BREAST CANCER. 3. CONCERN FOR DISEASE RECURRENCE. HPI - Consult Narrative Reason for consult: Consult for: 1. PE. 2. Breast cancer. Narrative: Mallika Freeman is a pleasant 75 year old lady, who was brought in by ambulance to the ED on 03/09 morning because of lethargy x 1 day. She was not been eating or drinking. She was found hypotensive. The patient's son denied fever, vomiting, or diarrhea. On admission to the ED, the patient was awake and alert and in no acute distress. She appeared comfortable. She seem to follow simple commands. Temperature was 99.7 degrees. Heart rate was 97, blood pressure was 82/47, respiratory rate was 18-24, and the sat was 98-100% on room air. The general physical exam was reportedly unremarkable. DATA BASE: Her labs were notable for a white count of 13.7 (baseline 11), hemoglobin 12.4, normal coags, BUN and creatinine of 87/5.2 (baseline about 41/1.5), bicarb 19, potassium is 5.4, LFTs were unremarkable, albumin was 3.2, lactate was 1.9 and troponin was 1526. EKG was unremarkable. Chest x-ray was unremarkable. She was given 4 L of normal saline without significant change in her blood pressure. Her mental status appeared to be at her baseline. She was non-toxic. Blood pressure was 86/53. She had prominent JVD. Abdomen was benign. No edema or obvious extremity swelling. ECHOCARDIOGRAM done, showed moderate LVH, small pancaked LV cavity with good LVEF, RV was markedly dilated with RV:LV cavity ratio at least 2.0. Septum was flattened and maybe even bowed into the LV in some views, RA is very large, 1-2+ TR by color chary, with CWD jet measuring at least 3.0m/sec, Gradient of 39mm, and IVC was dilated measuring 2.7cm, with minimal inspiratory collapse, estimated CVP 15mm, RVSP estimate at least 51mm. Hospital course: She was started on Levophed and sent for perfusion scan, then admitted to ICU. DDimer came back at 7890. BNP was 1219. Repeat troponin was down to 1094, and repeat BUN/creatinine was down to 75/4.2. The perfusion scan showed ?normal perfusion seen to the entire right lung, and only minimal perfusion seen in left upper lung, with no perfusion seen in the left midlung or lower lobe, all suggestive of high probability for PE.? Duplex scan of her legs showed bilateral DVT. She was given a loading dose of Heparin while we tried to transfer her for catheter-directed thrombolysis. She was given half dose tPA (50mg) and then she was started on a heparin drip. Her BP started coming up almost immediately after the tPA was started and she started making urine. Levophed came off yesterday morning. She?s been breathing easy with room air Sats approaching 100% the entire time. PAST MEDICAL HISTORY: - HTN. On amlodipine and Lisinopril. 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 On aspirin. - Abdominal wall hernia that they?ve seen Dr. Gudino for and he has counseled them that at this time the risk of a repair is too high, unless the hernia becomes more symptomatic. - CKD, according to her labs. - dx of Alzheimer?s dementia and is on memantine. - h/o breast cancer diagnosed in ? 2018, ? s/p lumpectomy, currently on anastrozole - Thyroid nodule Review of Systems - Constitutional Reports system reviewed and no additional complaints, except as documented, Reports fatigue, Reports lack of energy, Reports malaise, Reports poor appetite, Reports weakness, Reports weight loss - Eyes Reports system reviewed and no additional complaints, except as documented - ENT Reports system reviewed and no additional complaints, except as documented - Cardiovascular Reports system reviewed and no additional complaints, except as documented, Reports leg swelling, Reports shortness of breath - Respiratory Reports no additional respiratory complaints - Gastrointestinal Reports system reviewed and no additional complaints, except as documented - Genitourinary Reports no additional female genitourinary complaints - Musculoskeletal Reports system reviewed and no additional complaints, except as documented - Integumentary/Breasts Skin/Breast: Reports no additional skin complaints - Neurologic Reports as per HPI - Psychiatric Reports system reviewed and no additional complaints, except as documented - Endocrine Reports no additional endocrine complaints - Hematologic/Lymphatic Reports system reviewed and no additional complaints, except as documented - Allergic/Immunologic Reports system reviewed and no additional complaints, except as documented Oncology Screenings - ECOG Performance Status ECOG Performance Status: 2 [facility] Medical History: Medical History (Last Updated 03/17/21 @ 10:13 by Katie Castillo RN) Breast cancer Facial droop Left hemiparesis Thyroid nodule Ventral hernia Functional capacity: bed bound Patient : No Family History: Family History (Last Updated 03/17/21 @ 10:19 by Katie Castillo RN) Father Parkinson disease Cardiac disease Mother No problems noted. Unknown Cancer Surgical History: Surgical History (Last Updated 03/17/21 @ 10:13 by Katie Castillo RN) History of lumpectomy of right breast Social History: Social History (Last Reviewed 03/10/21 @ 09:40 by Carson Salinas MD) Living Situation History: Household Members: Family Household Members Other:: son Housing: House Housing Other:: living with others Do you presently have visiting nurse or other home services: No Alcohol History: Unable to assess alcohol history related to: Unknown Alcohol intake: never Tobacco History: Patient Tobacco Use Status: Former Tobacco user Tobacco use type: Cigarette e-Cigarette/Vaping Use: Former Use Second Hand Smoke Exposure: No Advance Directives: Advance Directives Date on File: 03/09/21 Occupation Assessmet: service: No Current occupational status: unemployed Home Medications and Allergies Current Medications: Current Medications Generic Name Dose Route Start Last Admin Trade Name Freq PRN Reason Stop Dose Admin Atorvastatin Calcium 40 mg 03/10/21 21:00 03/10/21 20:49 Atorvastatin Calcium 40 Mg Tablet PO 40 mg BEDTIME JOSH Administration Heparin Sodium (Porcine) 2,400 unit 03/10/21 05:00 03/10/21 20:52 Heparin Sodium,Porcine 5,000 Unit/Ml Vial 40 unit/kg (2400 unit) 2,400 unit IVPUSH Administration BOLUS PRN 40 unit/kg - Heparin Protocol Heparin Sodium (Porcine) 4,800 unit 03/10/21 05:00 Heparin Sodium,Porcine 5,000 Unit/Ml Vial 80 unit/kg (4800 unit) IVPUSH BOLUS PRN 80 unit/kg - Heparin Protocol Hydromorphone HCl 0.5 mg 03/10/21 09:31 03/10/21 09:46 Hydromorphone Hcl 0.5 Mg/0.5 Ml Syringe IVPUSH 0.5 mg Q2H PRN Administration Pain, Mild (Pain Scale 1-3) Heparin Sodium/Sodium Chloride 25,000 unit in 250 mls @ 0 mls/hr 03/10/21 04:00 03/11/21 04:28 IVCONT 12 units/kg/hr .Q0M JOSH 7.24 mls/hr Administration Protocol Per Protocol Home Medications Medication Instructions Recorded Confirmed Type anastrozole 1 mg tablet 1 mg PO DAILY 01/03/21 03/17/21 History lisinopril 40 mg tablet 40 mg PO DAILY 01/03/21 03/17/21 History memantine 28 mg capsule 28 mg PO DAILY 01/03/21 03/17/21 History sprinkle,extended release 24hr metoprolol tartrate 50 mg tablet 50 mg PO BID 01/03/21 03/17/21 History amlodipine 5 mg PO DAILY 01/14/21 03/17/21 History Allergies Allergy/AdvReac Type Severity Reaction Status Date / Time No Known Allergies Allergy Verified 02/28/21 13:08 Physical Exam Vital signs: Vital Signs Temp 99.8 F 03/11/21 07:13 Pulse 87 03/11/21 07:13 Resp 18 03/11/21 07:13 BP 145/66 H 03/11/21 07:13 Pulse Ox 95 03/11/21 07:13 Intake & Output 03/10/21 03/11/21 03/11/21 18:59 06:59 18:59 Intake Total 143.216 / 247.988 104.772 / 247.988 Output Total 410 / 610 200 / 610 Balance -266.784 / -362.012 -95.228 / -362.012 Urine Output (Average ml/kg/hr) 0.56 0.27 0.27 Intake: Intake, IV Amount 143.216 / 247.988 104.772 / 247.988 cefTRIAXone sodium 1 gm In 0.9 50 / 50 % Sodium Chloride 50 ml @ 100 mls/hr IV ONCE ONE Rx#: [id number] Heparin Sodium,Porcine/1/2NS 25 58.939 / 163.711 104.772 / 163.711 ,000 unit In 250 ml @ Per Protocol IVCONT .Q0M [facility] Rx#: [id number] Norepinephrine Bitartrate/NS 8 34.277 / 34.277 mg In 250 ml @ Per Protocol IVCONT .Q0M [facility] Rx#:[id number] Output: Output, Urine Amount 200 / 200 Output, Urine Amount (Catheter) 410 / 410 Urethral 410 / 410 Other: Urine Color Yellow Continuous Bladder Irrigation Fluid - Amount Instilled Urethral 600 Weight 61.1 kg 61.5 kg [place] Weight in Grams [phone] Weight 61.5 kg - Constitutional Present: moderate distress - Routine HEENT Exam Head: Present: normal inspection Eye: Present: normal appearance ENT: Present: mucous membranes moist - Routine Respiratory Exam Present: decreased breath sounds - Routine Cardiovascular Exam Cardiovascular: Present: RRR, S1, S2 - Routine Abdominal Exam Present: normal bowel sounds, nontender - Routine Extremities Exam Present: pedal edema - Routine Skin Exam Present: intact - Routine Neurological Exam Present: alert, altered mental status - Detailed Neurological Exam: Coma Scale Eye Opening: Spontaneous (4) Verbal Response: Confused (4) Motor Response: Obeys commands (6) Manish Coma Scale Total: 14 - Routine Psychiatric Exam Present: anxious Hem/Onc Consult Result - Labs CBC & Chem 7: 03/15/21 08:15 03/15/21 08:15 Labs: Short CBC 03/10/21 Range/Units 18:32 Hgb 9.6 L (12.0-16.0) g/dl Hct 30.3 L (37-47) % BMP 03/10/21 18:32 Sodium 147 H Potassium 4.6 Chloride 120 H Carbon Dioxide 18 L BUN 61 H Creatinine 2.53 H Calcium 8.4 Urine 03/10/21 Range/Units 16:16 Urine Color YELLOW Urine Appearance CLEAR Urine pH 6.0 (5.0-8.0) Ur Specific Wolbach 1.020 (1.005-1.025) Urine Protein TRACE (NEG-TRACE) MG/DL Urine Glucose (UA) NEG (NEG) MG/DL Assessment and Plan (1) Acute massive pulmonary embolism Status: Acute This is a pleasant 75-year-old lady, who presented with mental status changes and weakness. She was noted to have massive pulmonary emboli. She underwent thrombo lytic therapy and is currently on anticoagulation. She will likely need it on the long-term basis. Underlying risk factor is most likely the malignancy. That will be investigated further, On an outpatient basis. Thanks, (2) Breast cancer Status: Acute This is a pleasant 75-year-old lady with a previous history of Breast Cancer. She now presents with massive PE with hemodynamic compromise. She improved with thrombolytic therapy. CT scan of the chest from yesterday revealed: Multiple bilateral pulmonary nodules measuring noncalcified 2 mm nodules and 6 mm calcified nodules. No abnormal mediastinal lymph nodes. Right breast spiculated lesion with mild anterior skin thickening. Correlate with clinical exam. Bibasilar minimal pleural effusion/thickening. Nonobstructive radiopaque calculi lower pole right kidney. There is bilateral hydronephrosis. Hyperdense gallbladder sludge. Cannot exclude small stones. PLAN: I checked with her son to see where she had the original breast cancer, diagnosed and treated. These were in [place]. I advised the son to get the records from his brother who is still there. She will need further investigation including breast biopsy. This can be arranged as an outpatient. Will arrange for a mammogram and ultrasound followed by a biopsy as indicated. thank you,
[2021-03-11 10:01] LABS: Hematocrit 36.9 % (37-47); Hemoglobin 11.6 g/dl (12.0-16.0); Mean Corpuscular HGB Conc 31.4 g/dl (31.0-35.0); Mean Corpuscular Hemoglobin 26.7 pg (27.0-33.0); Mean Corpuscular Volume 84.8 fL (80-98); Mean Platelet Volume 11.1 fL (9.4-12.3); Platelet Count 228 X10*3/uL (160-400); Red Blood Count 4.35 X10*6/uL (4.20-5.50); Red Cell Distribution Width 16.3 % (11.0-16.0)
[2021-03-11 10:11] LABS: PTT Heparin Drip 62.8 SEC (53-77.9)
[2021-03-11 10:36] LABS: Anion Gap 14 (12-20); Blood Urea Nitrogen 48 mg/dL (9-16); Calcium 8.4 mg/dL (8.4-10.2); Carbon Dioxide 18 mmol/L (22-29); Chloride 119 mmol/L (96-108); Estimated Glomerular Filt Rate 28; Glucose Random 109 mg/dL (60-115); Potassium 4.5 mmol/L (3.3-5.1); Sodium 146 mmol/L (135-145)
--- NOTE | 2021-03-11 10:44 | PM.PNCARD ---
Subjective Subjective Date of Service: 03/11/21 Principal diagnosis: pulmonary embolism. Interval history: Patient with stable cardiovascular status in burden and mix. Transferred out of intensive care unit yesterday. No new arrhythmias. History not obtainable from the patient. Currently renal function is seem to be improving. Troponins and BNP are pending from today. Review of Systems Review of Systems Yes Unobtainable due to mental condition Physical Exam Vital Signs: Last Vital Signs Temp 99.8 F 03/11/21 07:13 Pulse 87 03/11/21 07:13 Resp 18 03/11/21 07:13 BP 145/66 H 03/11/21 07:13 Pulse Ox 95 03/11/21 07:13 Body Mass Index 25.6 Neck Neck: Yes trachea midline, Yes supple and Yes no JVD Resp Effort & Inspection: normal respiratory effort Auscultation: clear to auscultation bilaterally Cardio Jugular venous distension: no JVD Palpation: normal PMI Rate: regular rate Rhythm: regular rhythm Heart sounds: S1 normal heart sound present and S2 normal heart sound present Skin General skin exam: no rashes or lesions noted Extrem General: Yes no clubbing, cyanosis or edema Results Labs and Meds Result diagrams: 03/11/21 09:51 03/11/21 09:51 Lab results: Laboratory Results - last 24 hr 03/10/21 03/10/21 03/10/21 10:05 11:56 16:16 WBC RBC Hgb Hct MCV MCH MCHC RDW Plt Count MPV Absolute Nucleated RBC Nucleated RBC % (auto) PTT (Heparin Protocol) 153.1 H* D 87.8 H D Sodium Potassium Chloride Carbon Dioxide Anion Gap BUN Creatinine Estim Creat Clear Calc Estimated GFR Random Glucose Calcium Urine Color YELLOW Urine Appearance CLEAR Urine pH 6.0 Ur Specific [place] 1.020 Urine Protein TRACE Urine Glucose (UA) NEG Urine Ketones NEG Urine Blood 1+ H Urine Nitrite NEG Ur Leukocyte Esterase 2+ H Urine RBC 10-14 H Urine WBC 76-150 H Urine WBC Clumps NOTED Ur Squamous Epith Cells TRACE Urine Bacteria TRACE 03/10/21 03/10/21 03/10/21 18:32 18:32 18:32 WBC RBC Hgb 9.6 L Hct 30.3 L MCV MCH MCHC RDW Plt Count MPV Absolute Nucleated RBC Nucleated RBC % (auto) PTT (Heparin Protocol) 50.9 L D Sodium 147 H Potassium 4.6 Chloride 120 H Carbon Dioxide 18 L Anion Gap 14 BUN 61 H Creatinine 2.53 H Estim Creat Clear Calc 16.1 Estimated GFR 19 Random Glucose 76 D Calcium 8.4 Urine Color Urine Appearance Urine pH Ur Specific [place] Urine Protein Urine Glucose (UA) Urine Ketones Urine Blood Urine Nitrite Ur Leukocyte Esterase Urine RBC Urine WBC Urine WBC Clumps Ur Squamous Epith Cells Urine Bacteria 03/11/21 03/11/21 03/11/21 03:05 09:51 09:51 WBC 8.0 RBC 4.35 Hgb 11.6 L D Hct 36.9 L D MCV 84.8 MCH 26.7 L MCHC 31.4 RDW 16.3 H Plt Count 228 MPV 11.1 Absolute Nucleated RBC 0.000 Nucleated RBC % (auto) 0.0 PTT (Heparin Protocol) 65.5 D 62.8 Sodium Potassium Chloride Carbon Dioxide Anion Gap BUN Creatinine Estim Creat Clear Calc Estimated GFR Random Glucose Calcium Urine Color Urine Appearance Urine pH Ur Specific [place] Urine Protein Urine Glucose (UA) Urine Ketones Urine Blood Urine Nitrite Ur Leukocyte Esterase Urine RBC Urine WBC Urine WBC Clumps Ur Squamous Epith Cells Urine Bacteria 03/11/21 09:51 WBC RBC Hgb Hct MCV MCH MCHC RDW Plt Count MPV Absolute Nucleated RBC Nucleated RBC % (auto) PTT (Heparin Protocol) Sodium 146 H Potassium 4.5 Chloride 119 H Carbon Dioxide 18 L Anion Gap 14 BUN 48 H Creatinine 1.77 H Estim Creat Clear Calc 23.0 Estimated GFR 28 Random Glucose 109 D Calcium 8.4 Urine Color Urine Appearance Urine pH Ur Specific [place] Urine Protein Urine Glucose (UA) Urine Ketones Urine Blood Urine Nitrite Ur Leukocyte Esterase Urine RBC Urine WBC Urine WBC Clumps Ur Squamous Epith Cells Urine Bacteria Imaging Radiologist's impression: Impressions Abdomen/Pelvis CT 03/10/21 11:38 IMPRESSION: Multiple bilateral pulmonary nodules measuring noncalcified 2 mm nodules and 6 mm calcified nodules. No abnormal mediastinal lymph nodes. Right breast spiculated lesion with mild anterior skin thickening. Correlate with clinical exam. Bibasilar minimal pleural effusion/thickening. Nonobstructive radiopaque calculi lower pole right kidney. There is bilateral hydronephrosis. Hyperdense gallbladder sludge. Cannot exclude small stones. Chest CT 03/10/21 11:38 IMPRESSION: Multiple bilateral pulmonary nodules measuring noncalcified 2 mm nodules and 6 mm calcified nodules. No abnormal mediastinal lymph nodes. Right breast spiculated lesion with mild anterior skin thickening. Correlate with clinical exam. Bibasilar minimal pleural effusion/thickening. Nonobstructive radiopaque calculi lower pole right kidney. There is bilateral hydronephrosis. Hyperdense gallbladder sludge. Cannot exclude small stones. Progress Note: A&P Assessment and plan (1) Shock circulatory: Status: Acute Assessment and Plan: Acute circulatory shock related to acute cor pulmonale related to massive pulmonary embolism done extremely well since thrombolic therapy. Hemodynamics remained stable. Blood pressure is actually on the higher side. May slowly start her oral antihypertensive therapy for now. 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 Will require long-term oral anticoagulation. Findings were discussed with patient's son at bedside with help of news clipping cutter. Will sign of the case. Thank you for allowing us to partake in the care Fall Risk Details Current Medications: Current Medications Generic Name Dose Route Start Last Admin Trade Name Freq PRN Reason Stop Dose Admin Atorvastatin Calcium 40 mg 03/10/21 21:00 03/10/21 20:49 Atorvastatin Calcium 40 Mg Tablet PO 40 mg BEDTIME JOSH Administration Heparin Sodium (Porcine) 2,400 unit 03/10/21 05:00 03/10/21 20:52 Heparin Sodium,Porcine 5,000 Unit/Ml Vial 40 unit/kg (2400 unit) 2,400 unit IVPUSH Administration BOLUS PRN 40 unit/kg - Heparin Protocol Heparin Sodium (Porcine) 4,800 unit 03/10/21 05:00 Heparin Sodium,Porcine 5,000 Unit/Ml Vial 80 unit/kg (4800 unit) IVPUSH BOLUS PRN 80 unit/kg - Heparin Protocol Hydromorphone HCl 0.5 mg 03/10/21 09:31 03/10/21 09:46 Hydromorphone Hcl 0.5 Mg/0.5 Ml Syringe IVPUSH 0.5 mg Q2H PRN Administration Pain, Mild (Pain Scale 1-3) Heparin Sodium/Sodium Chloride 25,000 unit in 250 mls @ 0 mls/hr 03/10/21 04:00 03/11/21 10:17 IVCONT 12 units/kg/hr .Q0M JOSH 7.24 mls/hr Titration Protocol Per Protocol Time Spent With Patient Time: Total time spent is greater than 50% in coordination of care (as documented) at patient's floor/unit and/or counseling patient: Time with patient: 15 - 24 minutes Progress Note: Quality Stroke Does the patient have a stroke diagnosis?: No Procedures Date of Service Date of Service: 03/11/21
[2021-03-11 10:50] LABS: B Type Natriuretic Peptide 1321 pg/mL (<100); Troponin-I High Sensitivity 1005.8 ng/L (<3.5-17.0)
--- NOTE | 2021-03-11 10:57 | MHC.CM.PN ---
Per ROUNDS discussion, Patient will be evaluated by PT.Presently, Patient is on IV Heparin and IV Dilaudid. Home/resume total care from family and new [facility] is the goal for dc and CM will follow for possible need to adjust the dc plan.
[2021-03-11] MEDS: Acetaminophen 325 MG TABLET 650 MG PO (11:49)
--- NOTE | 2021-03-11 13:17 | HO.PM.IMPN ---
Subjective Subjective Date of Service: 03/11/21 Interval History: seen and examined this morning, resting in bed comfortably awake and alert, unable to provide much history Review of Systems Review of Systems: Yes Unobtainable due to mental condition Physical Exam Vital Signs: Vital Signs: Last Vital Signs Temp 98.6 F 03/11/21 11:19 Pulse 97 03/11/21 12:00 Resp 12 03/11/21 11:19 BP 143/85 H 03/11/21 12:00 Pulse Ox 97 03/11/21 12:00 Body Mass Index 25.6 Const: General: comfortable, alert and awake Nutritional Appearance: well nourished HENMT: Head: Yes normocephalic and Yes atraumatic Eyes: Sclerae: sclerae normal Chest: Chest palpation & inspection: normal inspection of the chest Resp: Effort & Inspection: normal respiratory effort and no respiratory distress Cardio: Rate: regular rate Rhythm: regular rhythm GI: Palpation (GI): Soft to palpation and nontender Neuro: Cranial nerves: Yes CN's II-XII intact bilaterally and Yes Bilaterally intact EOM present Extrem: Other: no edema Objective Data Current Medications Generic Name Dose Route Start Last Admin Trade Name Freq PRN Reason Stop Dose Admin Acetaminophen 650 mg 03/11/21 11:22 03/11/21 11:49 Acetaminophen 325 Mg Tablet PO 650 mg Q6H PRN Administration Pain, Mild (Pain Scale 1-3), f Atorvastatin Calcium 40 mg 03/10/21 21:00 03/10/21 20:49 Atorvastatin Calcium 40 Mg Tablet PO 40 mg BEDTIME JOSH Administration Heparin Sodium (Porcine) 2,400 unit 03/10/21 05:00 03/10/21 20:52 Heparin Sodium,Porcine 5,000 Unit/Ml Vial 40 unit/kg (2400 unit) 2,400 unit IVPUSH Administration BOLUS PRN 40 unit/kg - Heparin Protocol Heparin Sodium (Porcine) 4,800 unit 03/10/21 05:00 Heparin Sodium,Porcine 5,000 Unit/Ml Vial 80 unit/kg (4800 unit) IVPUSH BOLUS PRN 80 unit/kg - Heparin Protocol Heparin Sodium/Sodium Chloride 25,000 unit in 250 mls @ 0 mls/hr 03/10/21 04:00 03/11/21 10:17 IVCONT 12 units/kg/hr .Q0M JOSH 7.24 mls/hr Titration Protocol Per Protocol Ondansetron HCl 4 mg 03/11/21 11:23 Ondansetron Hcl 4 Mg/2 Ml Vial IVPUSH Q8H PRN Nausea Labs CBC & Chem 7: 03/11/21 09:51 03/11/21 09:51 Labs: Laboratory Results - last 24 hr 03/10/21 03/10/21 03/10/21 16:16 18:32 18:32 WBC RBC Hgb 9.6 L Hct 30.3 L MCV MCH MCHC RDW Plt Count MPV Absolute Nucleated RBC Nucleated RBC % (auto) PTT (Heparin Protocol) 50.9 L D Sodium Potassium Chloride Carbon Dioxide Anion Gap BUN Creatinine Estim Creat Clear Calc Estimated GFR Random Glucose Calcium Troponin I High Sens B-Natriuretic Peptide Urine Color YELLOW Urine Appearance CLEAR Urine pH 6.0 Ur Specific [place] 1.020 Urine Protein TRACE Urine Glucose (UA) NEG Urine Ketones NEG Urine Blood 1+ H Urine Nitrite NEG Ur Leukocyte Esterase 2+ H Urine RBC 10-14 H Urine WBC 76-150 H Urine WBC Clumps NOTED Ur Squamous Epith Cells TRACE Urine Bacteria TRACE 03/10/21 03/11/21 03/11/21 18:32 03:05 09:51 WBC RBC Hgb Hct MCV MCH MCHC RDW Plt Count MPV Absolute Nucleated RBC Nucleated RBC % (auto) PTT (Heparin Protocol) 65.5 D 62.8 Sodium 147 H Potassium 4.6 Chloride 120 H Carbon Dioxide 18 L Anion Gap 14 BUN 61 H Creatinine 2.53 H Estim Creat Clear Calc 16.1 Estimated GFR 19 Random Glucose 76 D Calcium 8.4 Troponin I High Sens B-Natriuretic Peptide Urine Color Urine Appearance Urine pH Ur Specific [place] Urine Protein Urine Glucose (UA) Urine Ketones Urine Blood Urine Nitrite Ur Leukocyte Esterase Urine RBC Urine WBC Urine WBC Clumps Ur Squamous Epith Cells Urine Bacteria 03/11/21 03/11/21 03/11/21 09:51 09:51 09:51 WBC 8.0 RBC 4.35 Hgb 11.6 L D Hct 36.9 L D MCV 84.8 MCH 26.7 L MCHC 31.4 RDW 16.3 H Plt Count 228 MPV 11.1 Absolute Nucleated RBC 0.000 Nucleated RBC % (auto) 0.0 PTT (Heparin Protocol) Sodium 146 H Potassium 4.5 Chloride 119 H Carbon Dioxide 18 L Anion Gap 14 BUN 48 H Creatinine 1.77 H Estim Creat Clear Calc 23.0 Estimated GFR 28 Random Glucose 109 D Calcium 8.4 Troponin I High Sens 1005.8 H* B-Natriuretic Peptide 1321 H Urine Color Urine Appearance Urine pH Ur Specific [place] Urine Protein Urine Glucose (UA) Urine Ketones Urine Blood Urine Nitrite Ur Leukocyte Esterase Urine RBC Urine WBC Urine WBC Clumps Ur Squamous Epith Cells Urine Bacteria Microbiology Microbiology Results: Microbiology 03/09/21 Unknown Urine Culture - Preliminary Urine clean catch - Urine tristan top Gram negative ovi 03/09/21 12:47 Blood Culture - Preliminary Blood - Venous No growth after 24 hours. 03/09/21 12:47 Blood Culture - Preliminary Blood - Venous No growth after 24 hours. 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 intake found to be hypotensive requiring vasopressive and admitted to the ICU. Further investigation revealed PE and b/l DVT resulting in cor pulmonale and shock treated with tPA and AC with heparin in the setting of likely breast cancer recurrance, downgraded from the ICU on 03/10. PE/ b/l DVT s/p tPA. currently hemodynamically stable in the setting of likely recurrence of breast cancer -continue heparin drip for now Recurrent breast cancer multiple pulmonary nodules, right breast spiculated lesion seen on imaging - oncology consult right heart failure secondary to massive left sided PE. Responded well to tPA and heparinization. BN, troponin trending down -cardiology following Acute on chronic kidney injury. in setting of hypotension/shock -renal function improving -avoid nephrotoxins -follow BMP UTI urine culture growing Gram-negative rods - IV ceftriaxone day #2 -blood cultures negative x 24 hours SVT episode of SVT while in ICU requiring adenosine currently in sinus rhythm HTN antihypertensive initially held to hypotension/shock -hold lisinopril for KELSY - consider resuming Norvasc, metoprolol tomorrow if blood pressure remains stable h/o cva with left hemiparesis/speech deficit -continue statin, ?not on anti-platelet dementia -memantine NF dvt ppx - heparin code status - full code Attending - Dr. roque hamm. plan to return home to resume / care when medically ready
[2021-03-11] MEDS: cefTRIAXone sodium 1 GM in 0.9 % Sodium Chloride 50 ML IV (14:33)
[2021-03-11] MEDS: Atorvastatin Calcium 40 MG TABLET PO (20:18)
[2021-03-12] VITALS (9 sets, daily range): BP systolic 135–183; BP diastolic 67–97; PULSE 76–120; RESP 16–20; TEMP 35.8–36.7; O2SAT 92–100; BMI 25.8
[2021-03-12] MEDS: Heparin Sodium,Porcine/1/2NS 25,000 UNIT/250 ML IV.SOLN 7.24 UNIT IVCONT (05:06)
[2021-03-12 05:14] LABS: PTT Heparin Drip 56.8 SEC (53-77.9)
[2021-03-12 05:47] LABS: Anion Gap 16 (12-20); Blood Urea Nitrogen 29 mg/dL (9-16); Calcium 8.3 mg/dL (8.4-10.2); Carbon Dioxide 16 mmol/L (22-29); Chloride 115 mmol/L (96-108); Creatinine Clr Calc Pharmacy 32.1; Estimated Glomerular Filt Rate 41; Glucose Random 90 mg/dL (60-115); Potassium 4.3 mmol/L (3.3-5.1); Sodium 143 mmol/L (135-145)
[2021-03-12 06:56] LABS: Hematocrit 37.9 % (37-47); Mean Corpuscular HGB Conc 31.7 g/dl (31.0-35.0); Mean Corpuscular Hemoglobin 26.4 pg (27.0-33.0); Mean Corpuscular Volume 83.5 fL (80-98); Mean Platelet Volume 11.2 fL (9.4-12.3); Platelet Count 259 X10*3/uL (160-400); Red Blood Count 4.54 X10*6/uL (4.20-5.50); White Blood Count 7.8 X10*3/uL (4.8-10.8)
[2021-03-12] MEDS: amLODIPine Besylate 5 MG TABLET PO (10:37)
--- NOTE | 2021-03-12 11:24 | HO.PM.IMPN ---
Subjective Subjective Date of Service: 03/12/21 <AL Gorman - Last Filed: 03/12/21 11:31> 03/12/21 <Baltazar Acharya MD - Last Filed: 03/12/21 15:45> Interval History: seen and examined this morning, follow up for PE causing right heart failure/shock h/o dementia and cva, difficult to obtain history appears comfortable <AL Gorman - Last Filed: 03/12/21 11:31> Review of Systems Review of Systems: Yes Unobtainable due to mental condition <AL Gorman - Last Filed: 03/12/21 11:31> Physical Exam Vital Signs: Vital Signs: Last Vital Signs Temp 96.5 F L 03/12/21 07:39 Pulse 105 H 03/12/21 10:37 Resp 20 03/12/21 07:39 BP 173/97 H 03/12/21 10:37 Pulse Ox 96 03/12/21 07:39 Body Mass Index 25.8 <AL Gorman - Last Filed: 03/12/21 11:31> Const: General: comfortable, alert and awake <AL Gorman - Last Filed: 03/12/21 11:31> Nutritional Appearance: well nourished <AL Gorman Last Filed: 03/12/21 11:31> HENMT: Head: Yes normocephalic and Yes atraumatic <AL Gorman - Last Filed: 03/12/21 11:31> Eyes: Sclerae: sclerae normal <AL Gorman - Last Filed: 03/12/21 11:31> Chest: Chest palpation & inspection: normal inspection of the chest <AL Gorman Last Filed: 03/12/21 11:31> Resp: Effort & Inspection: normal respiratory effort and no respiratory distress <AL Gorman - Last Filed: 03/12/21 11:31> Cardio: Rate: regular rate <AL Gorman Last Filed: 03/12/21 11:31> Rhythm: regular rhythm <AL Gorman - Last Filed: 03/12/21 11:31> GI: Palpation (GI): Soft to palpation and nontender <AL Gorman Last Filed: 03/12/21 11:31> Neuro: Cranial nerves: Yes CN's II-XII intact bilaterally and Yes Bilaterally intact EOM present <AL Gorman Last Filed: 03/12/21 11:31> Extrem: Other: no edema <AL Gorman - Last Filed: 03/12/21 11:31> Objective Data Current Medications Generic Name Dose Route Start Last Admin Trade Name Freq PRN Reason Stop Dose Admin Acetaminophen 650 mg 03/11/21 11:22 03/11/21 11:49 Acetaminophen 325 Mg Tablet PO 650 mg Q6H PRN Administration Pain, Mild (Pain Scale 1-3), f Amlodipine Besylate 5 mg 03/12/21 09:45 03/12/21 10:37 Amlodipine Besylate 5 Mg Tablet PO 5 mg DAILY JOSH Administration Protocol Atorvastatin Calcium 40 mg 03/10/21 21:00 03/11/21 20:18 Atorvastatin Calcium 40 Mg Tablet PO 40 mg BEDTIME JOSH Administration Enoxaparin Sodium 60 mg 03/12/21 12:00 Enoxaparin Sodium 60 Mg/0.6 Ml Syringe 1 mg/kg (60 mg) SUBCUT Q12H JOSH Ceftriaxone Sodium 1 gm/ 50 mls @ 100 mls/hr 03/11/21 15:00 03/11/21 15:15 Sodium Chloride IV Infused Q24H JOSH Infusion Metoprolol Tartrate 50 mg 03/12/21 10:59 Metoprolol Tartrate 50 Mg Tablet PO BID JOSH Protocol Ondansetron HCl 4 mg 03/11/21 11:23 Ondansetron Hcl 4 Mg/2 Ml Vial IVPUSH Q8H PRN Nausea <AL Gorman Last Filed: 03/12/21 11:31> Labs CBC & Chem 7: : 03/12/21 05:45 03/12/21 04:57 <AL Gorman Last Filed: 03/12/21 11:31> Labs: Laboratory Results - last 24 hr 03/12/21 03/12/21 03/12/21 04:57 04:57 05:45 WBC 7.8 RBC 4.54 Hgb 12.0 Hct 37.9 MCV 83.5 MCH 26.4 L MCHC 31.7 RDW 16.0 Plt Count 259 MPV 11.2 Absolute Nucleated RBC 0.000 Nucleated RBC % (auto) 0.0 PTT (Heparin Protocol) 56.8 Sodium 143 Potassium 4.3 Chloride 115 H Carbon Dioxide 16 L Anion Gap 16 BUN 29 H Creatinine 1.27 Estim Creat Clear Calc 32.1 Estimated GFR 41 Random Glucose 90 Calcium 8.3 L <AL Gorman - Last Filed: 03/12/21 11:31> Microbiology Microbiology Results: Microbiology 03/09/21 Unknown Urine Culture - Final Urine clean catch - Urine tristan top Escherichia coli Lactobacillus species 03/09/21 12:47 Blood Culture - Preliminary Blood - Venous No growth after 48 hours. 03/09/21 12:47 Blood Culture - Preliminary Blood - Venous No growth after 48 hours. <AL Gorman - Last Filed: 03/12/21 11:31> Quality Stroke Does the patient have a stroke diagnosis?: No <AL Gorman - Last Filed: 03/12/21 11:31> VTE Prior VTE?: No <AL Gorman - Last Filed: 03/12/21 11:31> VTE Risk Level:: Medical - moderate - high <AL Gorman - Last Filed: 03/12/21 11:31> VTE Device Contraindication: N/A - Device Ordered <AL Gorman - Last Filed: 03/12/21 11:31> VTE Drug Contraindication: N/A - Med Ordered <AL Gorman - Last Filed: 03/12/21 11:31> Assessment and Plan (1) Breast cancer: Status: Acute <AL Gorman - Last Filed: 03/12/21 11:31> (2) Shock circulatory: Status: Acute <AL Gorman - Last Filed: 03/12/21 11:31> (3) Acute cor pulmonale: Status: Acute <AL Gorman - Last Filed: 03/12/21 11:31> (4) Acute massive pulmonary embolism: Status: Acute <AL Gorman - Last Filed: 03/12/21 11:31> (5) Acute renal failure: Status: Acute <AL Gorman - Last Filed: 03/12/21 11:31> Assessment and Plan: this is a 75-year-old female with 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 intake found to be hypotensive requiring vasopressive and admitted to the ICU. Further investigation revealed PE and b/l DVT resulting in cor pulmonale and shock treated with tPA and AC with heparin in the setting of likely breast cancer recurrance, downgraded from the ICU on 03/10. PE/ b/l DVT s/p tPA. currently hemodynamically stable in the setting of likely recurrence of breast cancer s/p heparin drip x 48 hours, will transition to therapeutic lovenox per heme/onc Recurrent breast cancer multiple pulmonary nodules, right breast spiculated lesion seen on imaging - oncology consult - plan for outpatient breast biopsy right heart failure secondary to massive left sided PE. Responded well to tPA and heparinization. BNP, troponin trending down -seen by cardiology Acute on chronic kidney injury. in setting of hypotension/shock -renal function improving, Creatinine down to 1.27 from 5.22 -follow BMP UTI urine culture growing esbl negative e.coli - IV ceftriaxone day #3, can be transitioned to po ceftin on discharge -blood cultures from 03/09 negative SVT episode of SVT while in ICU requiring adenosine currently in sinus rhythm HTN antihypertensive initially held to hypotension/shock. blood pressure now reboudning -hold lisinopril for KELSY - will resume Norvasc, metoprolol -monitor blood pressure closely h/o cva with left hemiparesis/speech deficit -continue statin dementia -memantine NF dvt ppx - heparin code status - full code Attending - Dr. Marck hamm. plan to return home to resume 02/04 care when medically ready <AL Gorman - Last Filed: 03/12/21 11:31>
[2021-03-12] MEDS: Enoxaparin Sodium 60 MG/0.6 ML SYRINGE SUBCUT ×2 (12:08→23:36)
[2021-03-12] MEDS: Metoprolol Tartrate 50 MG TABLET PO ×2 (12:08→21:21)
[2021-03-12] MEDS: cefTRIAXone sodium 1 GM in 0.9 % Sodium Chloride 50 ML IV (14:29)
[2021-03-12] MEDS: Acetaminophen 325 MG TABLET 650 MG PO (17:23)
--- NOTE | 2021-03-12 18:02 | PC.NURSE ---
PTT drip d/c'ed per hospitalist. Patient in the recliner for majority of the day, repeatedly jumping up out of bed/recliner, wherever she was positioned. Telesitter in place. Family present for majority of the day.
[2021-03-12] MEDS: LORazepam 0.5 MG TABLET 0.25 MG PO (21:21)
[2021-03-12] MEDS: Atorvastatin Calcium 40 MG TABLET PO (21:21)
[2021-03-13] VITALS (8 sets, daily range): BP systolic 96–146; BP diastolic 57–79; PULSE 69–92; RESP 15–20; TEMP 35.7–36.6; O2SAT 94–98
[2021-03-13 05:26] LABS: Hematocrit 36.5 % (37-47); Hemoglobin 11.4 g/dl (12.0-16.0); Mean Corpuscular HGB Conc 31.2 g/dl (31.0-35.0); Mean Corpuscular Volume 83.3 fL (80-98); Mean Platelet Volume 10.9 fL (9.4-12.3); Platelet Count 269 X10*3/uL (160-400); Red Blood Count 4.38 X10*6/uL (4.20-5.50); Red Cell Distribution Width 15.8 % (11.0-16.0); White Blood Count 7.3 X10*3/uL (4.8-10.8)
[2021-03-13 05:36] LABS: PTT Heparin Drip 38.1 SEC (53-77.9)
[2021-03-13 05:40] LABS: Anion Gap 15 (12-20); Blood Urea Nitrogen 18 mg/dL (9-16); Calcium 8.3 mg/dL (8.4-10.2); Carbon Dioxide 17 mmol/L (22-29); Chloride 110 mmol/L (96-108); Estimated Glomerular Filt Rate 51; Glucose Random 92 mg/dL (60-115); Potassium 3.9 mmol/L (3.3-5.1); Sodium 138 mmol/L (135-145)
[2021-03-13] MEDS: Metoprolol Tartrate 50 MG TABLET PO ×2 (09:44→20:40)
[2021-03-13] MEDS: amLODIPine Besylate 5 MG TABLET PO (09:44)
[2021-03-13] MEDS: Enoxaparin Sodium 60 MG/0.6 ML SYRINGE SUBCUT (11:58)
--- NOTE | 2021-03-13 12:16 | P.PNIM_ITS ---
Subjective Subjective Date of Service: 03/13/21 Interval History: seen and examined this morning, follow up for PE causing right heart failure/shock and had thrombolytic therapy, she is confused but this seem to be her baseline, no other distress Review of Systems Unable to reliable get, she repeats what I say Physical Exam Vital Signs: Vital Signs: Last Vital Signs Temp 96.5 F L 03/13/21 11:17 Pulse 69 03/13/21 11:17 Resp 15 03/13/21 11:17 BP 140/66 H 03/13/21 11:17 Pulse Ox 96 03/13/21 08:00 Body Mass Index 25.8 Const: Other: General: alert, not oriented, no acute distress Resp: CTA bilateral CVS: S1,S2,RRR GI: +BS, NT, no distention Skin: No rash, a right sided neck TLC Neuro: motor grossly intact Psych: flat Objective Data Current Medications Generic Name Dose Route Start Last Admin Trade Name Freq PRN Reason Stop Dose Admin Acetaminophen 650 mg 03/11/21 11:22 03/12/21 17:23 Acetaminophen 325 Mg Tablet PO 650 mg Q6H PRN Administration Pain, Mild (Pain Scale 1-3), f Amlodipine Besylate 5 mg 03/12/21 09:45 03/13/21 09:44 Amlodipine Besylate 5 Mg Tablet PO 5 mg DAILY JOSH Administration Protocol Atorvastatin Calcium 40 mg 03/10/21 21:00 03/12/21 21:21 Atorvastatin Calcium 40 Mg Tablet PO 40 mg BEDTIME JOSH Administration Enoxaparin Sodium 60 mg 03/12/21 12:00 03/13/21 11:58 Enoxaparin Sodium 60 Mg/0.6 Ml Syringe 1 mg/kg (60 mg) 60 mg SUBCUT Administration Q12H JOSH Ceftriaxone Sodium 1 gm/ 50 mls @ 100 mls/hr 03/11/21 15:00 03/12/21 15:02 Sodium Chloride IV Infused Q24H JOSH Infusion Lorazepam 0.25 mg 03/12/21 17:53 03/12/21 21:21 Lorazepam 0.5 Mg Tablet PO 0.25 mg Q6H PRN Administration Anxiety Metoprolol Tartrate 50 mg 03/12/21 10:59 03/13/21 09:44 Metoprolol Tartrate 50 Mg Tablet PO 50 mg BID JOSH Administration Protocol Ondansetron HCl 4 mg 03/11/21 11:23 Ondansetron Hcl 4 Mg/2 Ml Vial IVPUSH Q8H PRN Nausea Labs CBC & Chem 7: 03/13/21 04:50 03/13/21 04:50 Labs: Laboratory Results - last 24 hr 03/13/21 03/13/21 03/13/21 04:50 04:50 04:50 WBC 7.3 RBC 4.38 Hgb 11.4 L Hct 36.5 L MCV 83.3 MCH 26.0 L MCHC 31.2 RDW 15.8 Plt Count 269 MPV 10.9 Absolute Nucleated RBC 0.000 Nucleated RBC % (auto) 0.0 PTT (Heparin Protocol) 38.1 L D Sodium 138 Potassium 3.9 Chloride 110 H Carbon Dioxide 17 L Anion Gap 15 BUN 18 H Creatinine 1.05 Estim Creat Clear Calc 39.0 Estimated GFR 51 Random Glucose 92 Calcium 8.3 L Microbiology Microbiology Results: Microbiology 03/09/21 Unknown Urine Culture - Final Urine clean catch - Urine tristan top Escherichia coli Lactobacillus species Quality Stroke Does the patient have a stroke diagnosis?: No VTE Prior VTE?: No VTE Risk Level:: Medical - moderate - high VTE Device Contraindication: N/A - Device Ordered VTE Drug Contraindication: N/A - Med Ordered Assessment and Plan (1) Breast cancer: Status: Acute (2) Shock circulatory: Status: Acute (3) Acute cor pulmonale: Status: Acute (4) Acute massive pulmonary embolism: Status: Acute (5) Acute renal failure: Status: Acute Assessment and Plan: 75-year-old female with 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 intake found to be hypotensive requiring vasopressive and admitted to the ICU. Further inv estigation revealed PE and b/l DVT resulting in cor pulmonale and shock treated with tPA and AC with heparin in the setting of likely breast cancer recurrance, downgraded from the ICU on 03/10. PE/ b/l DVT s/p tPA. currently hemodynamically stable in the setting of likely recurrence of breast cancer s/p heparin drip x 48 hours, now transitioned to therapeutic lovenox per heme/onc--adjust dose based on new Creatine level Recurrent breast cancer multiple pulmonary nodules, right breast spiculated lesion seen on imaging - oncology consult - plan for outpatient breast biopsy right heart failure secondary to massive left sided PE. Responded well to tPA and heparinization. BNP, troponin trendeddown -seen by cardiology Acute on chronic kidney injury. in setting of hypotension/shock -renal function improving, Creatinine down to 1.05 from 5.22 -follow BMP UTI urine culture growing esbl negative e.coli - IV ceftriaxone day #4, can be transitioned to po ceftin on discharge -blood cultures from 03/09 negative SVT episode of SVT while in ICU requiring adenosine, likely hypoxic related from PE currently in sinus rhythm HTN antihypertensive initially held to hypotension/shock. blood pressure now reboudning -hold lisinopril for KELSY - restartedon Norvasc, metoprolo -restart Lisinopril tomorrowl -monitor blood pressure closely h/o cva with left hemiparesis/speech deficit -continue statin dementia -memantine NF dvt ppx - heparin code status - full code A dispo. plan to return home to resume 02/04 care when medically ready
[2021-03-13] MEDS: cefTRIAXone sodium 1 GM in 0.9 % Sodium Chloride 50 ML IV (14:22)
[2021-03-13] MEDS: LORazepam 0.5 MG TABLET 0.25 MG PO (15:58)
[2021-03-13] MEDS: Atorvastatin Calcium 40 MG TABLET PO (20:39)
[2021-03-14] VITALS (8 sets, daily range): BP systolic 105–139; BP diastolic 52–86; PULSE 62–84; RESP 16–20; TEMP 36.1–37.2; O2SAT 97–99
[2021-03-14] MEDS: Enoxaparin Sodium 60 MG/0.6 ML SYRINGE SUBCUT ×2 (00:22→10:50)
[2021-03-14] MEDS: LORazepam 0.5 MG TABLET 0.25 MG PO ×2 (06:22→18:40)
[2021-03-14] MEDS: amLODIPine Besylate 5 MG TABLET PO (08:52)
[2021-03-14] MEDS: Metoprolol Tartrate 50 MG TABLET PO ×2 (08:52→21:09)
[2021-03-14] MEDS: oxyCODONE HCl Immed Release 5 MG TABLET PO ×2 (10:49→19:19)
--- NOTE | 2021-03-14 13:08 | PM.IMPN ---
Subjective Subjective Date of Service: 03/14/21 <Lupe Cook NP - Last Filed: 03/14/21 13:15> 03/14/21 <Baltazar Acharya MD - Last Filed: 03/14/21 13:39> Interval History: Follow up <Lupe Cook NP - Last Filed: 03/14/21 13:15> Physical Exam Vital Signs: Vital Signs: Last Vital Signs Temp 98.5 F 03/14/21 07:24 Pulse 62 03/14/21 11:58 Resp 20 03/14/21 11:58 BP 106/52 L 03/14/21 11:58 Pulse Ox 98 03/14/21 11:58 Body Mass Index 25.8 <Lupe Cook NP - Last Filed: 03/14/21 13:15> Appearing in no acute distress lung sounds are clear to auscultation heart regular rate rhythm, clear S1, S2 positive bowel sounds, abdomen is soft, nontender neuro patient is alert x3, no focal deficits <Lupe Cook NP - Last Filed: 03/14/21 13:15> Objective Data Current Medications Generic Name Dose Route Start Last Admin Trade Name Freq PRN Reason Stop Dose Admin Acetaminophen 650 mg 03/11/21 11:22 03/12/21 17:23 Acetaminophen 325 Mg Tablet PO 650 mg Q6H PRN Administration Pain, Mild (Pain Scale 1-3), f Amlodipine Besylate 5 mg 03/12/21 09:45 03/14/21 08:52 Amlodipine Besylate 5 Mg Tablet PO 5 mg DAILY JOSH Administration Protocol Atorvastatin Calcium 40 mg 03/10/21 21:00 03/13/21 20:39 Atorvastatin Calcium 40 Mg Tablet PO 40 mg BEDTIME JOSH Administration Enoxaparin Sodium 60 mg 03/12/21 12:00 03/14/21 10:50 Enoxaparin Sodium 60 Mg/0.6 Ml Syringe 1 mg/kg (60 mg) 60 mg SUBCUT Administration Q12H JOSH Ceftriaxone Sodium 1 gm/ 50 mls @ 100 mls/hr 03/11/21 15:00 03/13/21 14:59 Sodium Chloride IV Infused Q24H JOSH Infusion Lorazepam 0.25 mg 03/12/21 17:53 03/14/21 06:22 Lorazepam 0.5 Mg Tablet PO 0.25 mg Q6H PRN Administration Anxiety Metoprolol Tartrate 50 mg 03/12/21 10:59 03/14/21 08:52 Metoprolol Tartrate 50 Mg Tablet PO 50 mg BID JOSH Administration Protocol Ondansetron HCl 4 mg 03/11/21 11:23 Ondansetron Hcl 4 Mg/2 Ml Vial IVPUSH Q8H PRN Nausea Oxycodone HCl 5 mg 03/14/21 08:49 03/14/21 10:49 Oxycodone Hcl Immed Release 5 Mg Tablet PO 5 mg Q6H PRN Administration pain <Lupe Cook NP - Last Filed: 03/14/21 13:15> Labs CBC & Chem 7: : 03/13/21 04:50 03/13/21 04:50 <Lupe Cook NP - Last Filed: 03/14/21 13:15> Microbiology Microbiology Results: Microbiology 03/09/21 Unknown Urine clean catch - Urine tristan top Urine Culture - Final Escherichia coli Lactobacillus species 03/09/21 12:47 Blood - Venous Blood Culture - Preliminary No growth after 48 hours. 03/09/21 12:47 Blood - Venous Blood Culture - Preliminary No growth after 48 hours. <Lupe Cook NP - Last Filed: 03/14/21 13:15> Progress Note: A&P (1) Breast cancer: Status: Acute <Lupe Cook NP - Last Filed: 03/14/21 13:15> Assessment and Plan: 75-year-old female with 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 intake found to be hypotensive requiring vasopressive and admitted to the ICU. Further investigation revealed PE and b/l DVT resulting in cor pulmonale and shock treated with tPA and AC with heparin in the setting of likely breast cancer recurrance, downgraded from the ICU on 03/10. PE/ b/l DVT s/p TPA. currently hemodynamically stable in the setting of likely recurrence of breast cancer s/p heparin drip x 48 hours, transitioned to therapeutic lovenox per heme/onc--adjust dose based on new Creatine level Recurrent breast cancer multiple pulmonary nodules, right breast spiculated lesion seen on imaging - oncology consult - plan for outpatient breast biopsy right heart failure secondary to massive left sided PE. Responded well to tPA and heparinization. BNP, troponin trendeddown -seen by cardiology Acute on chronic kidney injury. in setting of hypotension/shock -renal function improving, Creatinine down to 1.05 from 5.22 -follow BMP UTI urine culture growing esbl negative e.coli - IV ceftriaxone day can be transitioned to po ceftin on discharge -blood cultures from 03/09 negative SVT episode of SVT while in ICU requiring adenosine, likely hypoxic related from PE currently in sinus rhythm HTN antihypertensive initially held to hypotension/shock. blood pressure now rebounding -hold lisinopril for KELSY -restarted on Norvasc, metoprolol -monitor blood pressure closely h/o cva with left hemiparesis/speech deficit -continue statin dementia -memantine NF dvt ppx - heparin code status - full code Attending Dr. Marck hamm. plan to return home to resume 02/04 care when medically ready <Lupe Cook NP - Last Filed: 03/14/21 13:15> Quality Stroke Does the patient have a stroke diagnosis?: No <Lupe Cook NP - Last Filed: 03/14/21 13:15> VTE Prior VTE?: No <Lupe Cook NP - Last Filed: 03/14/21 13:15> VTE Risk Level:: Medical - moderate - high <Lupe Cook NP - Last Filed: 03/14/21 13:15> VTE Device Contraindication: N/A - Device Ordered <Lupe Cook NP - Last Filed: 03/14/21 13:15> VTE Drug Contraindication: N/A - Med Ordered <Lupe Cook NP - Last Filed: 03/14/21 13:15>
[2021-03-14] MEDS: cefTRIAXone sodium 1 GM in 0.9 % Sodium Chloride 50 ML IV (16:20)
[2021-03-14] MEDS: Atorvastatin Calcium 40 MG TABLET PO (21:09)
[2021-03-15] MEDS: Enoxaparin Sodium 60 MG/0.6 ML SYRINGE SUBCUT ×2 (01:08→11:26)
[2021-03-15 03:33] VITALS: BP 146/73; PULSE 84; RESP 18; TEMP 36.1; O2SAT 94
[2021-03-15 06:53] VITALS: BP 140/67; PULSE 80; RESP 18; TEMP 36; O2SAT 96
[2021-03-15 07:26] VITALS: BP 140/67; PULSE 80
[2021-03-15] MEDS: Metoprolol Tartrate 50 MG TABLET PO (07:26)
[2021-03-15] MEDS: amLODIPine Besylate 5 MG TABLET PO (07:26)
[2021-03-15 08:34] LABS: Hematocrit 38.4 % (37-47); Hemoglobin 12.2 g/dl (12.0-16.0); Mean Corpuscular HGB Conc 31.8 g/dl (31.0-35.0); Mean Corpuscular Hemoglobin 26.7 pg (27.0-33.0); Mean Platelet Volume 10.4 fL (9.4-12.3); Platelet Count 322 X10*3/uL (160-400); Red Blood Count 4.57 X10*6/uL (4.20-5.50); Red Cell Distribution Width 16.4 % (11.0-16.0); White Blood Count 6.8 X10*3/uL (4.8-10.8)
[2021-03-15 08:56] LABS: Anion Gap 15 (12-20); Blood Urea Nitrogen 11 mg/dL (9-16); Carbon Dioxide 22 mmol/L (22-29); Chloride 108 mmol/L (96-108); Creatinine Clr Calc Pharmacy 40.6; Estimated Glomerular Filt Rate 53; Glucose Random 93 mg/dL (60-115); Potassium 3.9 mmol/L (3.3-5.1); Sodium 141 mmol/L (135-145)
--- NOTE | 2021-03-15 09:17 | P.CDIC_ITS ---
CDI Concurrent Query Service Date: 03/15/21 Documentation Clarification: Please clarify if you are treating a proba ble/suspected/likely or confirmed: Acute Cardiogenic Shock Other Shock, please specify if known Acute Cardiogenic Shock Provider Response: Other Other Diagnosis: Acute Cardiogenic Shock PLEASE DO NOT DELETE/MODIFY EXISTING CONTENT Additional information is needed in order to code to the highest accuracy and appropriate Severity of Illness (SOI). Please clarify the information noted below in your progress notes and discharge summary. Risk Factors/Clinical Indicators/Treatments Per Cardiology consult 03/11/21: Acute circulatory shock related to cor pulmonale related to massive pulmonary embolism done extremely well since thrombolic therapy CDS: Pam Vigil RN Contact Number: [phone] Please Review the information above and exercise your independent professional judgment in responding to the query. If you concur, pleas document in the PROGRESS NOTES and DISCHARGE SUMMARY. If you do not agree with the query, please document in the query above. THIS QUERY IS PART OF THE PERMANENT MEDICAL RECORD
--- NOTE | 2021-03-15 10:03 | MHC.CM.PN ---
Per Medical, Patient will be medically cleared for dc to home today with VNA (Lovenox injections to be done by [id number]A referral was made to NA, who has been made aware of today's dc. Second IMM to be addressed today with Patient, at bedside.
[2021-03-15 10:52] VITALS: BP 124/68; PULSE 66; RESP 20; TEMP 36.6; O2SAT 96
[2021-03-15] MEDS: LORazepam 0.5 MG TABLET 0.25 MG PO (11:26)
[2021-03-15] MEDS: oxyCODONE HCl Immed Release 5 MG TABLET PO (12:43)
--- NOTE | 2021-03-15 13:07 | PM.DS ---
DS: Providers Provider Date of Service: 03/15/21 Date of admission: 03/09/21 16:33 Date of discharge: 03/15/21 Primary care physician: Jaycee Drake MD Admitting clinician: Terry Ramirez Attending physician on admission: Terry Ramirez Consults: 03/09/21 17:47 Consult to Cardiology Routine Consulting Provider: Carson Salinas Reason for consultation: right heart failure Has provider been notified: Yes 03/10/21 16:02 Consult to Hematology / Oncology Routine Consulting Provider: Rodolfo Krishna Reason for consultation: Pt with PE and ? right breast ? metastatic cancer. Has provider been notified: Yes 03/11/21 08:41 Consult to Hospitalist Routine Consulting Provider: Junior Esteban Reason For Exam: change in attending Attending physician on discharge: Junior Esteban Discharging clinician: Lupe Cook DS: Diagnosis Discharge Diagnosis (1) Cardiogenic shock: Status: Acute (2) Acute massive pulmonary embolism: Status: Acute (3) Acute renal failure: Status: Acute (4) UTI (urinary tract infection): Status: Acute (5) Hypotension: Status: Acute (6) Breast cancer: Status: Acute DS: Medications Discharge Medications Home Medications: Home Medications Medication Instructions Recorded Confirmed anastrozole 1 mg tablet 1 mg PO DAILY 01/03/21 03/09/21 lisinopril 40 mg tablet 40 mg PO DAILY 01/03/21 03/09/21 memantine 28 mg capsule 28 mg PO DAILY 01/03/21 03/09/21 sprinkle,extended release 24hr metoprolol tartrate 50 mg tablet 50 mg PO BID 01/03/21 03/09/21 amlodipine 5 mg PO DAILY 01/14/21 03/09/21 Previous Rx's Medication Instructions Recorded acetaminophen [Tylenol Extra 1,000 mg PO QID PRN #14 tab 12/29/20 Strength] atorvastatin 40 mg PO BEDTIME #30 tab 01/19/21 cefuroxime axetil 250 mg PO BID #10 tab 03/15/21 enoxaparin 60 mg SUBCUT Q12H 30 Days #36 ml 03/15/21 DS: Summary Hospital Course Hospital Course: HP as per admitting provider Mrs. Aashish Freeman is being admitted to the ICU this afternoon bec of hypotension w right heart failure. History is from the patient's son who is at the bedside in the ED with the patient. My understanding is that the patient lives with him and he is her primary caregiver. The patient is a 75 yo F with PMHx of stroke about ten years ago that left her with left hemiparesis and difficult speech (unclear whether this is aphasia, dysarthria, or both). He also tells me that she has an abdominal wall hernia. They have seen Dr. Gudino for this and he has counseled them that at this time the risk is too high, unless the hernia becomes symptomatic. The patient's labs indicate that she also has CKD. The patient was brought in by ambulance to the ED this morning because of lethargy since yesterday, and she has not been eating or drinking. Upon EMS arrival at the scene, she was found hypotensive. The patient's son denied fever, vomiting, or diarrhea. On admission to the ED, the patient was awake and alert and in no acute distress. She appeared comfortable. She seem to follow simple commands. Temperature was 99.7 degrees. Heart rate was 97, blood pressure was 82/47, respiratory rate was 18-24, and the sat was 98-100% on room air. The general physical exam was reportedly unremarkable. Labs in the ED were notable for a white count of 13.7 (baseline 11), hemoglobin 12.4, normal coags, BUN and creatinine of 87/5.2 (baseline 41/1.5). Bicarb is 19, and potassium is 5.4. LFTs were unremarkable, and the albumin was 3.2. Lactate was 1.9. Troponin was 1526. EKG was unremarkable. Chest x-ray was unremarkable. The patient was given 4 L of normal saline without significant change in her blood pressure. I was called, and want to see the patient in the ED. I interviewed the son, and examined the patient. The patient was fully awake and aware. She does not talk much. Current mental status appears to be her baseline, from what the son tells me. She looks thoroughly non-toxic, and other than her neurologic deficits, looks basically well. Blood pressure was 86/53. She has prominent JVD lying flat. Abdomen is benign. She has some contracture of her left UE, and possibly LE. No edema or obvious extremity swelling . Patient with history of dementia. Admitted with lethargy and very poor appetite. She lives with her son, she recently moved from [place]. She was initially admitted to the ICU due to hypotension requiring vasopressin medications and subsequently developing acute on chronic kidney injury. Renal function improved and creatinine went down from 5.22 to 1.05. She had V/Q scan on March 09 which show high probability for PE with absent perfusion in the entire left lower lobe lingula and part of the left upper lobe. Venous duplex ultrasound found bilateral DVTs. Due to this the patient was diagnosed with cardiogenic shock. she also experienced an episode of SVT requiring adenosine. She developed right-sided heart failure secondary to massive pulmonary embolus. She responded well to tPA and then subsequently heparin. She was transitioned to Lovenox. She has a history of breast cancer and it appears that it has likely reocurred and thus developed embolus. She was also treated for ESBL negative E coli UTI with ceftriaxone and was transitioned to Ceftin for discharge. In terms of her pulmonary embolus and DVT she will be on Lovenox and should follow-up with Hematology for medication management and follow-up of recurrence of breast cancer. She improved significantly and is now safe for discharge back home with her son and VNA referral. She will continue her home medications as prior to admission. Time Spent with Patient Time attestation: Total time spent providing and/or coordinating discharge services: Discharge coordination time: Greater than 30 minutes Quality: Stroke Does the patient have a stroke diagnosis?: No Physical Exam Vital Signs: Vital Signs: Last Vital Signs Temp 98 F 03/15/21 10:52 Pulse 66 03/15/21 10:52 Resp 20 03/15/21 10:52 BP 124/68 03/15/21 10:52 Pulse Ox 96 03/15/21 10:52 Body Mass Index 25.8 Appearing in no acute distress lung sounds are clear to auscultation heart regular rate rhythm, clear S1, S2 positive bowel sounds, abdomen is soft, nontender neuro patient is alert, confused , no focal deficits DS: Data Data Completed and Pending Labs on day of discharge: Laboratory Results - last 24 hr 03/15/21 03/15/21 08:15 08:15 WBC 6.8 RBC 4.57 Hgb 12.2 Hct 38.4 MCV 84.0 MCH 26.7 L MCHC 31.8 RDW 16.4 H Plt Count 322 MPV 10.4 Absolute Nucleated RBC 0.000 Nucleated RBC % (auto) 0.0 Sodium 141 Potassium 3.9 Chloride 108 Carbon Dioxide 22 Anion Gap 15 BUN 11 Creatinine 1.01 Estim Creat Clear Calc 40.6 Estimated GFR 53 Random Glucose 93 Calcium 9.0 D Discharge Plan Discharge Anticipated Discharge Date/Time: 03/15/21 12:57 Patient Disposition: Home Health Service Discharge Diagnosis: pulmonary embolus, deep vein thrombosis recurrent breast cancer acute kidney injury urinary tract infection supraventricular tachycardia congestive heart failure Referrals: Karan DOAN [Outside] - 1 Week Rodolfo Krishna MD [Physician] - 1 Week Jaycee Peters MD [Primary Care Provider] - 1 Week Discharge Medications: New enoxaparin 60 mg/0.6 mL Syringe 60 mg subcut Q12H 30 Days Qty: 36 RF: 0 cefuroxime axetil 250 mg tablet 250 mg PO BID Qty: 10 RF: 0 Continued atorvastatin 40 mg Tablet 40 mg PO BEDTIME Qty: 30 RF: 0 acetaminophen [Tylenol Extra Strength] 500 mg tablet 1,000 mg PO QID PRN (Reason: fever or pain) Qty: 14 RF: 0 amlodipine 5 mg Tablet 5 mg PO DAILY RF: 0 memantine 28 mg capsule,sprinkle,ER 24hr 28 mg PO DAILY RF: 0 anastrozole 1 mg tablet 1 mg PO DAILY RF: 0 lisinopril 40 mg tablet 40 mg PO DAILY RF: 0 metoprolol tartrate 50 mg tablet 50 mg PO BID RF: 0 Discharge Orders: Discharge Order (Routine); Ordered 03/15/21 Ordered By: Lupe Cook Diet: advance to usual diet Activity on Discharge: As tolerated Stand Alone Forms: Patient Portal Discharge page Care Plan Goals: resolution of pulmonary embolus and deep vein thrombosis Health Concerns: pulmonary embolus, deep vein thrombosis recurrent breast cancer acute kidney injury urinary tract infection supraventricular tachycardia congestive heart failure Plan of Treatment: Continue subcutaneous Lovenox and follow-up with horticultural farm manager/oncologist or further workup of recurrent breast cancer Assessment: See discharge summary Discharge Date/Time: 03/15/21 15:00
--- NOTE | 2021-03-15 13:41 | MHC.CM.PN ---
Patient will dc to home today at 2:30 PM via [facility]. CM confirmed with second contact that family will be home waiting for her.
== END 2021-03-15 15:00 | disposition home health service (06) | DRG 175 ==
LOC: HO.ED 14:57 → HO.ICU 16:41 → HO.IMC 03-10 16:50
PROVIDERS: Internal Medicine; Nurse Practitioner Acute Care; Physician Assistant Medical; Admitting Provider Anesthesiology; Emergency Provider Emergency Medicine; PCP Internal Medicine; Visit Provider Family Medicine
DX: I26.09 Other pulmonary embolism with acute cor pulmonale (principal); R57.0 Cardiogenic shock; I82.493 Acute embolism and thrombosis of other specified deep vein of lower extremity, bilateral; I47.1 Supraventricular tachycardia; I69.354 Hemiplegia and hemiparesis following cerebral infarction affecting left non-dominant side; N39.0 Urinary tract infection, site not specified; C50.911 Malignant neoplasm of unspecified site of right female breast; I69.328 Other speech and language deficits following cerebral infarction; I95.9 Hypotension, unspecified; C50.919 Malignant neoplasm of unspecified site of unspecified female breast; E87.5 Hyperkalemia; I50.811 Acute right heart failure; G30.9 Alzheimer's disease, unspecified; F02.80 Dementia in other diseases classified elsewhere, unspecified severity, without behavioral disturbance, psychotic disturbance, mood disturbance, and anxiety; I12.9 Hypertensive chronic kidney disease with stage 1 through stage 4 chronic kidney disease, or unspecified chronic kidney disease; N18.9 Chronic kidney disease, unspecified; Z20.822 Contact with and (suspected) exposure to COVID-19; R91.8 Other nonspecific abnormal finding of lung field; Z87.891 Personal history of nicotine dependence; Z79.899 Other long term (current) drug therapy
CPT/HCPCS: 36415; 71045; 71250; 74176; 78580; 80048; 80053; 81001; 81003; 83605; 83735; 83880; 84100; 84484; 85014; 85018; 85025; 85027; 85379; 85610; 85730; 87040; 87086; 87088; 87186; 87635; 93005; 93306; 93970; 97163; 99285; A9540; J0153; J0696; J1170; J1650; J2997; P9047

== ENCOUNTER 2021-03-18 13:55 | Outpatient (REF) | payer OTHER, SELFPAY ==
--- NOTE | ~2021-03-18 | US_ITS ---
EXAMINATION: US DIAGNOSTIC ULTRASOUND BREAST, RIGHT CLINICAL INFORMATION: Irregular mass seen on CT scan within the right breast. COMPARISON: CT scan of March 10, 2021. TECHNIQUE: Ultrasound of the breast is performed with real-time tristan scale imaging and color Doppler. FINDINGS: Targeted ultrasound evaluation of the right breast demonstrates a region of irregular hypoechoic shadowing tissue however this appears to be related to a region of scarring. Upon questioning of the border was ascertained that patient did have a right breast lumpectomy and radiation therapy 10 years ago in [place]. Results are discussed with the patient at time of visit. US/US breast RT limited IMPRESSION: No suspicious left breast finding. Region of architectural distortion and skin thickening within the right breast is related to patient's previous lumpectomy and radiation therapy. ASSESSMENT: BI-RADS 2: Benign RECOMMENDATION: Routine annual mammography screening due in 12 months.
--- NOTE | ~2021-03-18 | MM_ITS ---
EXAMINATION: MM DIAGNOSTIC DIGITAL BREAST TOMOSYNTHESIS, BILATERAL TARGETED RIGHT BREAST ULTRASOUND CLINICAL INFORMATION: Abnormality seen on CT scan in the right breast. COMPARISON: Mammography: No previous mammography. CT scan of 03/10/2021. TECHNIQUE: Digital breast tomosynthesis is performed in both the craniocaudal and mediolateral oblique views along with computer-aided detection (CAD). Synthesized 2D images are generated from the tomosynthesis. Bilateral exaggerated craniocaudal views performed. Targeted right breast ultrasound. FINDINGS: There are scattered areas of fibroglandular density (ACR BI-RADS breast composition Category b). Left breast appears unremarkable without abnormal dominant mass or suspicious grouping of microcalcifications. No region of architectural distortion seen within the left breast. Within the right breast there is a region of architectural distortion about the upper outer aspect. There is also noted to be skin thickening. Targeted ultrasound evaluation of the right breast demonstrates a region of irregular hypoechoic shadowing tissue, however, this appears to be related to a region of scarring. Upon questioning of the daughter it was ascertained that patient did have a right breast lumpectomy and radiation therapy 10 years ago in [place]. Results are discussed with the patient at time of visit. MM/MM tomosynthesis diagnostic BI IMPRESSION: No suspicious left breast finding. Region of architectural distortion and skin thickening within the right breast is related to patient's previous lumpectomy and radiation therapy. ASSESSMENT: BI-RADS 2: Benign. RECOMMENDATION: Routine annual mammography screening due in 12 months. This patient's information was entered into a reminder system with a target due date for their next mammogram.
== END 2021-03-18 13:56 | disposition home or self-care (01) ==
LOC: HO.MAMMO 13:55
PROVIDERS: PCP Internal Medicine; Visit Provider Internal Medicine Medical Oncology
DX: R92.8 Other abnormal and inconclusive findings on diagnostic imaging of breast (principal)
CPT/HCPCS: 76642; 77062; 77066

== ENCOUNTER 2021-03-25 15:35 | Outpatient (REF) | payer OTHER, SELFPAY ==
--- NOTE | ~2021-03-25 | US_ITS ---
EXAMINATION: US THYROID CLINICAL INFORMATION: Nontoxic single thyroid nodule. COMPARISON: None. TECHNIQUE: Linear transducer grayscale and color Doppler examination with attention to the region of the thyroid. FINDINGS: SIZE: Measurements of the thyroid lobes and nodules are given in sagittal, anteroposterior and transverse dimensions respectively. Right Thyroid Lobe: 2.6 x 1.1 x 1.3 cm, volume 1.9 mL. Parenchyma: The gland echotexture is heterogeneous. Thyroid vascularity is normal. Left Thyroid Lobe: 3.3 x 2.3 x 1.7 cm, volume 6.7 mL. Parenchyma: The gland echotexture is homogeneous. Thyroid vascularity is normal. Isthmus: 0.3 cm in maximum AP dimension. Estimated total number of nodules greater than or equal to 1 cm: 1. 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 Location: Right inferior. Size: 1.0 x 0.6 x 0.7 cm, volume 0.2 mL. Nodule characteristics: Composition: Solid (2). Echogenicity: Hypoechoic (2). Shape: Not taller than wide (0). Margins: Smooth (0). Echogenic Foci: None (0). ACR TI-RADS total points: 4 ACR TI-RADS category: 4 2. Location: Left inferior. Size: 0.8 x 0.6 x 0.7 cm, volume 0.2 mL. Nodule characteristics: Composition: Solid (2). Echogenicity: Isoechoic (1). Shape: Not taller than wide (0). Margins: Smooth (0). Echogenic Foci: None (0). ACR TI-RADS total points: 3 ACR TI-RADS category: 3 3. Location: Left mid. Size: 0.6 x 0.5 x 0.6 cm, volume 0.1 mL. Nodule characteristics: Composition: Cannot be determined (2). Echogenicity: Hyperechoic (1). Shape: Not taller than wide (0). Margins: Ill-defined (0). Echogenic Foci: Macrocalcifications (1). ACR TI-RADS total points: 4 ACR TI-RADS category: 4 NODES: No lymphadenopathy is seen in the tissue surrounding the thyroid gland. US/US thyroid IMPRESSION: Subcentimeter thyroid nodules. Recommend continued follow-up. ACR TI-RADS RECOMMENDATION REFERENCE: Ultrasound-guided fine-needle aspiration, followup ultrasound, no further follow up. * TR1 (0 point) and TR 2 (2 points): No FNA or follow up * TR3 (3 points): FNA if more than or equal to 2.5 cm in maximum dimension, followup ultrasound in 1, 3 and 5 years if 1.5 to 2.4 cm in maximum dimension. * TR4 (4-6 points): FNA if more than or equal to 1.5 cm in maximum dimension, followup ultrasound in 1, 2, 3 and 5 years if 1 to 1.4 cm in maximum dimension. * TR5 (more than or equal to 7 points): FNA if more than or equal to 1 cm in maximum dimension, followup ultrasound every year for 5 years if 0.5 to 0.9 cm in maximum dimension. * TR3, TR4 or TR5 nodules that are below the size threshold for follow up receive no follow up.
== END 2021-03-25 15:36 | disposition home or self-care (01) ==
LOC: HO.US 15:35
PROVIDERS: Visit Provider Internal Medicine
DX: E04.1 Nontoxic single thyroid nodule (principal)
CPT/HCPCS: 76536

== ENCOUNTER 2021-03-31 15:00 | Outpatient (RCR) | payer OTHER, MEDICARE, MEDICAID, SELFPAY ==
[2021-03-17 09:47] VITALS: BP 117/65; PULSE 92; RESP 18; TEMP 36.4; O2SAT 98; BMI 23.8
--- NOTE | 2021-03-17 09:56 | P.PNHO_ITS ---
Medical Summary - Medical Summary Date of Service: 03/17/21 Chief complaint: Follow-up for: 1. PE. 2. Breast cancer. Medical Summary: DIAGNOSIS: 1. Breast cancer. 2. PE. Interval History Interval history: Mallika Freeman is a pleasant 75 year old lady, Here for a follow-up visit. Recent history: She was brought in by ambulance to the ED on 03/09 morning because of lethargy x 1 day. She was not been eating or drinking. She was found hypotensive. The patient's son denied fever, vomiting, or diarrhea. On admission to the ED, the patient was awake and alert and in no acute distress. She appeared comfortable. She seem to follow simple commands. Temperature was 99.7 degrees. Heart rate was 97, blood pressure was 82/47, respiratory rate was 18-24, and the sat was 98-100% on room air. The general physical exam was reportedly unremarkable. DATA BASE: Her labs were notable for a white count of 13.7 (baseline 11), hemoglobin 12.4, normal coags, BUN and creatinine of 87/5.2 (baseline about 41/1.5), bicarb 19, potassium is 5.4, LFTs were unremarkable, albumin was 3.2, lactate was 1.9 and troponin was 1526. EKG was unremarkable. Chest x-ray was unremarkable. She was given 4 L of normal saline without significant change in her blood pressure. Her mental status appeared to be at her baseline. She was non-toxic. Blood pressure was 86/53. She had prominent JVD. Abdomen was benign. No edema or obvious extremity swelling. ECHOCARDIOGRAM done, showed moderate LVH, small pancaked LV cavity with good LVEF, RV was markedly dilated with RV:LV cavity ratio at least 2.0. Septum was flattened and maybe even bowed into the LV in some views, RA is very large, 1-2+ TR by color chary, with CWD jet measuring at least 3.0m/sec, Gradient of 39mm, and IVC was dilated measuring 2.7cm, with minimal inspiratory collapse, estimated CVP 15mm, RVSP estimate at least 51mm. Hospital course: She was started on Levophed and sent for perfusion scan, then admitted to ICU. DDimer came back at 7890. BNP was 1219. Repeat troponin was down to 1094, and repeat BUN/creatinine was down to 75/4.2. The perfusion scan showed ?normal perfusion seen to the entire right lung, and only minimal perfusion seen in left upper lung, with no perfusion seen in the left midlung or lower lobe, all suggestive of high probability for PE.? Duplex scan of her legs showed bilateral DVT. She was given a loading dose of Heparin while we tried to transfer her for catheter-directed thrombolysis. She was given half dose tPA (50mg) and then she was started on a heparin drip. Her BP started coming up almost immediately after the tPA was started and she started making urine. Levophed was taken off. She was breathing easy with room air Sats approaching 100%, the entire time. Review of Systems - Constitutional Reports no additional constitutional complaints - Eyes Reports no additional eye complaints - ENT Reports no additional ear, nose, mouth, and throat complaints - Cardiovascular Reports no additional cardiovascular complaints - Respiratory Reports no additional respiratory complaints - Gastrointestinal Reports no additional gastrointestinal complaints - Genitourinary Reports no additional female genitourinary complaints - Musculoskeletal Reports no additional musculoskeletal complaints - Integumentary/Breasts Skin/Breast: Reports no additional skin complaints - Neurologic Reports no additional neurologic complaints - Psychiatric Reports no additional psychiatric complaints - Endocrine Reports no additional endocrine complaints - Hematologic/Lymphatic Reports no additional hematologic/lymphatic complaints Comments: Swelling of legs. - Allergic/Immunologic Reports no additional allergic/immunologic complaints [facility] Medical History: Medical History (Last Updated 03/17/21 @ 10:13 by Katie Castillo RN) Breast cancer Facial droop Left hemiparesis Thyroid nodule Ventral hernia Functional capacity: independent ambulation Patient : No Family History: Family History (Last Updated 03/17/21 @ 10:19 by Katie Castillo RN) Father Parkinson disease Cardiac disease Mother No problems noted. Unknown Cancer Surgical History: Surgical History (Last Updated 03/17/21 @ 10:13 by Katie Castillo RN) History of lumpectomy of right breast Social History: Social History (Last Reviewed 03/10/21 @ 09:40 by Carson Salinas MD) Living Situation History: Household Members: Family Household Members Other:: son Housing: House Housing Other:: living with others Do you presently have visiting nurse or other home services: No Alcohol History: Unable to assess alcohol history related to: Unknown Alcohol intake: never Tobacco History: Patient Tobacco Use Status: Former Tobacco user Tobacco use type: Cigarette e-Cigarette/Vaping Use: Former Use Second Hand Smoke Exposure: No Advance Directives: Advance Directives Date on File: 03/09/21 Occupation Assessmet: service: No Current occupational status: unemployed Oncology Screenings - ECOG Performance Status ECOG Performance Status: 0 Home Medications and Allergies Home Medications Medication Instructions Recorded Confirmed Type anastrozole 1 mg tablet 1 mg PO DAILY 01/03/21 03/17/21 History lisinopril 40 mg tablet 40 mg PO DAILY 01/03/21 03/17/21 History memantine 28 mg capsule 28 mg PO DAILY 01/03/21 03/17/21 History sprinkle,extended release 24hr metoprolol tartrate 50 mg tablet 50 mg PO BID 01/03/21 03/17/21 History amlodipine 5 mg PO DAILY 01/14/21 03/17/21 History Allergies Allergy/AdvReac Type Severity Reaction Status Date / Time No Known Allergies Allergy Verified 02/28/21 13:08 Exam - Constitutional Present: no acute distress - Routine HEENT Exam Head: Present: normal inspection Eye: Present: normal appearance ENT: Present: mucous membranes moist - Routine Neck Exam Present: full ROM - Routine Respiratory Exam Present: CTAB - Routine Cardiovascular Exam Cardiovascular: Present: RRR, S1, S2 - Routine Abdominal Exam Present: soft, nontender - Routine Rectal Exam Patient deferred: digital exam - Routine Extremities Exam Present: nontender - Routine Back/Spine/Pelvis Exam Back/Spine: Present: full ROM - Routine Skin Exam Present: intact - Routine Neurological Exam Present: alert, oriented X3 - Routine Psychiatric Exam Present: normal affect Progress Note: A/P (1) Acute massive pulmonary embolism Status: Acute Assessment and plan: This is a pleasant 75-year-old lady, who presented with mental status changes and weakness. She was noted to have massive pulmonary emboli. She underwent thrombolytic therapy and is currently on anticoagulation. She will likely need it on the long-term basis. Underlying risk factor is most likely the malignancy. That will be investigated further. Thanks, (2) Breast cancer Status: Acute Assessment and plan: Database: 03/15: CBC: WBC 6.8, HGB 12.2, HCT 38.6, PLT 322. CMP: BUN 11, ACID PLANT HELPER 1.01. LFTs: 1.2/59/. This is a pleasant 75-year-old lady with a previous history of breast cancer. She recently presented with massive PE with hemodynamic compromise. She improved with thrombolytic therapy. CT scan of the chest revealed: Multiple bilateral pulmonary nodules measuring noncalcified 2 mm nodules and 6 mm calcified nodules. No abnormal mediastinal lymph nodes. Right breast spiculated lesion with mild anterior skin thickening. Correlate with clinical exam. Bibasilar minimal pleural effusion/thickening. Nonobstructive radiopaque calculi lower pole right kidney. There is bilateral hydronephrosis. Hyperdense gallbladder sludge. Cannot exclude small stones. Discharge summary from 03/17: Patient admitted with lethargy and very poor appetite. She has history of dementia. She lives with her son, she recently moved from [place]. She was initially admitted to the ICU due to hypotension requiring vasopressin medications and subsequently developing acute on chronic kidney injury. Renal function improved and creatinine went down from 5.22 to 1.05. She had V/Q scan on March 09 which show high probability for PE with absent perfusion in the entire left lower lobe lingula and part of the left upper lobe. Venous duplex ultrasound found bilateral DVTs. Due to this the patient was diagnosed with cardiogenic shock. she also experienced an episode of SVT requiring adenosine. She developed right-sided heart failure secondary to massive pulmonary embolus. She responded well to tPA and then subsequently heparin. She was transitioned to Lovenox. She has a history of breast cancer and it appears that it has likely reocurred and thus developed embolus. She was also treated for ESBL negative E coli UTI with ceftriaxone and was transitioned to Ceftin for discharge. In terms of her pulmonary embolus and DVT she will remain on Lovenox. She improved significantly. I checked with her son to see where she had the original breast cancer, diagnosed and treated. This was in [place]. One of her sons is there. I advised him to get the records to review. I did explain the next step in workup of the breast mass to her family. They had questions about how aggressive it will be. I did explain to them that if the lead the lump grow it may be more disfiguring to her breast. If the tumor turns out to be ER [place] positive, as most likely will be the case 1 can treat her with antiestrogen therapy, with good control. They are willing to proceed with that. PLAN: She will need further investigation including breast biopsy. Will proceed with bilateral mammogram and ultrasound of the right breast. This is being scheduled. Will then proceed with a biopsy, as indicated. Will hold the Lovenox 24 hours prior to the proceedure. All her son and [id number]'s questions were answered to their satisfaction. Thank you, - Time Spent With Patient Time Spent with Patient (in minutes): 35
--- NOTE | 2021-03-17 12:08 | MHC.HEMONC ---
Exam with Dr Krishna. Naveen, evp operations and patient's son, Rodri and ALDO Shikha were present. Labs from 03/15/21 reviewed. Medications/Clinical Summary updated by this RN. Patient denied pain and did not exhibit and nonverbal s/s of pain. Follow up visit scheduled for 03/31/2021.
--- NOTE | 2021-03-31 14:50 | P.PNHO_ITS ---
Medical Summary - Medical Summary Date of Service: 03/31/21 Chief complaint: Follow-up for: Left breast mass. Medical Summary: DIAGNOSIS: 1. Breast cancer. 2. PE. Interval History Interval history: Mallika Freeman is a pleasant 75 year old lady, Here for a follow-up visit. Her son tells me that he has been improving steadily. Since her hospitalization she appears to be less tired. Her breathing is back to normal. She denies chest pain. No cough no sputum. She denies any breast related complaints. No abdominal pain nausea vomiting heartburn indigestion. Bowels are working without any gross blood in it. She is eating well. Weight is stable. She is in good spirits. Rest of the review of systems is unremarkable. Recent history: She was brought in by ambulance to the ED on 03/09 morning because of lethargy x 1 day. She was not been eating or drinking. She was found hypotensive. The patient's son denied fever, vomiting, or diarrhea. On admission to the ED, the patient was awake and alert and in no acute distress. She appeared comfortable. She seem to follow simple commands. Temperature was 99.7 degrees. Heart rate was 97, blood pressure was 82/47, respiratory rate was 18-24, and the sat was 98-100% on room air. The general physical exam was reportedly unremarkable. DATA BASE: Her labs were notable for a white count of 13.7 (baseline 11), hemoglobin 12.4, normal coags, BUN and creatinine of 87/5.2 (baseline about 41/1.5), bicarb 19, potassium is 5.4, LFTs were unremarkable, albumin was 3.2, lactate was 1.9 and troponin was 1526. EKG was unremarkable. Chest x-ray was unremarkable. She was given 4 L of normal saline without significant change in her blood pressure. Her mental status appeared to be at her baseline. She was non-toxic. Blood pressure was 86/53. She had prominent JVD. Abdomen was benign. No edema or obvious extremity swelling. ECHOCARDIOGRAM done, showed moderate LVH, small pancaked LV cavity with good LVEF, RV was markedly dilated with RV:LV cavity ratio at least 2.0. Septum was flattened and maybe even bowed into the LV in some views, RA is very large, 1-2+ TR by color chary, with CWD jet measuring at least 3.0m/sec, Gradient of 39mm, and IVC was dilated measuring 2.7cm, with minimal inspiratory collapse, estimated CVP 15mm, RVSP estimate at least 51mm. Hospital course: She was started on Levophed and sent for perfusion scan, then admitted to ICU. DDimer came back at 7890. BNP was 1219. Repeat troponin was down to 1094, and repeat BUN/creatinine was down to 75/4.2. The perfusion scan showed ?normal perfusion seen to the entire right lung, and only minimal perfusion seen in left upper lung, with no perfusion seen in the left midlung or lower lobe, all suggestive of high probability for PE.? Duplex scan of her legs showed bilateral DVT. She was given a loading dose of Heparin while we tried to transfer her for catheter-directed thrombolysis. She was given half dose tPA (50mg) and then she was started on a heparin drip. Her BP started coming up almost immediately after the tPA was started and she started making urine. Levophed was taken off. She was breathing easy with room air Sats approaching 100%, the entire time. Review of Systems - Constitutional Reports no additional constitutional complaints, Reports fatigue, Denies fever(s), Reports lack of energy, Reports malaise - Eyes Reports no additional eye complaints - ENT Reports no additional ear, nose, mouth, and throat complaints - Cardiovascular Reports no additional cardiovascular complaints - Respiratory Reports no additional respiratory complaints - Gastrointestinal Reports no additional gastrointestinal complaints - Genitourinary Reports no additional female genitourinary complaints - Musculoskeletal Reports no additional musculoskeletal complaints - Integumentary/Breasts Skin/Breast: Reports no additional skin complaints - Neurologic Reports no additional neurologic complaints - Psychiatric Reports no additional psychiatric complaints - Endocrine Reports no additional endocrine complaints - Hematologic/Lymphatic Reports no additional hematologic/lymphatic complaints - Allergic/Immunologic Reports no additional allergic/immunologic complaints [facility] Medical History: Medical History (Last Reviewed 04/07/21 @ 15:56 by Jaycee Drake MD) Breast cancer Elevated random blood glucose level Facial droop Left hemiparesis Thyroid nodule Ventral hernia Functional capacity: wheelchair bound Patient : No Family History: Family History (Last Reviewed 04/07/21 @ 16:05 by CALI Dacosta) Father Parkinson disease Cardiac disease Mother No problems noted. Unknown Cancer Surgical History: Surgical History (Last Reviewed 04/07/21 @ 16:05 by CALI Dacosta) History of lumpectomy of right breast Social History: Social History (Last Reviewed 04/07/21 @ 16:05 by CALI Dacosta) Living Situation History: Household Members: Family Household Members Other:: son Housing: House Housing Other:: living with others Do you presently have visiting nurse or other home services: No Alcohol History: Unable to assess alcohol history related to: Unknown Alcohol intake: never Tobacco History: Patient Tobacco Use Status: Former Tobacco user Tobacco use type: Cigarette e-Cigarette/Vaping Use: Former Use Second Hand Smoke Exposure: No Advance Directives: Advance Directives Date on File: 03/09/21 Occupation Assessmet: service: No Current occupational status: unemployed Oncology Screenings - ECOG Performance Status ECOG Performance Status: 2 Home Medications and Allergies Home Medications Medication Instructions Recorded Confirmed Type anastrozole 1 mg tablet 1 mg PO DAILY 01/03/21 04/09/21 History lisinopril 40 mg tablet 40 mg PO DAILY 01/03/21 04/09/21 History memantine 28 mg capsule 28 mg PO DAILY 01/03/21 04/09/21 History sprinkle,extended release 24hr metoprolol tartrate 50 mg tablet 50 mg PO BID 01/03/21 04/09/21 History amlodipine 5 mg tablet 5 mg PO DAILY 01/14/21 04/09/21 History Allergies Allergy/AdvReac Type Severity Reaction Status Date / Time No Known Allergies Allergy Verified 04/07/21 16:04 Exam Vital signs: Vital Signs Temp 97.6 F 03/17/21 09:47 Pulse 92 03/17/21 09:47 Resp 18 03/17/21 09:47 BP 117/65 03/17/21 09:47 Pulse Ox 98 03/17/21 09:47 Weight 57.2 kg Body Mass Index 23.8 - Constitutional Present: no acute distress - Routine HEENT Exam Head: Present: normal inspection Eye: Present: normal appearance ENT: Present: mucous membranes moist - Routine Neck Exam Present: full ROM - Routine Respiratory Exam Present: CTAB - Routine Cardiovascular Exam Cardiovascular: Present: RRR, S1, S2 - Routine Abdominal Exam Present: soft, nontender - Routine Rectal Exam Patient deferred: digital exam - Routine Extremities Exam Present: nontender - Routine Back/Spine/Pelvis Exam Back/Spine: Present: full ROM - Routine Skin Exam Present: intact - Routine Neurological Exam Present: alert, oriented X3 - Routine Psychiatric Exam Present: normal affect Progress Note: A/P (1) Acute massive pulmonary embolism Status: Acute Assessment and plan: This is a pleasant 75-year-old lady, who presented with mental status changes and weakness. She was noted to have massive pulmonary emboli. She underwent thrombolytic therapy and is currently on anticoagulation. I offered to switch her over to a NOAC however the son feels that sometimes she throws out the pills from her mouth. Safer to leave her on the injectable. PLAN: She will likely need it on the long-term basis. Underlying risk factor is most likely sedentary status. She will stay on the Lovenox for now. Thanks, (2) Breast cancer Status: Deleted Assessment and plan: Database: 03/15: CBC: WBC 6.8, HGB 12.2, HCT 38.6, PLT 322. CMP: BUN 11, REGISTERED NURSE 1.01. LFTs: 1.2/59/. This is a pleasant 75-year-old lady with a previous history of breast cancer. She recently presented with massive PE with hemodynamic compromise. She improved with thrombolytic therapy. CT scan of the chest revealed: Multiple bilateral pulmonary nodules measuring noncalcified 2 mm nodules and 6 mm calcified nodules. No abnormal mediastinal lymph nodes. Right breast spiculated lesion with mild anterior skin thickening. Correlate with clinical exam. Bibasilar minimal pleural effusion/thickening. Nonobstructive radiopaque calculi lower pole right kidney. There is bilateral hydronephrosis. Hyperdense gallbladder sludge. Cannot exclude small stones. Discharge summary from 03/17: Patient admitted with lethargy and very poor appetite. She has history of dementia. She lives with her son, she recently moved from [place]. She was initially admitted to the ICU due to hypotension requiring vasopressin medications and subsequently developing acute on chronic kidney injury. Renal function improved and creatinine went down from 5.22 to 1.05. She had V/Q scan on March 09 which show high probability for PE with absent perfusion in the entire left lower lobe lingula and part of the left upper lobe. Venous duplex ultrasound found bilateral DVTs. Due to this the patient was diagnosed with cardiogenic shock. she also experienced an episode of SVT requiring adenosine. She developed right-sided heart failure secondary to massive pulmonary embolus. She responded well to tPA and then subsequently heparin. She was transitioned to Lovenox. She has a history of breast cancer and it appears that it has likely reocurred and thus developed embolus. She was also treated for ESBL negative E coli UTI with ceftriaxone and was transitioned to Ceftin for discharge. In terms of her pulmonary embolus and DVT she will remain on Lovenox. She improved significantly. I checked with her son to see where she had the original breast cancer, diagnosed and treated. This was in [place]. One of her sons is there. I advised him to get the records to review. I did explain the next step in workup of the breast mass to her family. They had questions about how aggressive it will be. I did explain to them that if the lead the lump grow it may be more disfiguring to her breast. If the tumor turns out to be ER NE positive, as most likely will be the case 1 can treat her with antiestrogen therapy, with good control. They are willing to proceed with that. l proceeded with bilateral mammogram and ultrasound of the right breast. This was done on 03/18. It revealed: No suspicious left breast finding. Region of architectural distortion and skin thickening within the right breast is related to patient's previous lumpectomy and radiation therapy. This is reassuring. She does not need a biopsy. PLAN: Will continue to monitor her. She will return in 3 months for a follow-up visit. All her son and [id number]'s questions were answered to their satisfaction. Thank you, CC: DR. Macdonald. - Time Spent With Patient Time Spent with Patient (in minutes): 30
[2021-03-31 14:56] VITALS: BP 120/68; PULSE 76; RESP 18; TEMP 36.3; O2SAT 100; BMI 23.4
== END 2021-04-22 | disposition home or self-care (01) ==
LOC: HO.ONC 15:00
PROVIDERS: PCP Internal Medicine; Visit Provider Internal Medicine Medical Oncology
DX: I26.99 Other pulmonary embolism without acute cor pulmonale (principal); I82.403 Acute embolism and thrombosis of unspecified deep veins of lower extremity, bilateral; N63.0 Unspecified lump in unspecified breast; Z85.3 Personal history of malignant neoplasm of breast; Z79.01 Long term (current) use of anticoagulants; Z92.3 Personal history of irradiation
CPT/HCPCS: 99214

== ENCOUNTER 2021-04-14 15:49 | Observation (INO) | payer OTHER, SELFPAY ==
--- NOTE | ~2021-04-14 | CT_ITS ---
EXAMINATION: CT HEAD WITHOUT CONTRAST CLINICAL INFORMATION: Altered mental status. On Lovenox. COMPARISON: No relevant prior imaging. TECHNIQUE: Contiguous axial imaging was performed from the skull base to vertex without intravenous administration of contrast. This CT examination was performed using dose optimization techniques as appropriate, variously including the following: *Automated exposure control *Adjustment of mA and/or kV according to patient size (this includes techniques or standardized protocols for targeted exams where dose is matched to indication/reason for exam; i.e. extremities or head) *Use of iterative reconstruction technique DLP: 644 mGy-cm FINDINGS: There is an acute subdural hematoma over the right cerebral convexity measuring up to 3.5 cm in maximal thickness over the parietal convexity. Mass effect causes near complete effacement of the sulcal spaces within the right supratentorial compartment and there is severe leftward subfalcine herniation measuring 2 cm at the septum pellucidum. There is also severe right uncal herniation causing mesencephalic compression. The calvarium and skull base are intact. Mastoid air cells and middle ear cavities are well aerated. No active paranasal sinus disease. Globes and orbits are symmetric. CT/CT head/brain wo con IMPRESSION: Large acute right holohemispheric subdural hematoma. Mass effect within the right supratentorial compartment causes near complete effacement of the sulcal spaces, 2 cm leftward subfalcine herniation, and severe right uncal herniation causing mesencephalic compression. This critical result was discussed with Dr. West at 8:17 PM on 04/14/2021 and it was ascertained that the content and urgency of the report was understood at the time of direct communication.
--- NOTE | ~2021-04-14 | XR_ITS ---
EXAMINATION: XR CHEST CLINICAL INFORMATION: Low-grade fever COMPARISON: 03/09/2021 TECHNIQUE: Frontal view of the chest was obtained. FINDINGS: There is a 1.9 cm opacity that projects over the right atrium, indeterminate. No other areas of pulmonary opacity with the exception of a stable 0.7 cm calcified granuloma at the left upper lung. The cardiac mediastinal silhouette is unchanged. No acute osseous abnormality. XR/XR chest 1V IMPRESSION: Small focal opacity projects over the right atrium, possibly a pulmonary consolidation, however artifact is also on the differential diagnosis. When the patient is able, formal PA and lateral views are recommended for further assessment.
[2021-04-14 16:11] VITALS: BP 138/90; BP 157/61; PULSE 83; PULSE 91; RESP 20; TEMP 37.8; O2SAT 97; O2SAT 99; BMI 26.5
--- NOTE | 2021-04-14 16:26 | ECG_ITS ---
Test Reason : ALT MENTAL Blood Pressure : / mmHG Vent. Rate : 095 BPM Atrial Rate : 095 BPM P-R Int : 118 ms QRS Dur : 064 ms QT Int : 348 ms P-R-T Axes : 062 -25 017 degrees QTc Int : 437 ms Normal sinus rhythm Nonspecific ST abnormality Abnormal ECG When compared with ECG of 09-MAR-2021 22:24, No significant change was found Referred By: Clementina West Electronically Signed By:Jimmy Martínez
--- NOTE | 2021-04-14 16:31 | ED_ITS ---
HPI - Altered Mental Status General Chief Complaint: Altered Mental Status Stated Complaint: weakness ams dementia Time Seen by Provider: 04/14/21 16:11 Source: EMS Mode of arrival: EMS Limitations: altered mental status History of Present Illness HPI narrative: Patient is brought to the emergency room by EMS. EMS reports that the family stated that the patient has been altered, eating less than usual. Patient has baseline dementia, she is usually able to engage in conversations, but today patient is not talking, not following directions, acting different. Patient is unable to give any history. Per previous notes, patient was discharged from the hospital approximately 1 month ago, patient was here for sepsis, UTI with ESBL, SVT requiring adenosine, massive PE requiring tPA complaint: altered mental status Related Data Home Medications Medication Instructions Recorded Confirmed anastrozole 1 mg tablet 1 mg PO DAILY 01/03/21 04/09/21 lisinopril 40 mg tablet 40 mg PO DAILY 01/03/21 04/09/21 memantine 28 mg capsule 28 mg PO DAILY 01/03/21 04/09/21 sprinkle,extended release 24hr metoprolol tartrate 50 mg tablet 50 mg PO BID 01/03/21 04/09/21 amlodipine 5 mg tablet 5 mg PO DAILY 01/14/21 04/09/21 Previous Rx's Medication Instructions Recorded acetaminophen 500 mg tablet 1,000 mg PO QID PRN #14 tab 12/29/20 (Tylenol Extra Strength) blood sugar diagnostic (FreeStyle #50 ea 03/29/21 Lite Strips) blood-glucose meter (FreeStyle #1 ea 03/29/21 Lite Meter) lancets 28 gauge (FreeStyle #100 ea 03/29/21 Lancets) atorvastatin 40 mg tablet 40 mg PO BEDTIME 90 Days #90 tab 04/04/21 enoxaparin 60 mg/0.6 mL 60 mg SUBCUT Q12H 30 Days #36 ml 04/08/21 subcutaneous syringe Allergies Allergy/AdvReac Type Severity Reaction Status Date / Time No Known Allergies Allergy Verified 04/07/21 16:04 Review of Systems Review of Systems: Yes Unobtainable due to mental condition PMFSH Past Medical History Medical History (Updated 04/14/21 @ 20:42 by Clementina West MD) Breast cancer Elevated random blood glucose level ESBL 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 Unknown Cancer Social History Social History Household Members: Family Household Members Other:: son Housing: House Housing Other:: living with others Do you presently have visiting nurse or other home services: No Unable to assess alcohol history related to: Unknown Alcohol intake: never Patient Tobacco Use Status: Former Tobacco user Tobacco use type: Cigarette e-Cigarette/Vaping Use: Former Use Second Hand Smoke Exposure: No Advance Directives: Yes Advance Directives on File: Yes Advance Directives Date on File: 03/09/21 service: No Current occupational status: unemployed Physical Exam Vital Signs: Vital Signs: Last Vital Signs Temp 100.1 F 04/14/21 16:11 Pulse 91 04/14/21 16:11 Resp 20 04/14/21 16:11 BP 157/61 H 04/14/21 16:11 Pulse Ox 97 04/14/21 16:11 Body Mass Index 26.5 Const: Other: Appearance: Alert. Unwilling to open her eyes, not following commands, occasionally says words without making any sense Eyes: Pupils equal, round and reactive to light. ENT: Pharynx normal. Neck: Normal inspection. Neck supple. No lymph nodes noted. No crepitus CVS: Normal heart rate and rhythm. Pulses normal. Normal S1 and S2 Respiratory: No respiratory distress. Breath sounds normal. No Wheezing. No rales Abdomen: Soft and nontender. No rigidity. No distention. Skin: Skin warm and dry. Slightly pale. Normal skin turgor. Extremities: No lower extremity edema. No Lacerations. No Rash Neuro: Patient unable to follow any commands, moving all extremities, GCS 9 Course Course Course Narrative: I was informed by the patient's nurse that the patient does not have access, we were able to insert an internal jugular on the right side at 18:45. At this time also we were able to get labs, all results pending Patient has history of UTIs, the urine was obtained by straight cath, looks cloudy and foul smelling. Patient is empirically being treated with 2 L of normal saline and ceftriaxone. Her previous urine culture sensitivities, patient is sensitive to ceftriaxone and nitrofurantoin Patient's head CT shows a very significant brain bleed. The radiology report is pending. I discussed the CT scan with the patient's son who is the healthcare proxy and caregiver, discussed the options neuro surgery and aggressive treatment versus SCHOOL PATR[employer]. At this time, the patient reports that yesterday the patient was getting up from her bed to get into the commode, while the patient's son was trying to accommodate the commode next to the patient's med, the patient fell backwards and hit her head. The son states that he did not think that it was a significant fall. Patient was helped up, and was acting normal until yesterday evening. At this time, patient's son wishes to make the patient SCHOOL PATR[employer]. Patient's son would like to take his mother home with hospice care. I discussed the CT findings with the patient's son. Unfortunately, the CT findings are very severe. Mentioned above, the son decided to make his mother SCHOOL PATROL. He is not ready to take her home tonight, patient will be admitted to the hospital and our human services case manager already started the consult for home hospice. The son decided to go home, he is aware that his mother with thigh throughout the night. He will go home and speak to the family regarding this matter. MDM - Altered Mental Status Lab Data Result diagrams: 04/14/21 19:10 Labs: Lab Results 04/14/21 04/14/21 04/14/21 Range/Units 19:10 19:10 19:10 Sodium 138 (135-145) mmol/L Potassium 4.2 (3.3-5.1) mmol/L Chloride 105 (96-108) mmol/L Carbon Dioxide 24 (22-29) mmol/L Anion Gap 13 (12-20) BUN 12 (9-16) mg/dL Creatinine 0.99 (0.5-1.4) mg/dL Estim Creat Clear Calc 40.2 Estimated GFR 55 Random Glucose 190 H D (60-115) mg/dL Lactic Acid 1.3 (0.5-2.0) mmol/L Calcium 8.7 (8.4-10.2) mg/dL Total Bilirubin 1.9 H (0.0-1.0) mg/dL Direct Bilirubin 0.7 H (0.0-0.5) mg/dL AST 15 D (5-31) U/L ALT 11 (0-31) U/L Alkaline Phosphatase 48 (39-117) U/L B-Natriuretic Peptide 385 H (<100) pg/mL Total Protein 6.3 L (6.5-8.0) g/dL Albumin 3.6 (3.5-5.0) g/dL Lipase 15 (8-78) U/L Imaging Data CT scan - head: Radiologist's impression: There is an acute subdural hematoma over the right cerebral convexity measuring up to 3.5 cm in maximal thickness over the parietal convexity. Mass effect causes near complete effacement of the sulcal spaces within the right supratentorial compartment and there is severe leftward subfalcine herniation measuring 2 cm at the septum pellucidum. There is also severe right uncal herniation causing mesencephalic compression. The calvarium and skull base are intact. Mastoid air cells and middle ear cavities are well aerated. No active paranasal sinus disease. Globes and orbits are symmetric. CT/CT head/brain wo con IMPRESSION: Large acute right holohemispheric subdural hematoma. Mass effect within the right supratentorial compartment causes near complete effacement of the sulcal spaces, 2 cm leftward subfalcine herniation, and severe right uncal herniation causing mesencephalic compression. ? This critical result was discussed with Dr. West at 8:17 PM on 04/14/2021 and it was ascertained that the content and urgency of the report was understood at the time of direct communication. Discharge Plan Discharge Clinical Impression: Acute subdural hematoma, Uncal herniation Patient Disposition: Admitted As Inpatient Prescriptions: No Action atorvastatin 40 mg tablet 40 mg PO BEDTIME 90 Days Qty: 90 RF: 3 enoxaparin 60 mg/0.6 mL syringe 60 mg subcut Q12H 30 Days Qty: 36 RF: 6 acetaminophen [Tylenol Extra Strength] 500 mg tablet 1,000 mg PO QID PRN (Reason: fever or pain) Qty: 14 RF: 0 amlodipine 5 mg Tablet 5 mg PO DAILY RF: 0 memantine 28 mg capsule,sprinkle,ER 24hr 28 mg PO DAILY RF: 0 anastrozole 1 mg tablet 1 mg PO DAILY RF: 0 lisinopril 40 mg tablet 40 mg PO DAILY RF: 0 metoprolol tartrate 50 mg tablet 50 mg PO BID RF: 0 (DME) blood-glucose meter [FreeStyle Lite Meter] Kit See Rx Instructions .ROUTE .MEDSUPPLY Qty: 1 RF: 0 (DME) FreeStyle Lite Strips Strip See Rx Instructions .ROUTE .MEDSUPPLY Qty: 50 RF: 11 (DME) lancets [FreeStyle Lancets] 28 gauge misc See Rx Instructions .ROUTE .MEDSUPPLY Qty: 100 RF: 11
[2021-04-14] MEDS: Lidocaine HCl 2 % MPF 5 ML VIAL INFILTRATI (18:09)
[2021-04-14 19:44] LABS: Lactic Acid 1.3 mmol/L (0.5-2.0)
--- NOTE | 2021-04-14 19:44 | PC.NURSE ---
Patient's ct of head positive for significant brain bleed with right sided shift. MD spoke with patient's son who might be making his mother IT IN[employer] ARCHIT[employer] and taking her home for hospice
[2021-04-14 19:49] LABS: Alanine Aminotransferase 11 U/L (0-31); Albumin Level 3.6 g/dL (3.5-5.0); Alkaline Phosphatase 48 U/L (39-117); Anion Gap 13 (12-20); Aspartate Amino Transferase 15 U/L (5-31); Bilirubin Direct 0.7 mg/dL (0.0-0.5); Bilirubin Total 1.9 mg/dL (0.0-1.0); Blood Urea Nitrogen 12 mg/dL (9-16); Calcium 8.7 mg/dL (8.4-10.2); Carbon Dioxide 24 mmol/L (22-29); Chloride 105 mmol/L (96-108); Creatinine Clr Calc Pharmacy 40.2; Estimated Glomerular Filt Rate 55; Glucose Random 190 mg/dL (60-115); Potassium 4.2 mmol/L (3.3-5.1); Sodium 138 mmol/L (135-145); Total Protein 6.3 g/dL (6.5-8.0)
[2021-04-14 19:53] LABS: B Type Natriuretic Peptide 385 pg/mL (<100)
[2021-04-14 20:00] VITALS: BP 157/61; PULSE 91; RESP 20; TEMP 37.8; O2SAT 97
[2021-04-14 20:25] LABS: Lipase 15 U/L (8-78)
[2021-04-14 20:45] LABS: TSH reflex Free T4 1.01 uIU/mL (0.32-4.0)
--- NOTE | 2021-04-14 20:55 | MHC.CM.PN ---
Dr. West met with CM to discuss family request for [facility] B[facility] and hospice at home. Pt has a large subdural hematoma with herniation. Dr. West spoke at length with patients son/HCP Rodri Matson ([phone]), who is agreeable to admission overnight with hospice tomorrow and d/c home. Rodri is [place] speaking. Pt son left before CM could speak with him personally. Rodri will speak with family members. Unable to complete IMM at this time. CHICO spoke with Yajaira PENALOZA from hospice about this patient and family request. Yajaira aware that patient will be admitted for [facility], with intention for hospice at home tomorrow. Referral placed in [employer]. Awaiting bed assignment. CM to follow for d/c needs.
[2021-04-14] MEDS: levETIRAcetam 750 MG in 0.9 % Sodium Chloride 100 ML 400 MG IV (21:19)
[2021-04-14 21:23] VITALS: RESP 25
[2021-04-14] MEDS: Morphine Sulfate 2 MG/ML CARTRIDGE 1 MG IVPUSH (21:23)
[2021-04-14 21:27] LABS: Influenza A PCR NEGATIVE (Negative); Influenza B PCR NEGATIVE (Negative); Resp Syncy Virus RNA Qual PCR NEGATIVE (Negative); SARS COV2 PCR INHOUSE NEGATIVE (Negative)
[2021-04-14] MEDS: Atropine Sulfate 1 % Ophth Sol 2 ML BOTTLE 1 DROP SUBLINGUAL (21:52)
[2021-04-14 22:00] VITALS: BP 144/63; PULSE 100; RESP 27; O2SAT 97
--- NOTE | 2021-04-15 00:01 | PM.IMHP ---
History of Present Illness Date of Service: 04/15/21 Chief Complaint: Fall 75-year-old female with a past medical history of hypertension, CVA with residual deficit, anxiety, history of breast cancer presented to the hospital today with a chief complaint of fall. Patient is drowsy and lethargic. Spoke to the patient's son at bedside. Mentioned that patient wanted to go to the bathroom yesterday around 6:00 p.m.; and the patient's son was trying to help her move the commode to her; patient was seated standing next to the patient's son when he has been trying to move the commode; then showed only should showed and lost balance and fell on the ground; patient's son thinks she probably fell back and hit her head; he to happen quickly that he could not catch her; patient is an also mentioned that she had the stroke she also has like reduced balance. Patient subsequently went to the bed and around 4:00 a.m. in the morning she woke the patient's son up saying that she is having headache; subsequently came to the hospital for further evaluation. Reports that patient was discharged from the hospital about 3 weeks ago since then she has been doing well; Review of the systems is limited given patient is lethargic. ER course: ER team mentioned that urinalysis was abnormal consistent with UTI, given ceftriaxone; exam was limited given patient is not talking she/drowsy and lethargic; obtained a CT head which showed large acute right hollow hemispheric subdural hematoma; mass effect within the right supratentorial compartment causing near complete effacement of the sulcal spaces, 2 cm leftward subfalcine herniation and severe right uncal herniation causing Ms. encephalitic compression.; given these findings the ER doctor spoke to the patient's son who is the healthcare proxy and discussed in detail about the goals of care/critical nature of the situation/poor prognosis; subsequently patient's son decided to keep the patient comfort measures only. ER team tried to make arrangements for hospice transfer but could not do so hence admitted to the hospital. 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 Unknown Cancer Surgical History History of lumpectomy of right breast Social History Household Members: Family Household Members Other:: son Housing: House Housing Other:: living with others Do you presently have visiting nurse or other home services: No Unable to assess alcohol history related to: Unknown Alcohol intake: never Patient Tobacco Use Status: Former Tobacco user Tobacco use type: Cigarette e-Cigarette/Vaping Use: Former Use Second Hand Smoke Exposure: No Advance Directives Date on File: 03/09/21 service: No Current occupational status: unemployed Meds Allergies Allergy/AdvReac Type Severity Reaction Status Date / Time No Known Allergies Allergy Verified 04/07/21 16:04 Active Medications: Current Medications Generic Name Dose Route Start Last Admin Trade Name Freq PRN Reason Stop Dose Admin Levetiracetam 500 mg/ Sodium 105 mls @ 400 mls/hr 04/14/21 23:30 Chloride IV Q12H JOSH Sodium Chloride 3 ml 04/15/21 00:00 0.9 % Sodium Chloride Flush 3 Ml Syringe IVFLUSH QSHIFT [facility] Physical Exam Vital Signs and Narrative: Vital Signs: Last Vital Signs Temp 100.1 F 04/14/21 20:00 Pulse 100 04/14/21 22:00 Resp 27 H 04/14/21 22:00 BP 144/63 H 04/14/21 22:00 Pulse Ox 97 04/14/21 22:00 Body Mass Index 26.5 Examination: General patient lying in the bed comfortably. Not in distress. Spontaneously moves the legs. Results Labs CBC and Chem 7: 04/14/21 23:57 04/14/21 19:10 Labs: Laboratory Results - last 24 hr 04/14/21 04/14/21 04/14/21 19:10 19:10 19:10 Anion Gap 13 Estim Creat Clear Calc 40.2 Estimated GFR 55 Random Glucose 190 H D Lactic Acid 1.3 Calcium 8.7 Total Bilirubin 1.9 H Direct Bilirubin 0.7 H AST 15 D ALT 11 Alkaline Phosphatase 48 B-Natriuretic Peptide 385 H Total Protein 6.3 L Albumin 3.6 Lipase 15 TSH 1.01 Coronavirus (PCR) Influenza Type A (PCR) Influenza Type B (PCR) RSV RNA Qual (PCR) 04/14/21 20:42 Anion Gap Estim Creat Clear Calc Estimated GFR Random Glucose Lactic Acid Calcium Total Bilirubin Direct Bilirubin AST ALT Alkaline Phosphatase B-Natriuretic Peptide Total Protein Albumin Lipase TSH Coronavirus (PCR) NEGATIVE Influenza Type A (PCR) NEGATIVE Influenza Type B (PCR) NEGATIVE RSV RNA Qual (PCR) NEGATIVE Imaging Radiologist's Impressions: Impressions Chest X-Ray 04/14/21 16:27 IMPRESSION: Small focal opacity projects over the right atrium, possibly a pulmonary consolidation, however artifact is also on the differential diagnosis. When the patient is able, formal PA and lateral views are recommended for further assessment. Head CT 04/14/21 19:00 IMPRESSION: Large acute right holohemispheric subdural hematoma. Mass effect within the right supratentorial compartment causes near complete effacement of the sulcal spaces, 2 cm leftward subfalcine herniation, and severe right uncal herniation causing mesencephalic compression. This critical result was discussed with Dr. West at 8:17 PM on 04/14/2021 and it was ascertained that the content and urgency of the report was understood at the time of direct communication. Assessment and Plan (1) Comfort measures only status: Status: Acute 75-year-old female with a past medical history of hypertension, history of CVA with residual deficits, history of ESBL UTI, history of breast cancer, recent admission to the hospital for acute submassive pulmonary embolism/DVTs-on Lovenox currently; presented to the hospital today after a fall. And the workup showed large subdural hematoma with mass effect and herniations; subsequently the patient's healthcare proxy decided to make her comfort measures only given poor prognosis. Comfort measures only: Morphine p.r.n. Ativan p.r.n. for anxiety Keppra p.r.n. for seizures Supplemental oxygen p.r.n. Scopolamine patch Case management follow-up I spoke to the patient's son at bedside, who wanted to keep her mother's comfort measures only; wanted to take her home if possible tomorrow. Quality Stroke Does the patient have a stroke diagnosis?: No VTE Prior VTE?: No VTE Risk Level:: Medical - low VTE Device Contraindication: Procedure Contraindicated VTE Drug Contraindication: Treatment Not Indicated
[2021-04-15 00:03] LABS: MANUAL DIFF FLAG NO
[2021-04-15 00:06] LABS: Basophils Percent Auto 0.2 % (0-2); Hemoglobin 9.4 g/dl (12.0-16.0); Imm Gran Abs Auto 0.04 X10*3/uL (0.00-0.03); Imm Gran Pct Auto 0.4 % (0.0-0.4); Lymphocytes Absolute Auto 1.1 X10*3/uL (1.2-4.9); Lymphocytes Percent Auto 9.8 % (20-40); Mean Corpuscular HGB Conc 32.4 g/dl (31.0-35.0); Mean Corpuscular Volume 86.3 fL (80-98); Mean Platelet Volume 9.9 fL (9.4-12.3); Monocytes Absolute Auto 1.2 X10*3/uL (0.1-1.2); Monocytes Percent Auto 11.4 % (2-11); Neutrophils Absolute Auto 8.4 X10*3/uL (2.0-8.3); Neutrophils Percent Auto 78.2 % (45-73); Platelet Count 429 X10*3/uL (160-400); Red Blood Count 3.36 X10*6/uL (4.20-5.50); Red Cell Distribution Width 16.8 % (11.0-16.0); White Blood Count 10.8 X10*3/uL (4.8-10.8)
[2021-04-15 00:11] LABS: INTERNATIONAL NORM RATIO 1.2 (0.9-1.1); Prothrombin Time 13.4 SEC (9.9-13.0)
[2021-04-15 00:23] LABS: Ammonia 30 umol/L (13-55)
[2021-04-15] MEDS: Scopolamine 1.5 MG PATCH.TD.3 EAR-BEHIND (01:53)
[2021-04-15] MEDS: 0.9 % Sodium Chloride Flush 3 ML SYRINGE IVFLUSH ×2 (01:54→07:30)
[2021-04-15 01:56] VITALS: RESP 24; TEMP 38.8
[2021-04-15] MEDS: Acetaminophen Supp 650 MG SUPP.RECT PR (02:08)
[2021-04-15 03:47] VITALS: RESP 24
[2021-04-15 05:06] VITALS: TEMP 37.8
[2021-04-15 07:39] VITALS: RESP 28
--- NOTE | 2021-04-15 08:47 | P.CDIC_ITS ---
CDI Concurrent Query Service Date: 04/15/21 Documentation Clarification: Please clarify if you are treating a proba ble/suspected/likely or confirmed: Encephalopathy: - Metabolic - Septic - Toxic - Toxic metabolic - Hypertensive - Anoxic - Alcoholic - Hepatic (reported as hepatic failure and needs further specificity as to acute, subacute, or chronic) - Due to a specified condition (such as UTI, hyponatremia, CVA, etc.) - Other (please specify): - Unable to determine Use of terms such as suspected, likely, concern for, or probable (associated with a specific diagnosis that is being evaluated, monitored, or treated as if it exists) are acceptable and can be coded in the inpatient setting, when d ocumented at the time of discharge. COMA Provider Response: Other Other Diagnosis: COMA PLEASE DO NOT DELETE/MODIFY EXISTING CONTENT Additional information is needed in order to code to the highest accuracy and appropriate Severity of Illness (SOI). Please clarify the information noted below in your progress notes and discharge summary. Risk Factors/Clinical Indicators/Treatments Altered mental status, not talking, not following directions. Recent fall and hit head CT Head: significant brain bleed Per ED Impression: Acute Subdural Hematoma, uncal herniation PMH: Dementia, CVA CDS: Pam Vigil RN Contact Number: [phone] Please Review the information above and exercise your independent professional judgment in responding to the query. If you concur, pleas document in the PROGRESS NOTES and DISCHARGE SUMMARY. If you do not agree with the query, please document in the query above. THIS QUERY IS PART OF THE PERMANENT MEDICAL RECORD
[2021-04-15] MEDS: Morphine Sulfate 2 MG/ML CARTRIDGE SUBCUT (08:55)
[2021-04-15] MEDS: levETIRAcetam in NaCl (iso-os) 500 MG/100 ML PIGGYBACK 400 MG IV (11:39)
[2021-04-15] MEDS: Morphine Sulfate 2 MG/ML CARTRIDGE IVPUSH (12:42)
--- NOTE | 2021-04-15 12:46 | P.DS_ITS ---
DS: Providers Provider Date of Service: 04/15/21 Date of admission: 04/14/21 23:15 Primary care physician: Unknown Physician DS: Diagnosis Discharge Diagnosis (1) Acute subdural hematoma: Status: Acute (2) Uncal herniation: Status: Acute DS: Medications Discharge Medications Home Medications: Previous Rx's Medication Instructions Recorded blood sugar diagnostic (FreeStyle #50 ea 03/29/21 Lite Strips) blood-glucose meter (FreeStyle #1 ea 03/29/21 Lite Meter) lancets 28 gauge (FreeStyle #100 ea 03/29/21 Lancets) morphine concentrate 100 mg/5 mL 5 mg PO Q3H PRN #30 ml 04/15/21 (20 mg/mL) oral solution DS: Summary Hospital Course Hospital Course: discharge diagnosis: subdural hematoma with mass effect, with subfalcine and uncal herniation posible aspiration pneumonia coma anemia From H&P on day of a 75-year-old female with a past medical history of hypertension, CVA with residual deficit, anxiety, history of breast cancer presented to the hospital today with a chief complaint of fall. Patient is drowsy and lethargic. Spoke to the patient's son at bedside. Mentioned that patient wanted to go to the bathroom yesterday around 6:00 p.m.; and the patient's son was trying to help her move the commode to her; patient was seated standing next to the patient's son when he has been trying to move the commode; then showed only should showed and lost balance and fell on the ground; patient's son thinks she probably fell back and hit her head; he to happen quickly that he could not catch her; patient is an also mentioned that she had the stroke she also has like reduced balance. Patient subsequently went to the bed and around 4:00 a.m. in the morning she woke the patient's son up saying that she is having headache; subsequently came to the hospital for further evaluation. Reports that patient was discharged from the hospital about 3 weeks ago since then she has been doing well; Review of the systems is limited given patient is lethargic. ER course:? ER team mentioned that urinalysis was abnormal consistent with UTI, given ceftriaxone; exam was limited given patient is not talking she/drowsy and lethargic; obtained a CT head which showed large acute right hollow hemispheric subdural hematoma; mass effect within the right supratentorial compartment causing near complete effacement of the sulcal spaces, 2 cm leftward subfalcine herniation and severe right uncal herniation causing Ms. encephalitic compression.; given these findings the ER doctor spoke to the patient's son who is the healthcare proxy and discussed in detail about the goals of care/critical nature of the situation/poor prognosis; subsequently patient's son decided to keep the patient comfort measures only. ER team tried to make arrangements for hospice transfer but could not do so hence admitted to the hospital. The patient was admitted to the hospital under [facility] care. She was started on prn morphine for pain control. She was seen and accepted by hospice. Her family wanted to take her home on hospice and she is being discharged home with hospice services. Time Spent with Patient Time attestation: Total time spent providing and/or coordinating discharge services: Discharge coordination time: Greater than 30 minutes Quality: Stroke Does the patient have a stroke diagnosis?: No Physical Exam Vital Signs: Vital Signs: Last Vital Signs Temp 100.1 F 04/15/21 05:06 Pulse 100 04/14/21 22:00 Resp 28 H 04/15/21 07:39 BP 144/63 H 04/14/21 22:00 Pulse Ox 97 04/14/21 22:00 Body Mass Index 26.5 Const: Other: appears comfortable. not responding to verbal stimuli. no respiratory distress DS: Data Data Completed and Pending Labs on day of discharge: Laboratory Results - last 24 hr 04/14/21 04/14/21 04/14/21 19:10 19:10 19:10 WBC RBC Hgb Hct MCV MCH MCHC RDW Plt Count MPV Immature Gran % (Auto) Neut % (Auto) Lymph % (Auto) [place] % (Auto) Eos % (Auto) Baso % (Auto) Lymph # (Auto) [place] # (Auto) Eos # (Auto) Baso # (Auto) Abs Immat Gran (auto) Absolute Neuts (auto) Absolute Nucleated RBC Nucleated RBC % (auto) PT INR Sodium 138 Potassium 4.2 Chloride 105 Carbon Dioxide 24 Anion Gap 13 BUN 12 Creatinine 0.99 Estim Creat Clear Calc 40.2 Estimated GFR 55 Random Glucose 190 H D Lactic Acid 1.3 Calcium 8.7 Total Bilirubin 1.9 H Direct Bilirubin 0.7 H AST 15 D ALT 11 Alkaline Phosphatase 48 Ammonia B-Natriuretic Peptide 385 H Total Protein 6.3 L Albumin 3.6 Lipase 15 TSH 1.01 Coronavirus (PCR) Influenza Type A (PCR) Influenza Type B (PCR) RSV RNA Qual (PCR) 04/14/21 04/14/21 04/14/21 20:42 23:57 23:57 WBC 10.8 RBC 3.36 L D Hgb 9.4 L D Hct 29.0 L D MCV 86.3 MCH 28.0 MCHC 32.4 RDW 16.8 H Plt Count 429 H D MPV 9.9 Immature Gran % (Auto) 0.4 Neut % (Auto) 78.2 H Lymph % (Auto) 9.8 L [place] % (Auto) 11.4 H Eos % (Auto) 0.0 Baso % (Auto) 0.2 Lymph # (Auto) 1.1 L [place] # (Auto) 1.2 Eos # (Auto) 0.0 Baso # (Auto) 0.0 Abs Immat Gran (auto) 0.04 H Absolute Neuts (auto) 8.4 H Absolute Nucleated RBC 0.000 Nucleated RBC % (auto) 0.0 PT 13.4 H INR 1.2 H Sodium Potassium Chloride Carbon Dioxide Anion Gap BUN Creatinine Estim Creat Clear Calc Estimated GFR Random Glucose Lactic Acid Calcium Total Bilirubin Direct Bilirubin AST ALT Alkaline Phosphatase Ammonia B-Natriuretic Peptide Total Protein Albumin Lipase TSH Coronavirus (PCR) NEGATIVE Influenza Type A (PCR) NEGATIVE Influenza Type B (PCR) NEGATIVE RSV RNA Qual (PCR) NEGATIVE 04/14/21 23:57 WBC RBC Hgb Hct MCV MCH MCHC RDW Plt Count MPV Immature Gran % (Auto) Neut % (Auto) Lymph % (Auto) [place] % (Auto) Eos % (Auto) Baso % (Auto) Lymph # (Auto) [place] # (Auto) Eos # (Auto) Baso # (Auto) Abs Immat Gran (auto) Absolute Neuts (auto) Absolute Nucleated RBC Nucleated RBC % (auto) PT INR Sodium Potassium Chloride Carbon Dioxide Anion Gap BUN Creatinine Estim Creat Clear Calc Estimated GFR Random Glucose Lactic Acid Calcium Total Bilirubin Direct Bilirubin AST ALT Alkaline Phosphatase Ammonia 30 B-Natriuretic Peptide Total Protein Albumin Lipase TSH Coronavirus (PCR) Influenza Type A (PCR) Influenza Type B (PCR) RSV RNA Qual (PCR) Discharge Plan Discharge Patient Disposition: Hospice - Home Discharge Diagnosis: subdural hematoma with herniation Referrals: Karan DOAN [Outside] - 1 Week Physician,Unknown [Primary Care Provider] - 1 Week Discharge Medications: New morphine concentrate 100 mg/5 mL (20 mg/mL) solution 5 mg PO Q3H PRN (Reason: pain) Qty: 30 RF: 0 Discontinued atorvastatin 40 mg tablet 40 mg PO BEDTIME 90 Days Qty: 90 RF: 3 enoxaparin 60 mg/0.6 mL syringe 60 mg subcut Q12H 30 Days Qty: 36 RF: 6 acetaminophen [Tylenol Extra Strength] 500 mg tablet 1,000 mg PO QID PRN (Reason: fever or pain) Qty: 14 RF: 0 amlodipine 5 mg Tablet 5 mg PO DAILY RF: 0 quetiapine 50 mg tablet 1 tab PO BEDTIME RF: 0 memantine 28 mg capsule,sprinkle,ER 24hr 28 mg PO DAILY RF: 0 anastrozole 1 mg tablet 1 mg PO DAILY RF: 0 lisinopril 40 mg tablet 40 mg PO DAILY RF: 0 metoprolol tartrate 50 mg tablet 50 mg PO BID RF: 0 No Action (DME) blood-glucose meter [FreeStyle Lite Meter] Kit See Rx Instructions .ROUTE .MEDSUPPLY Qty: 1 RF: 0 (DME) FreeStyle Lite Strips Strip See Rx Instructions .ROUTE .MEDSUPPLY Qty: 50 RF: 11 (DME) lancets [FreeStyle Lancets] 28 gauge misc See Rx Instructions .ROUTE .MEDSUPPLY Qty: 100 RF: 11 Discharge Orders: Discharge Order (Routine); Ordered 04/15/21 Ordered By: Jenny Cross Activity on Discharge: As tolerated Stand Alone Forms: Patient Portal Discharge page Care Plan Goals: comfort Health Concerns: subdural hematoma Plan of Treatment: Home with hospice care Assessment: see discharge summary
== END 2021-04-15 14:00 | disposition hospice, home (50) ==
LOC: HO.ED 20:42 → HO.IMC 04-15 08:08 → HO.EDOVER 04-15 13:01 → HO.IMC 04-15 13:01
PROVIDERS: Admitting Provider Hospitalist; Emergency Provider Emergency Medicine; PCP Internal Medicine; Visit Provider Family Medicine
DX: I62.01 Nontraumatic acute subdural hemorrhage (principal); G93.5 Compression of brain; R41.82 Altered mental status, unspecified; E78.00 Pure hypercholesterolemia, unspecified; I10 Essential (primary) hypertension; G30.9 Alzheimer's disease, unspecified; F02.81 Dementia in other diseases classified elsewhere, unspecified severity, with behavioral disturbance; Z20.822 Contact with and (suspected) exposure to COVID-19; Z79.899 Other long term (current) drug therapy
CPT/HCPCS: 0241U; 36415; 70450; 71045; 80048; 80076; 82140; 83605; 83690; 83880; 84443; 85025; 85610; 87040; 93005; 96361; 96365; 96372; 96375; 96376; 99219; 99285; J1953; J2270